=== PATIENT | female | born 2000 | race Caucasian/White ===

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

== ENCOUNTER 2019-03-07 19:18 | Emergency (ER) | payer OTHER ==
[2019-03-07] MEDS ORDERED: MORPHINE SULFATE 2 MG INJ IV ONE (19:37)
[2019-03-07] MEDS ORDERED: Zofran 4 MG/2 ML VIAL IV ONE (19:37)
[2019-03-07] MEDS ORDERED: Sodium Chloride 0.9% 1000 ML 1,000 ML IV STA (19:37)
--- NOTE | 2019-03-07 19:37 | ERPHSYRPT ---
- History of Present Illness Time Seen by Provider: 03/07/19 19:30 Historian: patient, other (friend) Exam Limitations: no limitations Patient Subjective Stated Complaint: Abdominal pain Triage Nursing Assessment: Patient ambulated back to ED and transferred to bed per self. Patient A+O X 3. Patient's skin pink, warm and dry. Patient complains of abdominal pain for one month with N/V. Patient denies diarrhea. Patient's abdomen flat and soft with BS X4. Patient complains of sharp abdominal pain . 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 Physician History: as per patient, patient has diffuse abd pain for a month, got worse for last 3 days along with nausea. Denies any chest pain Timing/Duration: intermittent Activities at Onset: none Quality: cramping Abdominal Pain Onset Location: periumbilical, generalized abdomen Pain Radiation: no radiation Severity of Pain-Max: moderate Severity of Pain-Current: moderate Modifying Factors: Improves With: nothing Associated Symptoms: No chest pain, No diaphoresis, No diarrhea, No headache, No neck pain, No shortness of breath, No syncope, No weakness Previous symptoms: same symptoms as today Allergies/Adverse Reactions: mirtazapine [From Remeron] Allergy (Intermediate, Verified 03/07/19 19:28) Rash Home Medications: Metoprolol Succinate 25 mg Xl* [Toprol-Xl 25MG Tablets] 1 tab PO DAILY [History] Hx Tetanus, Diphtheria Vaccination/Date Given: No Hx Influenza Vaccination/Date Given: No Hx Pneumococcal Vaccination/Date Given: No Immunizations Up to Date: Yes - Review of Systems Constitutional: No Fever, No Chills Eyes: No Symptoms Ears, Nose, & Throat: No Symptoms Respiratory: No Cough, No Dyspnea Cardiac: No Chest Pain, No Edema, No Syncope Abdominal/Gastrointestinal: Abdominal Pain, No Nausea, No Vomiting, No Diarrhea Genitourinary Symptoms: No Dysuria Musculoskeletal: No Back Pain, No Neck Pain Skin: No Rash Neurological: No Dizziness, No Focal Weakness, No Sensory Changes Psychological: No Symptoms Endocrine: No Symptoms All Other Systems: Reviewed and Negative - Past Medical History Pertinent Past Medical History: Yes Neurological History: Other ENT History: No Pertinent History Cardiac History: No Pertinent History Respiratory History: No Pertinent History Endocrine Medical History: No Pertinent History Musculoskeletal History: Fractures GI Medical History: Pancreatitis, Ulcer, Other History: No Pertinent History Psycho-Social History: Anxiety, Depression, Other Female Reproductive Disorders: No Pertinent History Other Medical History: Concussion x3, vertigo, borderline personality, polyps in nasal canal, PTSD, broke growth plate in shoulder - Past Surgical History Past Surgical History: No Neuro Surgical History: No Pertinent History Cardiac: No Pertinent History Respiratory: No Pertinent History Gastrointestinal: No Pertinent History, Other Genitourinary: No Pertinent History Musculoskeletal: No Pertinent History Female Surgical History: No Pertinent History Other Surgical History: no surgeries, egd - Social History Smoking Status: Never smoker Exposure to second hand smoke: Yes Drug Use: none Patient Lives Alone: No - Female History Hx Last Menstrual Period: 2 weeks agp Hx Now: No - Nursing Vital Signs Nursing Vital Signs: Initial Vital Signs Temperature 98.1 F 03/07/19 19:30 Pain Scale Pain Intensity 5 - Physical Exam General Appearance: no apparent distress, alert, other (patient 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 for for 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 and 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 female RN) Eye Exam: PERRL/EOMI, eyes nml inspection Ears, Nose, Throat Exam: normal ENT inspection, pharynx normal, moist mucous membranes Neck Exam: normal inspection, non-tender, supple, full range of motion Respiratory Exam: normal breath sounds, lungs clear, No respiratory distress Cardiovascular Exam: regular rate/rhythm, normal heart sounds Gastrointestinal/Abdomen Exam: soft, normal bowel sounds, tenderness, No mass, No organomegaly, No splenomegaly Pelvic Exam: deferred Back Exam: normal inspection, normal range of motion, No CVA tenderness, No vertebral tenderness Extremity Exam: normal inspection, normal range of motion, pelvis stable Neurologic Exam: alert, 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, cooperative, normal mood/affect, nml cerebellar function, sensation nml, No motor deficits Skin Exam: normal color, warm, dry - CT Exams Abdomen/Pelvis CT Interpretation: Other (Right ovary and cyst and acute enteritis) Ordered Tests: Active Orders 24 hr Category Date Time Status IV Insertion STAT Care 03/07/19 19:37 Active ABDOMEN AND PELVIS W CONTRAST [CT] Stat Exams 03/07/19 19:37 Taken CBC W DIFF Stat Lab 03/07/19 20:00 Completed CMP Stat Lab 03/07/19 20:00 Completed HCG QUALITATIVE,SERUM Stat Lab 03/07/19 20:00 Completed LIPASE Stat Lab 03/07/19 20:00 Completed UA W/RFX UR CULTURE Stat Lab 03/07/19 20:04 Completed Medication Summary Discontinued Medications Generic Name Dose Route Start Last Admin Trade Name Reynaldo PRN Reason Stop Dose Admin Sodium Chloride 1,000 mls @ 999 mls/hr 03/07/19 19:37 03/07/19 20:07 Sodium Chloride 0.9% 1000 Ml IV 03/07/19 20:37 999 mls/hr .Q1H1M STA Administration Sodium Chloride Confirm 03/07/19 20:04 Sodium Chloride 0.9% 1000 Ml Administered 03/07/19 20:05 Dose 1,000 mls @ ud .ROUTE .STK-MED ONE Morphine Sulfate 2 mg 03/07/19 19:37 03/07/19 20:06 Morphine Sulfate 2 Mg Inj IV 03/07/19 19:38 2 mg STAT ONE Administration Morphine Sulfate Confirm 03/07/19 20:04 Morphine Sulfate 2 Mg Inj Administered 03/07/19 20:05 Dose 2 mg .ROUTE .STK-MED ONE Ondansetron HCl 4 mg 03/07/19 19:37 03/07/19 20:05 Zofran 4 Mg/2 Ml Vial IV 03/07/19 19:38 4 mg STAT ONE Administration Ondansetron HCl Confirm 03/07/19 20:04 Zofran 4 Mg/2 Ml Vial Administered 03/07/19 20:05 Dose 4 mg .ROUTE .STK-MED ONE Lab/Rad Data: Laboratory Result Diagrams 03/07/19 20:00 03/07/19 20:00 Laboratory Results 03/07/19 03/07/19 03/07/19 Range/Units 20:04 20:00 20:00 WBC (4.0-10.5) K/mm3 RBC (4.1-5.4) M/mm3 Hgb (12.0-16.0) gm/dl Hct (35-47) % MCV (78-100) fl MCH (26-32) pg MCHC (32-36) g/dl RDW (11.5-14.0) % Plt Count (150-450) K/mm3 MPV (6-9.5) fl Gran % (36.0-66.0) % Eos # (Auto) (0-0.5) Absolute Lymphs (auto) (1.0-4.6) Absolute Monos (auto) (0.0-1.3) Lymphocytes % (24.0-44.0) % Monocytes % (0.0-12.0) % Eosinophils % (0.00-5.0) % Basophils % (0.0-0.4) % Absolute Granulocytes (1.4-6.9) Basophils # (0-0.4) Sodium 142 (137-145) mmol/L Potassium 3.8 (3.5-5.1) mmol/L Chloride 106 (98-107) mmol/L Carbon Dioxide 25 (22-30) mmol/L Anion Gap 15.6 H (5-15) MEQ/L BUN 9 (7-17) mg/dL Creatinine 0.78 (0.52-1.04) mg/dL Estimated GFR > 60.0 ML/MIN Glucose 88 (74-106) mg/dL Calcium 9.5 (8.4-10.2) mg/dL Total Bilirubin 0.70 (0.2-1.3) mg/dL AST 20 (14-36) U/L ALT 15 (0-35) U/L Alkaline Phosphatase 101 (38-126) U/L Serum Total Protein 8.1 (6.3-8.2) g/dL Albumin 4.6 (3.5-5.0) g/dL Lipase 173 (23-300) U/L Serum , Qual NEGATIVE (Negative) Urine Color YELLOW (YELLOW) Urine Appearance SLIGHTLY CLOUDY (CLEAR) Urine pH 5.0 (5-6) Ur Specific [place] 1.018 (1.005-1.025) Urine Protein NEGATIVE (Negative) Urine Ketones NEGATIVE (NEGATIVE) Urine Blood NEGATIVE (0-5) Star/ul Urine Nitrite NEGATIVE (NEGATIVE) Urine Bilirubin NEGATIVE (NEGATIVE) Urine Urobilinogen NEGATIVE (0-1) mg/dL Ur Leukocyte Esterase TRACE (NEGATIVE) Urine WBC (Auto) 0-2 (0-5) /HPF Urine RBC (Auto) NONE (0-2) /HPF U Epithel Cells (Auto) RARE (FEW) /HPF Urine Bacteria (Auto) NONE (NEGATIVE) /HPF Urine Mucus (Auto) SLIGHT (NEGATIVE) /HPF Urine Culture Reflexed NO (NO) Urine Glucose NEGATIVE (NEGATIVE) mg/dL 03/07/19 Range/Units 20:00 WBC 9.1 (4.0-10.5) K/mm3 RBC 4.64 (4.1-5.4) M/mm3 Hgb 13.5 (12.0-16.0) gm/dl Hct 41.2 (35-47) % MCV 88.8 (78-100) fl MCH 29.1 (26-32) pg MCHC 32.8 (32-36) g/dl RDW 12.9 (11.5-14.0) % Plt Count 246 (150-450) K/mm3 MPV 10.9 H (6-9.5) fl Gran % 71.4 H (36.0-66.0) % Eos # (Auto) 0.03 (0-0.5) Absolute Lymphs (auto) 1.91 (1.0-4.6) Absolute Monos (auto) 0.66 (0.0-1.3) Lymphocytes % 20.9 L (24.0-44.0) % Monocytes % 7.2 (0.0-12.0) % Eosinophils % 0.3 (0.00-5.0) % Basophils % 0.2 (0.0-0.4) % Absolute Granulocytes 6.52 (1.4-6.9) Basophils # 0.02 (0-0.4) Sodium (137-145) mmol/L Potassium (3.5-5.1) mmol/L Chloride (98-107) mmol/L Carbon Dioxide (22-30) mmol/L Anion Gap (5-15) MEQ/L BUN (7-17) mg/dL Creatinine (0.52-1.04) mg/dL Estimated GFR ML/MIN Glucose (74-106) mg/dL Calcium (8.4-10.2) mg/dL Total Bilirubin (0.2-1.3) mg/dL AST (14-36) U/L ALT (0-35) U/L Alkaline Phosphatase (38-126) U/L Serum Total Protein (6.3-8.2) g/dL Albumin (3.5-5.0) g/dL Lipase (23-300) U/L Serum , Qual (Negative) Urine Color (YELLOW) Urine Appearance (CLEAR) Urine pH (5-6) Ur Specific [place] (1.005-1.025) Urine Protein (Negative) Urine Ketones (NEGATIVE) Urine Blood (0-5) Star/ul Urine Nitrite (NEGATIVE) Urine Bilirubin (NEGATIVE) Urine Urobilinogen (0-1) mg/dL Ur Leukocyte Esterase (NEGATIVE) Urine WBC (Auto) (0-5) /HPF Urine RBC (Auto) (0-2) /HPF U Epithel Cells (Auto) (FEW) /HPF Urine Bacteria (Auto) (NEGATIVE) /HPF Urine Mucus (Auto) (NEGATIVE) /HPF Urine Culture Reflexed (NO) Urine Glucose (NEGATIVE) mg/dL - Progress Progress: improved Progress Note: 03/07/19 21:[address] report. Arm on a hold with vrad Counseled pt/family regarding: lab results, diagnosis, need for follow-up, rad results - Departure Departure Disposition: Home Clinical Impression: Enteritis, Abdominal pain Ovarian cyst Qualifiers: Laterality: right Qualified Code(s): N83.201 - Unspecified ovarian cyst, right side Condition: Stable Critical Care Time: No Referrals: LYNETTE DOHERTY [Primary Care Provider] - Forms: Work/School Release Form Plan of Treatment: See PCP in 2-3 days. Return to ER for emergency Prescriptions: Metronidazole 500 mg [Flagyl 500 MG] 500 mg PO TID 7 Days #21 tablet
[2019-03-07 20:04] LABS: BASOPHIL % 0.2 % (0.0-0.4); Basophil (Absolute #) 0.02 (0-0.4); Eosinophil % 0.3 % (0.00-5.0); Eosinophil (Absolute #) 0.03 (0-0.5); Granulocyte Absolute (ANC) 6.52 (1.4-6.9); Granulocytes % 71.4 % (36.0-66.0); Hematocrit 41.2 % (35-47); Hemoglobin 13.5 gm/dl (12.0-16.0); Lymphocyte (Absolute #) 1.91 (1.0-4.6); Lymphocytes % 20.9 % (24.0-44.0); Mean Cell Volume 88.8 fl (78-100); Mean Corpuscular Hemoglobin 29.1 pg (26-32); Mean Corpuscular Hgb Concent. 32.8 g/dl (32-36); Mean Platelet Volume 10.9 fl (6-9.5); Monocyte (Absolute #) 0.66 (0.0-1.3); Monocytes % 7.2 % (0.0-12.0); Platelet Count 246 K/mm3 (150-450); Red Blood Count 4.64 M/mm3 (4.1-5.4); Red Cell Distribution Width 12.9 % (11.5-14.0); White Blood Count 9.1 K/mm3 (4.0-10.5)
[2019-03-07] MEDS ORDERED: Sodium Chloride 0.9% 1000 ML 1,000 ML ONE (20:04)
[2019-03-07] MEDS ORDERED: Zofran 4 MG/2 ML VIAL ONE (20:04)
[2019-03-07] MEDS ORDERED: MORPHINE SULFATE 2 MG INJ ONE (20:04)
[2019-03-07 20:14] LABS: ALBUMIN 4.6 g/dL (3.5-5.0); ALKALINE PHOSPHATASE 101 U/L (38-126); ANION GAP 15.6 MEQ/L (5-15); BLOOD UREA NITROGEN 9 mg/dL (7-17); CHLORIDE 106 mmol/L (98-107); Calcium 9.5 mg/dL (8.4-10.2); Carbon Dioxide 25 mmol/L (22-30); Creatinine 1 0.78 mg/dL (0.52-1.04); Glucose 88 mg/dL (74-106); LIPASE 173 U/L (23-300); Potassium 3.8 mmol/L (3.5-5.1); SGOT/AST 20 U/L (14-36); SGPT/ALT 15 U/L (0-35); SODIUM 142 mmol/L (137-145); Total Protein 8.1 g/dL (6.3-8.2)
[2019-03-07 20:23] LABS: Appearance SLIGHTLY CLOUDY (CLEAR); Bilirubin NEGATIVE (NEGATIVE); Blood NEGATIVE Ery/ul (0-5); Epithelial Cells RARE /HPF (FEW); Glucose NEGATIVE (NEGATIVE); Ketones NEGATIVE (NEGATIVE); Leukocyte Esterase TRACE (NEGATIVE); Mucus SLIGHT /HPF (NEGATIVE); Nitrite NEGATIVE (NEGATIVE); Protein,Urine Dip NEGATIVE (Negative); Specific Gravity 1.018 (1.005-1.025); Urobilinogen NEGATIVE mg/dL (0-1); WBC 0-2 /HPF (0-5)
[2019-03-07 21:21] VITALS: O2SAT 99
[2019-03-07 22:48] VITALS: BP 127/80; PULSE 86
--- NOTE | 2019-03-08 08:49 | XRAY ---
Indication: Upper abdomen pain, nausea, and vomiting. History of stomach ulcers and pancreatitis. Multiple contiguous axial images obtained through the abdomen and pelvis using 80 cc Isovue 370 contrast only. Comparison: November 25, 2016. Lung bases remain clear. Heart is not enlarged. Stomach is distended with food/fluid. Noncontrasted stomach and bowel loops appear nonobstructed. Small bowel loops now demonstrates mild fluid distention with wall thickening/enhancement, possible enteritis. Normal appendix. New 4 cm right ovary cyst. Tiny cul-de-sac fluid presumed physiologic from rupture/leaking cyst. No free air. Remaining liver, gallbladder, pancreas, spleen, adrenal glands, kidneys, ureters, bladder, uterus, and aorta appear unremarkable. No pathologic retroperitoneal lymphadenopathy. Osseous structures intact. Impression: 1. New 4 cm right ovary cyst with tiny cul-de-sac fluid. 2. Mild fluid distended small bowel loops with wall thickening/enhancement. Rule out enteritis. 3. Remaining CT abdomen/pelvis with contrast exam is negative. Comment: Preliminary interpretation was made by [facility]. No critical discrepancy. CTDI 10.95
== END 2019-03-07 22:49 | disposition home or self-care (01) ==
LOC: ED 19:18
DX: R10.9 Unspecified abdominal pain (principal); N83.201 Unspecified ovarian cyst, right side
CPT/HCPCS: 36000; 36415; 74177; 80053; 81001; 81025; 83690; 85025; 96360; 96374; 96375; 99284; J2270; J2405

== ENCOUNTER 2019-11-20 18:23 | Emergency (ER) | payer OTHER ==
[2019-11-20] MEDS ORDERED: Zofran 4 MG/2 ML VIAL IV ONE (19:20)
[2019-11-20] MEDS ORDERED: Sodium Chloride 0.9% 1000 ML 1,000 ML IV STA (19:20)
[2019-11-20] MEDS ORDERED: MORPHINE SULFATE 2 MG INJ IV ONE (19:20)
[2019-11-20] MEDS ORDERED: Zofran 4 MG/2 ML VIAL ONE (19:27)
[2019-11-20] MEDS ORDERED: Sodium Chloride 0.9% 1000 ML 1,000 ML ONE (19:27)
[2019-11-20] MEDS ORDERED: MORPHINE SULFATE 2 MG INJ ONE (19:27)
[2019-11-20 19:30] LABS: Absolute Neutrophil Ct (ANC) 4.91 (1.4-6.9); BASOPHIL % 0.3 % (0.0-0.4); Basophil (Absolute #) 0.02 (0-0.4); Eosinophil % 0.9 % (0.00-5.0); Eosinophil (Absolute #) 0.07 (0-0.5); Hematocrit 41.5 % (35-47); Hemoglobin 13.6 gm/dl (12.0-16.0); Lymphocyte (Absolute #) 1.89 (1.0-4.6); Lymphocytes % 24.8 % (24.0-44.0); Mean Cell Volume 88.9 fl (78-100); Mean Corpuscular Hemoglobin 29.1 pg (26-32); Mean Corpuscular Hgb Concent. 32.8 g/dl (32-36); Mean Platelet Volume 11.3 fl (7.5-11.0); Monocyte (Absolute #) 0.73 (0.0-1.3); Monocytes % 9.6 % (0.0-12.0); Neutrophil % 64.4 % (36.0-66.0); Platelet Count 243 K/mm3 (150-450); Red Blood Count 4.67 M/mm3 (4.1-5.4); Red Cell Distribution Width 12.8 % (11.5-14.0); White Blood Count 7.6 K/mm3 (4.0-10.5)
[2019-11-20 19:34] LABS: ALBUMIN 4.4 g/dL (3.5-5.0); ALKALINE PHOSPHATASE 122 U/L (38-126); ANION GAP 12.2 MEQ/L (5-15); BLOOD UREA NITROGEN 9 mg/dL (7-17); CHLORIDE 106 mmol/L (98-107); Calcium 9.2 mg/dL (8.4-10.2); Carbon Dioxide 25 mmol/L (22-30); Creatinine 1 0.79 mg/dL (0.52-1.04); Glucose 88 mg/dL (74-106); LIPASE 75 U/L (23-300); Potassium 3.8 mmol/L (3.5-5.1); SGOT/AST 27 U/L (14-36); SGPT/ALT 27 U/L (0-35); SODIUM 140 mmol/L (137-145); Total Protein 7.8 g/dL (6.3-8.2)
[2019-11-20 20:40] LABS: Appearance SLIGHTLY CLOUDY (CLEAR); Bilirubin NEGATIVE (NEGATIVE); Blood NEGATIVE Ery/ul (0-5); Epithelial Cells RARE /HPF (FEW); Glucose NEGATIVE (NEGATIVE); Ketones NEGATIVE (NEGATIVE); Leukocyte Esterase NEGATIVE (NEGATIVE); Mucus SLIGHT /HPF (NEGATIVE); Nitrite NEGATIVE (NEGATIVE); Protein,Urine Dip NEGATIVE (Negative); Specific Gravity 1.024 (1.005-1.025); Urobilinogen 2 mg/dL (0-1); WBC 0-2 /HPF (0-5)
[2019-11-20 20:41] LABS: Bacteria NONE SEEN /HPF (NEGATIVE)
--- NOTE | 2019-11-20 21:43 | ERPHSYRPT ---
- History of Present Illness Time Seen by Provider: 11/20/19 19:20 Historian: patient Exam Limitations: no limitations Patient Subjective Stated Complaint: Patient has a history of pancreatitis and ovarian cysts. The patient states that she began having pain after she ate breakfast this morning, but has had nausea and vomiting for the past couple weeks. Pain would not subside, so patient called doctor and was told to come to the ER> Triage Nursing Assessment: Patient is ambulatory, alert and oriented, color within normal limits..is having abdoming pain, mostly on left side, bowel sounds are present x4, but hypoactive on left quadrants, patient complains of n/ v for past couple weeks, but not diarrhea. Physician History: Patient is a 19-year-old female presents to our ED with intermittent abdominal pain for 2 weeks. Pain is primarily at her left upper quadrant left flank area. Pain typically occurs after she eats. Patient feels somewhat nauseous. She has vomited several times in the past due to pain. No diarrhea. Patient has infrequent bowel movements. No trauma. No fevers. No pelvic pain. No vaginal discharge. Patient has a history of pancreatitis is concerned that she may have pancreatitis at this time. She also has a history of ovarian cyst. However her pain is not in her pelvis. Symptoms are mild to moderate in intensity. No specific worsening or improving factors. Patient is otherwise healthy. She voices no other complaints at this time. Timing/Duration: week(s) (2 weeks) Activities at Onset: other (Pain typically occurs after she eats.) Quality: cramping, other (Pain described as a cramp-like sensation that is intermittent.) Abdominal Pain Onset Location: [facility] Pain Radiation: no radiation Severity of Pain-Max: moderate Severity of Pain-Current: none Modifying Factors: Improves With: other Associated Symptoms: No back, No chest pain, No diaphoresis, No diarrhea, No fever/chills, No headache, No heartburn, No loss of appetite, No nausea, No neck pain, No shortness of breath, No syncope, No weakness Allergies/Adverse Reactions: mirtazapine [From Remeron] Allergy (Intermediate, Verified 11/20/19 19:29) Tightness of Throat Home Medications: Metoprolol Succinate 25 mg Xl* [Toprol-Xl 25MG Tablets] 2 tab PO BID 09/20/ 19 [History] Albuterol 8 gm Mdi Hfa [Ventolin Hfa MDI] 2 puff NEB QID 11/20/19 [History ] Aripiprazole [Abilify Maintena] 400 mg IM 11/20/19 [History] Hydroxyzine HCl 100 mg PO HS 11/20/19 [History] Hx Tetanus, Diphtheria Vaccination/Date Given: Yes Hx Influenza Vaccination/Date Given: No Hx Pneumococcal Vaccination/Date Given: No Immunizations Up to Date: Yes Travel Risk - International Travel Have you traveled outside of the country in past 3 weeks: No Have you or anyone close to you been diagnosed with or: No Do your reside in a community with a known COVID-19 case?: Yes If Yes where:: [facility] - Coronavirus Screening Has patient experienced Coronavirus symptoms: No - Review of Systems Constitutional: No Symptoms, No Fever, No Chills Eyes: No Symptoms Ears, Nose, & Throat: No Symptoms Respiratory: No Symptoms, No Cough, No Dyspnea Cardiac: No Symptoms, No Chest Pain, No Edema, No Syncope Abdominal/Gastrointestinal: No Symptoms, Abdominal Pain, Nausea, Vomiting, No Diarrhea Genitourinary Symptoms: No Symptoms, No Dysuria Musculoskeletal: No Symptoms, No Back Pain, No Neck Pain Skin: No Symptoms, No Rash Neurological: No Symptoms, No Dizziness, No Focal Weakness, No Sensory Changes Psychological: No Symptoms Endocrine: No Symptoms Hematologic/Lymphatic: No Symptoms Immunological/Allergic: No Symptoms All Other Systems: Reviewed and Negative - Past Medical History Pertinent Past Medical History: Yes Neurological History: No Pertinent History, Migraines, Other ENT History: No Pertinent History Cardiac History: No Pertinent History, Other Respiratory History: Asthma Endocrine Medical History: No Pertinent History Musculoskeletal History: No Pertinent History, Fractures GI Medical History: Pancreatitis, Ulcer, Other History: No Pertinent History Psycho-Social History: Anxiety, Bipolar, Depression, Other Female Reproductive Disorders: No Pertinent History, Other Other Medical History: Murmur and rapid heart rate. R foot fx currently; pt does not recall specific bone. Bone disease, unknown. Vertigo. Ovarian cysts. PTSD, and borderline personality disorder - Past Surgical History Past Surgical History: No Neuro Surgical History: No Pertinent History Cardiac: No Pertinent History Respiratory: No Pertinent History Gastrointestinal: No Pertinent History, Other Genitourinary: No Pertinent History Musculoskeletal: No Pertinent History Female Surgical History: No Pertinent History Other Surgical History: no surgeries, egd and colonoscopy - Social History Smoking Status: Never smoker Exposure to second hand smoke: Yes Drug Use: none Patient Lives Alone: No (with mom) - Female History Hx Last Menstrual Period: 11/03/2019 Hx Now: No - Nursing Vital Signs Nursing Vital Signs: Initial Vital Signs Temperature 98.8 F 11/20/19 19:09 Pulse Rate 100 H 11/20/19 19:09 Blood Pressure 124/75 11/20/19 19:09 O2 Sat by Pulse Oximetry 100 11/20/19 19:09 Pain Scale Pain Intensity 3 - Physical Exam General Appearance: no apparent distress, alert Eye Exam: PERRL/EOMI, eyes nml inspection Ears, Nose, Throat Exam: normal ENT inspection, pharynx normal, moist mucous membranes Neck Exam: normal inspection, non-tender, supple, full range of motion Respiratory Exam: normal breath sounds, lungs clear, No respiratory distress Cardiovascular Exam: regular rate/rhythm, normal heart sounds Gastrointestinal/Abdomen Exam: soft, tenderness, other (Mild tenderness to palpation at left flank left upper quadrant.), No mass, No guarding, No pulsatile mass Pelvic Exam: not done Rectal Exam: deferred Back Exam: normal inspection, normal range of motion, No CVA tenderness, No vertebral tenderness Extremity Exam: normal inspection, normal range of motion, pelvis stable Neurologic Exam: alert, 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, cooperative, normal mood/affect, nml cerebellar function, sensation nml, No motor deficits Skin Exam: normal color, warm, dry Lymphatic Exam: adenopathy SpO2 Interpretation: normal SpO2: 100 O2 Delivery: Room Air - Course Nursing assessment & vital signs reviewed: Yes - CT Exams Abdomen/Pelvis CT Interpretation: Tele-radiologist Report (Appendix. New diffuse fecal stasis. Remaining abdomen pelvis exam is negative.) Ordered Tests: Active Orders 24 hr Category Date Time Status IV Insertion STAT Care 11/20/19 19:20 Active ABDOMEN AND PELVIS W CONTRAST [CT] Stat Exams 11/20/19 19:21 Taken CBC W DIFF Stat Lab 11/20/19 19:20 Completed CMP Stat Lab 11/20/19 19:20 Completed HCG,QUALITATIVE URINE Stat Lab 11/20/19 20:14 Completed LIPASE Stat Lab 11/20/19 19:20 Completed UA W/RFX UR CULTURE Stat Lab 11/20/19 20:14 Completed Medication Summary Discontinued Medications Generic Name Dose Route Start Last Admin Trade Name Reynaldo PRN Reason Stop Dose Admin Sodium Chloride 1,000 mls @ 999 mls/hr 11/20/19 19:20 11/20/19 19:36 Sodium Chloride 0.9% 1000 Ml IV 11/20/19 20:20 999 mls/hr .Q1H1M STA Administration Sodium Chloride Confirm 11/20/19 19:27 Sodium Chloride 0.9% 1000 Ml Administered 11/20/19 19:28 Dose 1,000 mls @ ud .ROUTE .STK-MED ONE Morphine Sulfate 2 mg 11/20/19 19:20 11/20/19 19:36 Morphine Sulfate 2 Mg Inj IV 11/20/19 19:21 2 mg STAT ONE Administration Morphine Sulfate Confirm 11/20/19 19:27 Morphine Sulfate 2 Mg Inj Administered 11/20/19 19:28 Dose 2 mg .ROUTE .STK-MED ONE Ondansetron HCl 4 mg 11/20/19 19:20 11/20/19 19:37 Zofran 4 Mg/2 Ml Vial IV 11/20/19 19:21 4 mg STAT ONE Administration Ondansetron HCl Confirm 11/20/19 19:27 Zofran 4 Mg/2 Ml Vial Administered 11/20/19 19:28 Dose 4 mg .ROUTE .STK-MED ONE Lab/Rad Data: Laboratory Result Diagrams 11/20/19 19:20 11/20/19 19:20 Laboratory Results 11/20/19 11/20/19 11/20/19 Range/Units 20:14 20:14 19:20 WBC (4.0-10.5) K/mm3 RBC (4.1-5.4) M/mm3 Hgb (12.0-16.0) gm/dl Hct (35-47) % MCV (78-100) fl MCH (26-32) pg MCHC (32-36) g/dl RDW (11.5-14.0) % Plt Count (150-450) K/mm3 MPV (7.5-11.0) fl Gran % (36.0-66.0) % Eos # (Auto) (0-0.5) Absolute Lymphs (auto) (1.0-4.6) Absolute Monos (auto) (0.0-1.3) Lymphocytes % (24.0-44.0) % Monocytes % (0.0-12.0) % Eosinophils % (0.00-5.0) % Basophils % (0.0-0.4) % Absolute Granulocytes (1.4-6.9) Basophils # (0-0.4) Sodium 140 (137-145) mmol/L Potassium 3.8 (3.5-5.1) mmol/L Chloride 106 (98-107) mmol/L Carbon Dioxide 25 (22-30) mmol/L Anion Gap 12.2 (5-15) MEQ/L BUN 9 (7-17) mg/dL Creatinine 0.79 (0.52-1.04) mg/dL Estimated GFR > 60.0 ML/MIN Glucose 88 (74-106) mg/dL Calcium 9.2 (8.4-10.2) mg/dL Total Bilirubin 0.40 (0.2-1.3) mg/dL AST 27 (14-36) U/L ALT 27 (0-35) U/L Alkaline Phosphatase 122 (38-126) U/L Serum Total Protein 7.8 (6.3-8.2) g/dL Albumin 4.4 (3.5-5.0) g/dL Lipase 75 (23-300) U/L Urine Color YELLOW (YELLOW) Urine Appearance SLIGHTLY CLOUDY (CLEAR) Urine pH 5.0 (5-6) Ur Specific [place] 1.024 (1.005-1.025) Urine Protein NEGATIVE (Negative) Urine Ketones NEGATIVE (NEGATIVE) Urine Blood NEGATIVE (0-5) Star/ul Urine Nitrite NEGATIVE (NEGATIVE) Urine Bilirubin NEGATIVE (NEGATIVE) Urine Urobilinogen 2 (0-1) mg/dL Ur Leukocyte Esterase NEGATIVE (NEGATIVE) Urine WBC (Auto) 0-2 (0-5) /HPF Urine RBC (Auto) NONE (0-2) /HPF U Epithel Cells (Auto) RARE (FEW) /HPF Urine Bacteria (Auto) NONE SEEN (NEGATIVE) /HPF Urine Mucus (Auto) SLIGHT (NEGATIVE) /HPF Urine Culture Reflexed NO (NO) Urine Glucose NEGATIVE (NEGATIVE) mg/dL Urine HCG, Qual NEGATIVE (Negative) 11/20/19 Range/Units 19:20 WBC 7.6 (4.0-10.5) K/mm3 RBC 4.67 (4.1-5.4) M/mm3 Hgb 13.6 (12.0-16.0) gm/dl Hct 41.5 (35-47) % MCV 88.9 (78-100) fl MCH 29.1 (26-32) pg MCHC 32.8 (32-36) g/dl RDW 12.8 (11.5-14.0) % Plt Count 243 (150-450) K/mm3 MPV 11.3 H (7.5-11.0) fl Gran % 64.4 (36.0-66.0) % Eos # (Auto) 0.07 (0-0.5) Absolute Lymphs (auto) 1.89 (1.0-4.6) Absolute Monos (auto) 0.73 (0.0-1.3) Lymphocytes % 24.8 (24.0-44.0) % Monocytes % 9.6 (0.0-12.0) % Eosinophils % 0.9 (0.00-5.0) % Basophils % 0.3 (0.0-0.4) % Absolute Granulocytes 4.91 (1.4-6.9) Basophils # 0.02 (0-0.4) Sodium (137-145) mmol/L Potassium (3.5-5.1) mmol/L Chloride (98-107) mmol/L Carbon Dioxide (22-30) mmol/L Anion Gap (5-15) MEQ/L BUN (7-17) mg/dL Creatinine (0.52-1.04) mg/dL Estimated GFR ML/MIN Glucose (74-106) mg/dL Calcium (8.4-10.2) mg/dL Total Bilirubin (0.2-1.3) mg/dL AST (14-36) U/L ALT (0-35) U/L Alkaline Phosphatase (38-126) U/L Serum Total Protein (6.3-8.2) g/dL Albumin (3.5-5.0) g/dL Lipase (23-300) U/L Urine Color (YELLOW) Urine Appearance (CLEAR) Urine pH (5-6) Ur Specific [place] (1.005-1.025) Urine Protein (Negative) Urine Ketones (NEGATIVE) Urine Blood (0-5) Star/ul Urine Nitrite (NEGATIVE) Urine Bilirubin (NEGATIVE) Urine Urobilinogen (0-1) mg/dL Ur Leukocyte Esterase (NEGATIVE) Urine WBC (Auto) (0-5) /HPF Urine RBC (Auto) (0-2) /HPF U Epithel Cells (Auto) (FEW) /HPF Urine Bacteria (Auto) (NEGATIVE) /HPF Urine Mucus (Auto) (NEGATIVE) /HPF Urine Culture Reflexed (NO) Urine Glucose (NEGATIVE) mg/dL Urine HCG, Qual (Negative) - Progress Progress: improved Progress Note: 11/20/19 21:56 Patient reassessed. She has no active pain at this time. Work-up essentially negative. Patient advised [id number] laxative. Patient advised high- fiber diet plenty of water. Patient understands and agrees to plan of care. She agrees to follow-up with her primary care doctor within 48 hours for reevaluation. Counseled pt/family regarding: lab results, diagnosis, need for follow-up, rad results - Departure Departure Disposition: Home Clinical Impression: Abdominal pain, Constipation Condition: Stable Critical Care Time: No Referrals: LYNETTE DOHERTY [Primary Care Provider] - Additional Instructions: Discharge/Care Plan FLAVIA OSORIO was seen on 11/20/19 in the Emergency Room. The patient was counseled regarding Diagnosis,Lab results, Imaging studies, need for follow up and when to return to the Emergency Room. Prescriptions given: Discharge Note I have spoken with the patient and/or caregivers. I have explained the patient' s condition, diagnosis and treatment plan based on the information available to me at this time. I have answered the patient's and/or caregiver's questions and addressed any concerns. The patient and/or caregivers have as good understanding of the patient's diagnosis, condition and treatment plan as can be expected at this point. The vital signs have been stable. The patient's condition is stable and appropriate for discharge from the emergency department. The patient will pursue further outpatient evaluation with the primary care physician or other designated or consulting physician as outlined in the discharge instructions. The patient and/or caregivers are agreeable to this plan of care and follow-up instructions have been explained in detail. The patient and/or caregivers have received these instruction. The patient/and or caregivers are aware that any significant change in condition or worsening of symptoms should prompt an immediate return to this or the closest emergency department or call 911.
[2019-11-20 21:49] VITALS: BP 123/92; PULSE 88
[2019-11-20 21:50] VITALS: O2SAT 100
--- NOTE | 2019-11-21 08:39 | XRAY ---
Indication: Left abdominal pain, nausea, and vomiting. History pancreatitis. Multiple contiguous axial images obtained through the abdomen and pelvis using 80 cc Isovue 370 contrast only. Comparison: March 07, 2019. Lung bases remain clear. Heart is not enlarged. Noncontrasted stomach and bowel loops appear nonobstructed. Normal appendix. There is now mild diffuse scattered colonic fecal debris throughout. No free fluid/air. Gallbladder contracted without gallstones. Remaining liver, pancreas, spleen, adrenal glands, kidneys, ureters, bladder, uterus, and aorta appear unremarkable. No pathologic retroperitoneal lymphadenopathy. Osseous structures intact. No ventral or inguinal hernias. Impression: 1. New fecal stasis without obstruction. 2. Remaining CT abdomen/pelvis with contrast exam is negative.
== END 2019-11-20 21:50 | disposition home or self-care (01) ==
LOC: ED 18:23
DX: R10.9 Unspecified abdominal pain (principal); K59.00 Constipation, unspecified
CPT/HCPCS: 36000; 36415; 74177; 80053; 81001; 83690; 84703; 85025; 96360; 96374; 96375; 99284; J2270; J2405

== ENCOUNTER 2020-07-17 07:08 | Observation (INO) | payer OTHER ==
--- NOTE | 2020-07-17 07:15 | ERPHSYRPT ---
- History of Present Illness Time Seen by Provider: 07/17/20 07:14 Historian: patient Exam Limitations: no limitations Physician History: This is a 20-year-old white female has a history of recurrent pancreatitis and ovarian cyst. She has history of borderline personality disorder as well as PTSD, peptic ulcer disease and migraine headaches. Patient underwent an ERCP with what of appears to be by her history, papillotomy or sphincterotomy. This was performed 2 days ago. Patient states that ever since the procedure she has had significant left side abdominal pain which radiates into her back. She has had nausea. She has had no vomiting today but she did have vomiting yesterday. Patient states that she has been taking oxycodone and that medicine is not rel ieving her pain. Her last dose of oxycodone was approximately an hour and a half prior to arrival to this emergency department. 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 Timing/Duration: day(s) (2) Activities at Onset: none Quality: sharpness, stabbing Abdominal Pain Onset Location: [facility] Pain Radiation: back Severity of Pain-Max: moderate Severity of Pain-Current: moderate Modifying Factors: Improves With: analgesics (Oxycodone not helping) Associated Symptoms: nausea, vomiting Previous symptoms: same symptoms as today, recently seen, recently treated Allergies/Adverse Reactions: mirtazapine [From Remeron] Allergy (Intermediate, Verified 07/17/20 07:17) Tightness of Throat Home Medications: Metoprolol Succinate 25 mg Xl* [Toprol-Xl 25MG Tablets] 2 tab PO BID 03/07/19 [History] Albuterol 8 gm Mdi Hfa [Ventolin Hfa MDI] 2 puff NEB QID 11/20/19 [Hist ory] Hx Tetanus, Diphtheria Vaccination/Date Given: Yes Hx Influenza Vaccination/Date Given: No Hx Pneumococcal Vaccination/Date Given: No Travel Risk - International Travel Have you traveled outside of the country in past 3 weeks: No - Coronavirus Screening Are you exhibiting any of the following symptoms?: No Close contact with a COVID-19 positive Pt in past 14-21 Days: No - Review of Systems Constitutional: No Symptoms Eyes: No Symptoms Ears, Nose, & Throat: No Symptoms Respiratory: No Symptoms Cardiac: No Symptoms Abdominal/Gastrointestinal: Abdominal Pain, Nausea, Vomiting Genitourinary Symptoms: No Symptoms Musculoskeletal: No Symptoms Skin: No Symptoms Neurological: No Symptoms Psychological: No Symptoms Endocrine: No Symptoms Hematologic/Lymphatic: No Symptoms Immunological/Allergic: No Symptoms All Other Systems: Reviewed and Negative - Past Medical History Pertinent Past Medical History: Yes Neurological History: No Pertinent History, Migraines, Other ENT History: No Pertinent History Cardiac History: No Pertinent History, Other Respiratory History: Asthma Endocrine Medical History: No Pertinent History Musculoskeletal History: No Pertinent History, Fractures GI Medical History: Pancreatitis, Ulcer, Other History: No Pertinent History Psycho-Social History: Anxiety, Bipolar, Depression, Other Female Reproductive Disorders: No Pertinent History, Other Other Medical History: Murmur and rapid heart rate. R foot fx currently; pt does not recall specific bone. Bone disease, unknown. Vertigo. Ovarian cysts. PTSD, and borderline personality disorder - Past Surgical History Past Surgical History: No Neuro Surgical History: No Pertinent History Cardiac: No Pertinent History Respiratory: No Pertinent History Gastrointestinal: No Pertinent History, Other Genitourinary: No Pertinent History Musculoskeletal: No Pertinent History Female Surgical History: No Pertinent History Other Surgical History: no surgeries, egd and colonoscopy - Social History Smoking Status: Never smoker Exposure to second hand smoke: Yes Drug Use: none Patient Lives Alone: No (with mom) - Nursing Vital Signs Nursing Vital Signs: Initial Vital Signs Temperature 99.2 F 07/17/20 07:19 Pulse Rate 119 H 07/17/20 07:19 Respiratory Rate 18 07/17/20 07:19 Blood Pressure 137/77 07/17/20 07:19 O2 Sat by Pulse Oximetry 98 07/17/20 07:19 Pain Scale Pain Intensity 7 - Physical Exam General Appearance: mild distress, alert, anxiety Eye Exam: PERRL/EOMI, eyes nml inspection, No scleral icterus Ears, Nose, Throat Exam: normal ENT inspection, moist mucous membranes Neck Exam: normal inspection, non-tender, supple, full range of motion Respiratory Exam: normal breath sounds, lungs clear, airway intact, No chest tenderness, No respiratory distress Cardiovascular Exam: tachycardia Gastrointestinal/Abdomen Exam: soft, normal bowel sounds, tenderness, guarding, No rebound Pelvic Exam: not done Rectal Exam: not done Back Exam: normal inspection, normal range of motion, No CVA tenderness, No vertebral tenderness Extremity Exam: normal inspection, normal range of motion, pelvis stable Neurologic Exam: alert, 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, cooperative, customer 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 II-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 nml as tested, normal mood/affect, nml cerebellar function, nml station & gait, sensation nml Skin Exam: normal color, warm, dry Lymphatic Exam: No adenopathy SpO2 Interpretation: normal O2 Delivery: Room Air Ordered Tests: Active Orders 24 hr Category Date Time Status Clean Catch Urine Specimen STAT Care 07/17/20 07:49 Active IV Insertion STAT Care 07/17/20 07:49 Active ABDOMEN AND PELVIS W/0 CONTRAS [CT] Stat Exams 07/17/20 07:50 Taken AMYLASE Stat Lab 07/17/20 07:55 Completed CBC W DIFF Stat Lab 07/17/20 07:55 Completed CMP Stat Lab 07/17/20 07:55 Completed LIPASE Stat Lab 07/17/20 07:55 Completed Lactic Acid Stat Lab 07/17/20 07:49 Completed Urine Triage Profile Stat Lab 07/17/20 07:55 Completed Transfer Order Routine Transfer 07/17/20 Ordered Medication Summary Discontinued Medications Generic Name Dose Route Start Last Admin Trade Name Wilnerq PRN Reason Stop Dose Admin Hydromorphone HCl 1 mg 07/17/20 07:49 07/17/20 07:57 Hydromorphone 1 Mg/Ml Injection IV 07/17/20 07:50 1 mg STAT ONE Administration Hydromorphone HCl Confirm 07/17/20 07:56 Hydromorphone 1 Mg/Ml Injection Administered 07/17/20 07:57 Dose 1 mg .ROUTE .STK-MED ONE Sodium Chloride 1,000 mls @ 999 mls/hr 07/17/20 07:49 07/17/20 09:05 Sodium Chloride 0.9% 1000 Ml IV 07/17/20 08:49 Infused .Q1H1M STA Infusion Sodium Chloride Confirm 07/17/20 07:56 Sodium Chloride 0.9% 1000 Ml Administered 07/17/20 07:57 Dose 1,000 mls @ ud .ROUTE .STK-MED ONE Ondansetron HCl 4 mg 07/17/20 07:49 07/17/20 07:57 Zofran 4 Mg/2 Ml Vial IV 07/17/20 07:50 4 mg STAT ONE Administration Ondansetron HCl Confirm 07/17/20 07:56 Zofran 4 Mg/2 Ml Vial Administered 07/17/20 07:57 Dose 4 mg .ROUTE .STK-MED ONE Lab/Rad Data: Laboratory Result Diagrams 07/17/20 07:55 07/17/20 07:55 Laboratory Results 07/17/20 07/17/20 07/17/20 Range/Units 07:55 07:55 07:55 WBC 19.5 H (4.0-10.5) K/mm3 RBC 4.60 (4.1-5.4) M/mm3 Hgb 11.7 L (12.0-16.0) gm/dl Hct 37.9 (35-47) % MCV 82.4 (78-100) fl MCH 25.4 L (26-32) pg MCHC 30.9 L (32-36) g/dl RDW 17.8 H (11.5-14.0) % Plt Count 275 (150-450) K/mm3 MPV 11.2 H (7.5-11.0) fl Gran % 82.6 H (36.0-66.0) % Eos # (Auto) 0 (0-0.5) Absolute Lymphs (auto) 1.70 (1.0-4.6) Absolute Monos (auto) 1.67 H (0.0-1.3) Lymphocytes % 8.7 L (24.0-44.0) % Monocytes % 8.6 (0.0-12.0) % Eosinophils % 0.0 (0.00-5.0) % Basophils % 0.1 (0.0-0.4) % Absolute Granulocytes 16.09 H (1.4-6.9) Basophils # 0.01 (0-0.4) Sodium 134 L (137-145) mmol/L Potassium 3.8 (3.5-5.1) mmol/L Chloride 103 (98-107) mmol/L Carbon Dioxide 24 (22-30) mmol/L Anion Gap 11.6 (5-15) MEQ/L BUN 7 (7-17) mg/dL Creatinine 0.61 (0.52-1.04) mg/dL Estimated GFR > 60.0 ML/MIN Glucose 116 H (74-106) mg/dL Lactic Acid (0.4-2.0) Calcium 9.1 (8.4-10.2) mg/dL Total Bilirubin 0.30 (0.2-1.3) mg/dL AST 21 (14-36) U/L ALT 29 (0-35) U/L Alkaline Phosphatase 102 (38-126) U/L Serum Total Protein 7.4 (6.3-8.2) g/dL Albumin 4.2 (3.5-5.0) g/dL Amylase 782 H (30-110) U/L Lipase 1215 H (23-300) U/L Urine Opiates Level POSITIVE (NEGATIVE) Ur Methadone NEGATIVE (NEGATIVE) Urine Barbiturates NEGATIVE (NEGATIVE) Ur Phencyclidine (PCP) NEGATIVE (NEGATIVE) Urine Amphetamine NEGATIVE (NEGATIVE) U Benzodiazepine Level NEGATIVE (NEGATIVE) Urine Cocaine NEGATIVE (NEGATIVE) Urine Marijuana (THC) NEGATIVE (NEGATIVE) Slides for Path Review YES 07/17/20 Range/Units 07:49 WBC (4.0-10.5) K/mm3 RBC (4.1-5.4) M/mm3 Hgb (12.0-16.0) gm/dl Hct (35-47) % MCV (78-100) fl MCH (26-32) pg MCHC (32-36) g/dl RDW (11.5-14.0) % Plt Count (150-450) K/mm3 MPV (7.5-11.0) fl Gran % (36.0-66.0) % Eos # (Auto) (0-0.5) Absolute Lymphs (auto) (1.0-4.6) Absolute Monos (auto) (0.0-1.3) Lymphocytes % (24.0-44.0) % Monocytes % (0.0-12.0) % Eosinophils % (0.00-5.0) % Basophils % (0.0-0.4) % Absolute Granulocytes (1.4-6.9) Basophils # (0-0.4) Sodium (137-145) mmol/L Potassium (3.5-5.1) mmol/L Chloride (98-107) mmol/L Carbon Dioxide (22-30) mmol/L Anion Gap (5-15) MEQ/L BUN (7-17) mg/dL Creatinine (0.52-1.04) mg/dL Estimated GFR ML/MIN Glucose (74-106) mg/dL Lactic Acid 1.3 (0.4-2.0) Calcium (8.4-10.2) mg/dL Total Bilirubin (0.2-1.3) mg/dL AST (14-36) U/L ALT (0-35) U/L Alkaline Phosphatase (38-126) U/L Serum Total Protein (6.3-8.2) g/dL Albumin (3.5-5.0) g/dL Amylase (30-110) U/L Lipase (23-300) U/L Urine Opiates Level (NEGATIVE) Ur Methadone (NEGATIVE) Urine Barbiturates (NEGATIVE) Ur Phencyclidine (PCP) (NEGATIVE) Urine Amphetamine (NEGATIVE) U Benzodiazepine Level (NEGATIVE) Urine Cocaine (NEGATIVE) Urine Marijuana (THC) (NEGATIVE) Slides for Path Review - Progress Progress: improved, pain not gone completely, re-examined Progress Note: 07/17/20 09:38 CAT scan of the abdomen pelvis without intravenous or oral contrast shows acute pancreatitis. There is mild peripancreatic fat stranding. It extends into the anterior right perirenal space toward the right pericolic gutter. Medical decision making: This patient will benefit from at least placement in observation. She has post ERCP mild acute pancreatitis. I reviewed the patient history, condition and work-up results with Dr. Cedeno who is covering for Dr. Willett this weekend. He agrees with placement in observation. We will provide the patient bowel rest, intravenous antiemetics, analgesia and intravenous fluids. We will repeat labs in the morning. Discussed with : Ananth Counseled pt/family regarding: lab results, diagnosis, rad results - Departure Departure Disposition: Observation Clinical Impression: Post-ERCP acute pancreatitis Condition: Stable Critical Care Time: No Referrals: LYNETTE WILLETT [Primary Care Provider] -
[2020-07-17] MEDS ORDERED: Hydromorphone 1 mg/ml Injection IV ONE (07:49)
[2020-07-17] MEDS ORDERED: Sodium Chloride 0.9% 1000 ML 1,000 ML IV STA (07:49)
[2020-07-17] MEDS ORDERED: Zofran 4 MG/2 ML VIAL IV ONE (07:49)
[2020-07-17] MEDS ORDERED: Hydromorphone 1 mg/ml Injection ONE (07:56)
[2020-07-17] MEDS ORDERED: Zofran 4 MG/2 ML VIAL ONE (07:56)
[2020-07-17] MEDS ORDERED: Sodium Chloride 0.9% 1000 ML 1,000 ML ONE (07:56)
[2020-07-17 08:21] LABS: ALBUMIN 4.2 g/dL (3.5-5.0); ALKALINE PHOSPHATASE 102 U/L (38-126); AMYLASE 782 U/L (30-110); ANION GAP 11.6 MEQ/L (5-15); Absolute Neutrophil Ct (ANC) 16.09 (1.4-6.9); BASOPHIL % 0.1 % (0.0-0.4); BLOOD UREA NITROGEN 7 mg/dL (7-17); Basophil (Absolute #) 0.01 (0-0.4); CHLORIDE 103 mmol/L (98-107); Calcium 9.1 mg/dL (8.4-10.2); Carbon Dioxide 24 mmol/L (22-30); Creatinine 1 0.61 mg/dL (0.52-1.04); EST GLOMERULAR FILTRATION RATE > 60.0 ML/MIN; Eosinophil (Absolute #) 0 (0-0.5); Glucose 116 mg/dL (74-106); Hematocrit 37.9 % (35-47); Hemoglobin 11.7 gm/dl (12.0-16.0); LIPASE 1215 U/L (23-300); Lymphocytes % 8.7 % (24.0-44.0); Mean Cell Volume 82.4 fl (78-100); Mean Corpuscular Hemoglobin 25.4 pg (26-32); Mean Corpuscular Hgb Concent. 30.9 g/dl (32-36); Mean Platelet Volume 11.2 fl (7.5-11.0); Monocyte (Absolute #) 1.67 (0.0-1.3); Monocytes % 8.6 % (0.0-12.0); Neutrophil % 82.6 % (36.0-66.0); Platelet Count 275 K/mm3 (150-450); Potassium 3.8 mmol/L (3.5-5.1); Red Cell Distribution Width 17.8 % (11.5-14.0); SGOT/AST 21 U/L (14-36); SGPT/ALT 29 U/L (0-35); SODIUM 134 mmol/L (137-145); Total Protein 7.4 g/dL (6.3-8.2); White Blood Count 19.5 K/mm3 (4.0-10.5)
[2020-07-17 08:34] LABS: Amphetamine,Urine NEGATIVE (NEGATIVE); Barbiturate,Urine NEGATIVE (NEGATIVE); Benzodiazepine,Urine NEGATIVE (NEGATIVE); Cocaine,Urine NEGATIVE (NEGATIVE); Methadone,Urine NEGATIVE (NEGATIVE); Opiate,Urine POSITIVE (NEGATIVE); PCP,Urine NEGATIVE (NEGATIVE); THC,Urine NEGATIVE (NEGATIVE)
[2020-07-17 08:49] LABS: Slide Review 1 YES
--- NOTE | 2020-07-17 09:47 | XRAY ---
Indication: Abdomen pain and diarrhea. Status post ERCP 2 days ago. History of pancreatitis. Multiple contiguous axial images obtained through the abdomen and pelvis without contrast as ordered. Comparison: November 20, 2019. Lung bases demonstrates new small bibasilar effusions with dependent atelectasis and tiny pericardial effusion/thickening Noncontrasted stomach and bowel loops appear nonobstructed. Normal appendix. New prominent pancreatic head with minimal peripancreatic stranding favoring acute pancreatitis. There is small free fluid in the pelvis and tiny fluid in the colic gutters. No walled off fluid collection or free air. Remaining liver, gallbladder, spleen, adrenal glands, kidneys, ureters, bladder, uterus, and aorta appear unremarkable for noncontrast exam. Osseous structures intact. Impression: 1. New CT findings favoring acute pancreatitis with free fluid. No walled off fluid collection or free air on this noncontrast exam. 2. New small bibasilar effusions/atelectasis and new tiny pericardial effusion. Comment: Preliminary interpretation was made by [facility]. No critical discrepancy.
[2020-07-17] MEDS: Sodium Chloride 0.9% 1000 ML 1,000 ML IV SCH ×3 (10:27→23:40)
[2020-07-17] MEDS: Pepcid 20 MG VIAL IV SCH (11:10)
[2020-07-17] MEDS: Hydromorphone 1 mg/ml Injection IV PRN ×3 (12:11→23:42)
[2020-07-17] MEDS ORDERED: PROVENTIL 2.5 MG/3 ML NEB IH PRN (14:19)
[2020-07-17] MEDS: PROVENTIL 2.5 MG/3 ML NEB IH SCH ×3 (14:24→19:51)
[2020-07-17] MEDS ORDERED: xanAX 0.25 MG PO PRN (14:39)
[2020-07-17 16:10] LABS: Appearance CLEAR (CLEAR); Bilirubin NEGATIVE (NEGATIVE); Blood SMALL Ery/ul (0-5); Epithelial Cells RARE /HPF (FEW); Glucose NEGATIVE (NEGATIVE); Ketones NEGATIVE (NEGATIVE); Leukocyte Esterase NEGATIVE (NEGATIVE); Mucus SLIGHT /HPF (NEGATIVE); Nitrite NEGATIVE (NEGATIVE); Protein,Urine Dip NEGATIVE (Negative); Specific Gravity 1.009 (1.005-1.025); Urobilinogen NEGATIVE mg/dL (0-1)
--- NOTE | 2020-07-17 16:30 | PCM.HP ---
History of Present Illness - Chief Complaint Chief Complaint: abdominal pain for 2 days History of Present Illness: is a 20 year old white female has a history of recurrent pancreatitis and ovarian cyst. She has history of borderline personality disorder as well as PTSD, peptic ulcer disease and migraine headaches. Patient underwent an ERCP with what of appears to be by her history, papillotomy or sphincterotomy. This was performed 2 days ago. Patient states that ever since the procedure she has had significant left side abdominal pain which radiates into her back. She has had nausea. She has had no vomiting today but she did have vomiting yesterday. Patient states that she has been taking oxycodone and that medicine is not relieving her pain. Her last dose of oxycodone was approximately an hour and a half prior to arrival to this emergency department. 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 - Review of Systems Constitutional: No Fever, No Chills Eyes: No Symptoms Ears, Nose, & Throat: No Symptoms Respiratory: No Cough, No Short Of Breath Cardiac: No Chest Pain, No Edema, No Syncope Abdominal/Gastrointestinal: Abdominal Pain, Nausea, Vomiting, No Diarrhea Genitourinary Symptoms: No Dysuria Musculoskeletal: No Back Pain, No Neck Pain Skin: No Rash Neurological: No Dizziness, No Focal Weakness, No Sensory Changes Psychological: No Symptoms Endocrine: No Symptoms Hematologic/Lymphatic: No Symptoms Immunological/Allergic: No Symptoms Medications & Allergies Home Medications: Home Medication List Metoprolol Succinate 25 mg Xl* [Toprol-Xl 25MG Tablets] 2 tab PO BID 03/07/19 [History Confirmed 07/17/20] Albuterol 8 gm Mdi Hfa [Ventolin Hfa MDI] 2 puff NEB QID 11/20/19 [History Confirmed 07/17/20] Alprazolam [Xanax] 0.25 mg PO DAILY PRN PRN 07/17/20 [History Confirmed 07/17/20] Amox Tr/Potass Clav. 500 mg [Augmentin 500-125 Tablet] 1 each PO BID 07/17/20 [History Confirmed 07/17/20] Budesonide/Formoterol Fumarate [Budesonide-Formoterol 80-4.5] 2 puffs IH BID 07/17/20 [History Confirmed 07/17/20] Doxepin HCl 10 mg PO DAILY 07/17/20 [History Confirmed 07/17/20] Loratadine 10 mg [Claritin 10 mg] 10 mg PO DAILY 07/17/20 [History Confirmed 07/17/20] Meloxicam [Mobic] 15 mg PO DAILY 07/17/20 [History Confirmed 07/17/20] Montelukast Sodium 10 mg [Singulair 10 MG] 10 mg PO DAILY 07/17/20 [History Confirmed 07/17/20] Norethindrone 0.35 mg PO DAILY 07/17/20 [History Confirmed 07/17/20] Oxycodone HCl/Acetaminophen [Percocet 5-325 mg Tablet] 1 each PO Q8HPRN PRN 07/17/20 [History Confirmed 07/17/20] PARoxetine HCl [Paxil] 10 mg PO QHS 07/17/20 [History Confirmed 07/17/20] Ropinirole HCl [Requip] 1 mg PO QHS 07/17/20 [History Confirmed 07/17/20] dilTIAZem HCL [Diltiazem HCl] 15 mg PO BID 07/17/20 [History Confirmed 07/17/20] Allergies/Adverse Reactions: Allergies Allergy/AdvReac Type Severity Reaction Status Date / Time mirtazapine [From Remeron] Allergy Intermediate Tightness Verified 07/17/20 07:17 of Throat - Past Medical History Past Medical History: Yes Neurological History: Migraines, Other ENT History: No Pertinent History Cardiac History: No Pertinent History, Other Respiratory History: Asthma Endocrine Medical History: No Pertinent History Musculoskelatal History: No Pertinent History, Fractures GI Medical History: Pancreatitis, Ulcer, Other History: No Pertinent History Pyscho-Social History: Anxiety, Bipolar, Depression, Other Reproductive Disorders: No Pertinent History, Other Comment: Murmur and rapid heart rate. R foot fx currently; pt does not recall specific bone. Bone disease, unknown. Vertigo. Ovarian cysts. PTSD, and borderline personality disorder - Female History Hx Last Menstrual Period: July 04, 2020 Are you now?: No - Past Surgical History Past Surgical History: Yes Neuro Surgical History: No Pertinent History Cardiac History: No Pertinent History Respiratory Surgery: No Pertinent History GI Surgical History: Other Genitourinary Surgical Hx: No Pertinent History Musculskeletal Surgical Hx: Orthopedic Surgery Female Surgical History: No Pertinent History Other Surgical History: egd and colonoscopy - Social History Smoking Status: Never smoker Exposure to second hand smoke: Yes Alcohol: None Drug Use: none - Physical Exam Vital Signs: Vital Signs - 24 hr Temp Pulse Resp BP Pulse Ox 07/17/20 14:44 103 H 16 95 07/17/20 12:00 96.2 F 104 H 18 135/73 98 07/17/20 10:35 96.2 F 104 H 18 135/73 98 07/17/20 09:07 98.4 F 101 H 20 119/80 97 07/17/20 07:19 99.2 F 119 H 18 137/77 98 General Appearance: no apparent distress, alert Neurologic Exam: alert, 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, cooperative, normal mood/affect, nml cerebellar function, nml station & gait, sensation nml, No motor deficits Eye Exam: PERRL/EOMI, eyes nml inspection Ears, Nose, Throat Exam: normal ENT inspection, TMs normal, pharynx normal, moist mucous membranes Neck Exam: normal inspection, non-tender, supple, full range of motion Respiratory Exam: normal breath sounds, lungs clear, No respiratory distress Cardiovascular Exam: regular rate/rhythm, normal heart sounds, normal peripheral pulses Gastrointestinal/Abdomen Exam: soft, normal bowel sounds, tenderness, No mass Back Exam: normal inspection, normal range of motion, No CVA tenderness, No vertebral tenderness Extremity Exam: normal inspection, normal range of motion, pelvis stable Skin Exam: normal color, warm, dry, No rash Lymphatic Exam: No adenopathy Results - Labs Lab/Micro Results: Lab Results-Last 24 Hours 07/17/20 07/17/20 07/17/20 Range/Units 07:49 07:55 07:55 WBC 19.5 H (4.0-10.5) K/mm3 RBC 4.60 (4.1-5.4) M/mm3 Hgb 11.7 L (12.0-16.0) gm/dl Hct 37.9 (35-47) % MCV 82.4 (78-100) fl MCH 25.4 L (26-32) pg MCHC 30.9 L (32-36) g/dl RDW 17.8 H (11.5-14.0) % Plt Count 275 (150-450) K/mm3 MPV 11.2 H (7.5-11.0) fl Gran % 82.6 H (36.0-66.0) % Eos # (Auto) 0 (0-0.5) Absolute Lymphs (auto) 1.70 (1.0-4.6) Absolute Monos (auto) 1.67 H (0.0-1.3) Lymphocytes % 8.7 L (24.0-44.0) % Monocytes % 8.6 (0.0-12.0) % Eosinophils % 0.0 (0.00-5.0) % Basophils % 0.1 (0.0-0.4) % Absolute Granulocytes 16.09 H (1.4-6.9) Basophils # 0.01 (0-0.4) Sodium (137-145) mmol/L Potassium (3.5-5.1) mmol/L Chloride (98-107) mmol/L Carbon Dioxide (22-30) mmol/L Anion Gap (5-15) MEQ/L BUN (7-17) mg/dL Creatinine (0.52-1.04) mg/dL Estimated GFR ML/MIN Glucose (74-106) mg/dL Lactic Acid 1.3 (0.4-2.0) Calcium (8.4-10.2) mg/dL Total Bilirubin (0.2-1.3) mg/dL AST (14-36) U/L ALT (0-35) U/L Alkaline Phosphatase (38-126) U/L Serum Total Protein (6.3-8.2) g/dL Albumin (3.5-5.0) g/dL Amylase (30-110) U/L Lipase (23-300) U/L Urine Color (YELLOW) Urine Appearance (CLEAR) Urine pH (5-6) Ur Specific [place] (1.005-1.025) Urine Protein (Negative) Urine Ketones (NEGATIVE) Urine Blood (0-5) Star/ul Urine Nitrite (NEGATIVE) Urine Bilirubin (NEGATIVE) Urine Urobilinogen (0-1) mg/dL Ur Leukocyte Esterase (NEGATIVE) Urine WBC (Auto) (0-5) /HPF Urine RBC (Auto) (0-2) /HPF U Epithel Cells (Auto) (FEW) /HPF Urine Bacteria (Auto) (NEGATIVE) /HPF Urine Mucus (Auto) (NEGATIVE) /HPF Urine Culture Reflexed (NO) Urine Glucose (NEGATIVE) mg/dL Urine Opiates Level POSITIVE (NEGATIVE) Ur Methadone NEGATIVE (NEGATIVE) Urine Barbiturates NEGATIVE (NEGATIVE) Ur Phencyclidine (PCP) NEGATIVE (NEGATIVE) Urine Amphetamine NEGATIVE (NEGATIVE) U Benzodiazepine Level NEGATIVE (NEGATIVE) Urine Cocaine NEGATIVE (NEGATIVE) Urine Marijuana (THC) NEGATIVE (NEGATIVE) Slides for Path Review YES 07/17/20 07/17/20 Range/Units 07:55 15:56 WBC (4.0-10.5) K/mm3 RBC (4.1-5.4) M/mm3 Hgb (12.0-16.0) gm/dl Hct (35-47) % MCV (78-100) fl MCH (26-32) pg MCHC (32-36) g/dl RDW (11.5-14.0) % Plt Count (150-450) K/mm3 MPV (7.5-11.0) fl Gran % (36.0-66.0) % Eos # (Auto) (0-0.5) Absolute Lymphs (auto) (1.0-4.6) Absolute Monos (auto) (0.0-1.3) Lymphocytes % (24.0-44.0) % Monocytes % (0.0-12.0) % Eosinophils % (0.00-5.0) % Basophils % (0.0-0.4) % Absolute Granulocytes (1.4-6.9) Basophils # (0-0.4) Sodium 134 L (137-145) mmol/L Potassium 3.8 (3.5-5.1) mmol/L Chloride 103 (98-107) mmol/L Carbon Dioxide 24 (22-30) mmol/L Anion Gap 11.6 (5-15) MEQ/L BUN 7 (7-17) mg/dL Creatinine 0.61 (0.52-1.04) mg/dL Estimated GFR > 60.0 ML/MIN Glucose 116 H (74-106) mg/dL Lactic Acid (0.4-2.0) Calcium 9.1 (8.4-10.2) mg/dL Total Bilirubin 0.30 (0.2-1.3) mg/dL AST 21 (14-36) U/L ALT 29 (0-35) U/L Alkaline Phosphatase 102 (38-126) U/L Serum Total Protein 7.4 (6.3-8.2) g/dL Albumin 4.2 (3.5-5.0) g/dL Amylase 782 H (30-110) U/L Lipase 1215 H (23-300) U/L Urine Color STRAW (YELLOW) Urine Appearance CLEAR (CLEAR) Urine pH 7.0 (5-6) Ur Specific [place] 1.009 (1.005-1.025) Urine Protein NEGATIVE (Negative) Urine Ketones NEGATIVE (NEGATIVE) Urine Blood SMALL (0-5) Star/ul Urine Nitrite NEGATIVE (NEGATIVE) Urine Bilirubin NEGATIVE (NEGATIVE) Urine Urobilinogen NEGATIVE (0-1) mg/dL Ur Leukocyte Esterase NEGATIVE (NEGATIVE) Urine WBC (Auto) NONE (0-5) /HPF Urine RBC (Auto) NONE (0-2) /HPF U Epithel Cells (Auto) RARE (FEW) /HPF Urine Bacteria (Auto) NONE (NEGATIVE) /HPF Urine Mucus (Auto) SLIGHT (NEGATIVE) /HPF Urine Culture Reflexed NO (NO) Urine Glucose NEGATIVE (NEGATIVE) mg/dL Urine Opiates Level (NEGATIVE) Ur Methadone (NEGATIVE) Urine Barbiturates (NEGATIVE) Ur Phencyclidine (PCP) (NEGATIVE) Urine Amphetamine (NEGATIVE) U Benzodiazepine Level (NEGATIVE) Urine Cocaine (NEGATIVE) Urine Marijuana (THC) (NEGATIVE) Slides for Path Review - Radiology Impressions Radiology Exams & Impressions: Radiology Procedures Category Date Time Status ABDOMEN AND PELVIS W/0 CONTRAS [CT] Stat Exams 07/17/20 07:50 Completed - Other Procedures and Tests Respiratory Therapy 07/17/20 13:25 Respiratory Therapy Assessment DAILY Assessment/Plan (1) Post-ERCP acute pancreatitis Current Visit: Yes Status: Acute Assessment & Plan: Chief Complaint Diagnosis Post ERCP acute pancreatitis Allergies Allergy/AdvReac Type Severity Reaction Status Date / Time mirtazapine [From Remeron] Allergy Intermediate Tightness Verified 07/17/20 07:17 of Throat Vital Signs (Last 24 hours) Temp Pulse Resp BP Pulse Ox 07/17/20 14:44 103 H 16 95 07/17/20 12:00 96.2 F 104 H 18 135/73 98 07/17/20 10:35 96.2 F 104 H 18 135/73 98 07/17/20 09:07 98.4 F 101 H 20 119/80 97 07/17/20 07:19 99.2 F 119 H 18 137/77 98 Home Medications Medication Instructions Recorded Confirmed Last Taken Type Alprazolam [Xanax] 0.25 mg PO DAILY PRN PRN 07/17/20 07/17/20 Unknown History Amox Tr/Potass Clav. 500 mg 1 each PO BID 07/17/20 07/17/20 Unknown History [Augmentin 500-125 Tablet] Budesonide/Formoterol Fumarate 2 puffs IH BID 07/17/20 07/17/20 Unknown History [Budesonide-Formoterol 80-4.5] Doxepin HCl 10 mg PO DAILY 07/17/20 07/17/20 Unknown History Loratadine 10 mg [Claritin 10 10 mg PO DAILY 07/17/20 07/17/20 Unknown History mg] Meloxicam [Mobic] 15 mg PO DAILY 07/17/20 07/17/20 Unknown History Montelukast Sodium 10 mg 10 mg PO DAILY 07/17/20 07/17/20 Unknown History [Singulair 10 MG] Norethindrone 0.35 mg PO DAILY 07/17/20 07/17/20 Unknown History Oxycodone HCl/Acetaminophen 1 each PO Q8HPRN PRN 07/17/20 07/17/20 Unknown History [Percocet 5-325 mg Tablet] PARoxetine HCl [Paxil] 10 mg PO QHS 07/17/20 07/17/20 Unknown History Ropinirole HCl [Requip] 1 mg PO QHS 07/17/20 07/17/20 Unknown History dilTIAZem HCL [Diltiazem HCl] 15 mg PO BID 07/17/20 07/17/20 Unknown History Current Medications Generic Name Dose Route Start Last Admin Trade Name Freq PRN Reason Stop Dose Admin Albuterol Sulfate 2.5 mg 07/17/20 19:00 07/17/20 14:24 Proventil 2.5 Mg/3 Ml Neb IH 08/16/20 18:59 2.5 mg BIDRT SUSY Administration Albuterol Sulfate 2.5 mg 07/17/20 14:19 Proventil 2.5 Mg/3 Ml Neb IH 08/16/20 14:18 Q4H PRN PRN SHORTNESS OF BREATH/WHEEZING Alprazolam 0.25 mg 07/17/20 14:39 Xanax 0.25 Mg PO 08/16/20 14:38 DAILY PRN PRN ANXIETY Amoxicillin/Clavulanate Potassium 500 mg 07/17/20 22:00 Augmentin 500-125 Tablet PO 08/16/20 21:59 BID SUSY Diltiazem HCl 15 mg 07/17/20 15:00 Cardizem 30 Mg PO 08/16/20 14:59 BID SUSY Famotidine 40 mg 07/17/20 10:00 07/17/20 11:10 Pepcid 20 Mg Vial IV 08/16/20 09:59 40 mg DAILY SUSY Administration Hydromorphone HCl 1 mg 07/17/20 10:11 07/17/20 12:11 Hydromorphone 1 Mg/Ml Injection IV 07/22/20 10:10 1 mg Q4H PRN PRN Administration PAIN Sodium Chloride 1,000 mls @ 150 mls/hr 07/17/20 10:11 07/17/20 10:27 Sodium Chloride 0.9% 1000 Ml IV 08/16/20 10:10 150 mls/hr .Q6H40M SUSY Administration Loratadine 10 mg 07/17/20 15:00 Claritin 10 Mg PO 08/16/20 14:59 DAILY SUSY Meloxicam 15 mg 07/17/20 15:00 Meloxicam PO 08/16/20 14:59 DAILY SUSY Metoprolol Succinate 25 mg 07/17/20 15:00 Toprol-Xl 25mg Tablets PO 08/16/20 14:59 BID [facility] Miscellaneous Information 1 each 07/18/20 10:00 Medication Intervention PO 08/17/20 09:59 DAILY SUSY Montelukast Sodium 10 mg 07/17/20 15:00 Singulair 10 Mg PO 08/16/20 14:59 DAILY [facility] Ondansetron HCl 4 mg 07/17/20 10:11 Zofran 4 Mg/2 Ml Vial IV 08/16/20 10:10 Q6H PRN PRN NAUSEA/VOMITING Oxycodone/Acetaminophen 1 tab 07/17/20 14:39 Percocet Tablet 5/325mg PO 07/22/20 14:38 Q8HPRN PRN PAIN Paroxetine HCl 10 mg 07/17/20 22:00 Paxil 20 Mg PO 08/16/20 21:59 QHS [facility] Patient Own Med: 1 each 07/18/20 10:00 Norethindrone 0.35 BC 08/17/20 09:59 Mg Tablet DAILY SUSY Ropinirole HCl 1 mg 07/17/20 22:00 Requip 0.5 Mg PO 08/16/20 21:59 QHS [facility] Fluticasone/Salmeterol 2 puff 07/17/20 19:00 Advair Hfa 115 Common Canister* IH 08/16/20 18:59 BIDRT SUSY Discontinued Medications Generic Name Dose Route Start Last Admin Trade Name Freq PRN Reason Stop Dose Admin Hydromorphone HCl 1 mg 07/17/20 07:49 07/17/20 07:57 Hydromorphone 1 Mg/Ml Injection IV 07/17/20 07:50 1 mg STAT ONE Administration Hydromorphone HCl Confirm 07/17/20 07:56 Hydromorphone 1 Mg/Ml Injection Administered 07/17/20 07:57 Dose 1 mg .ROUTE .STK-MED ONE Sodium Chloride 1,000 mls @ 999 mls/hr 07/17/20 07:49 07/17/20 09:05 Sodium Chloride 0.9% 1000 Ml IV 07/17/20 08:49 Infused .Q1H1M STA Infusion Sodium Chloride Confirm 07/17/20 07:56 Sodium Chloride 0.9% 1000 Ml Administered 07/17/20 07:57 Dose 1,000 mls @ ud .ROUTE .STK-MED ONE Ondansetron HCl 4 mg 07/17/20 07:49 07/17/20 07:57 Zofran 4 Mg/2 Ml Vial IV 07/17/20 07:50 4 mg STAT ONE Administration Ondansetron HCl Confirm 07/17/20 07:56 Zofran 4 Mg/2 Ml Vial Administered 07/17/20 07:57 Dose 4 mg .ROUTE .STK-MED ONE Intake & Output (Last 24 hours) 07/15/20 07/16/20 07/17/20 07/18/20 11:59 11:59 11:59 11:59 Intake Total 0 Balance 0 Weight 72 kg Laboratory Results (Last 24 hours) 07/17/20 07/17/20 07/17/20 15:56 07:55 07:55 WBC 19.5 H RBC 4.60 Hgb 11.7 L Hct 37.9 MCV 82.4 MCH 25.4 L MCHC 30.9 L RDW 17.8 H Plt Count 275 MPV 11.2 H Gran % 82.6 H Eos # (Auto) 0 Absolute Lymphs (auto) 1.70 Absolute Monos (auto) 1.67 H Lymphocytes % 8.7 L Monocytes % 8.6 Eosinophils % 0.0 Basophils % 0.1 Absolute Granulocytes 16.09 H Basophils # 0.01 Sodium 134 L Potassium 3.8 Chloride 103 Carbon Dioxide 24 Anion Gap 11.6 BUN 7 Creatinine 0.61 Estimated GFR > 60.0 Glucose 116 H Lactic Acid Calcium 9.1 Total Bilirubin 0.30 AST 21 ALT 29 Alkaline Phosphatase 102 Serum Total Protein 7.4 Albumin 4.2 Amylase 782 H Lipase 1215 H Urine Color STRAW Urine Appearance CLEAR Urine pH 7.0 Ur Specific [place] 1.009 Urine Protein NEGATIVE Urine Ketones NEGATIVE Urine Blood SMALL Urine Nitrite NEGATIVE Urine Bilirubin NEGATIVE Urine Urobilinogen NEGATIVE Ur Leukocyte Esterase NEGATIVE Urine WBC (Auto) NONE Urine RBC (Auto) NONE U Epithel Cells (Auto) RARE Urine Bacteria (Auto) NONE Urine Mucus (Auto) SLIGHT Urine Culture Reflexed NO Urine Glucose NEGATIVE Urine Opiates Level Ur Methadone Urine Barbiturates Ur Phencyclidine (PCP) Urine Amphetamine U Benzodiazepine Level Urine Cocaine Urine Marijuana (THC) Slides for Path Review YES 07/17/20 07/17/20 07:55 07:49 WBC RBC Hgb Hct MCV MCH MCHC RDW Plt Count MPV Gran % Eos # (Auto) Absolute Lymphs (auto) Absolute Monos (auto) Lymphocytes % Monocytes % Eosinophils % Basophils % Absolute Granulocytes Basophils # Sodium Potassium Chloride Carbon Dioxide Anion Gap BUN Creatinine Estimated GFR Glucose Lactic Acid 1.3 Calcium Total Bilirubin AST ALT Alkaline Phosphatase Serum Total Protein Albumin Amylase Lipase Urine Color Urine Appearance Urine pH Ur Specific [place] Urine Protein Urine Ketones Urine Blood Urine Nitrite Urine Bilirubin Urine Urobilinogen Ur Leukocyte Esterase Urine WBC (Auto) Urine RBC (Auto) U Epithel Cells (Auto) Urine Bacteria (Auto) Urine Mucus (Auto) Urine Culture Reflexed Urine Glucose Urine Opiates Level POSITIVE Ur Methadone NEGATIVE Urine Barbiturates NEGATIVE Ur Phencyclidine (PCP) NEGATIVE Urine Amphetamine NEGATIVE U Benzodiazepine Level NEGATIVE Urine Cocaine NEGATIVE Urine Marijuana (THC) NEGATIVE Slides for Path Review Orders (Last 24 hours) Category Date Time Status Up With Assistance TID Activity 07/17/20 10:11 Active Clean Catch Urine Specimen STAT Care 07/17/20 07:49 Completed Code Status Order ROUTINE Care 07/17/20 10:11 Active IV Insertion STAT Care 07/17/20 07:[address] in Observation ROUTINE Care 07/17/20 10:11 Active Weight,Daily 0600 Care 07/17/20 10:11 Active Temperature Control Inspector/Discharge Plan ROUTINE Cons 07/17/20 11:04 Active Clear Liquid Diet 07/17/20 Dinner Active NPO except Meds Diet 07/17/20 10:12 Completed ABDOMEN AND PELVIS W/0 CONTRAS [CT] Stat Exams 07/17/20 07:50 Completed AMYLASE Stat Lab 07/17/20 07:55 Completed AMYLASE Stat Lab 07/18/20 05:00 Ordered CBC W DIFF AM.LAB Lab 07/18/20 04:00 Ordered CBC W DIFF Stat Lab 07/17/20 07:55 Completed CMP AM.LAB Lab 07/18/20 04:00 Ordered CMP Stat Lab 07/17/20 07:55 Completed LIPASE Stat Lab 07/17/20 07:55 Completed LIPASE Stat Lab 07/18/20 05:00 Ordered Lactic Acid Stat Lab 07/17/20 07:49 Completed UA W/RFX UR CULTURE Routine Lab 07/17/20 15:56 Completed Urine Triage Profile Stat Lab 07/17/20 07:55 Completed Albuterol 2.5 mg/3 ml Neb [Proventil 2.5 mg/3 ml Neb Med 07/17/20 19:00 Active ] 2.5 mg IH BIDRT Albuterol 2.5 mg/3 ml Neb [Proventil 2.5 mg/3 ml Neb Med 07/17/20 14:19 Active ] 2.5 mg IH Q4H PRN PRN Alprazolam 0.25 mg [xanAX 0.25 MG] Med 07/17/20 14:39 Active 0.25 mg PO DAILY PRN PRN Amox Tr/Potass Clav. 500 mg [Augmentin 500-125 Med 07/17/20 22:00 Active Tablet] 500 mg PO BID Diltiazem HCl 30 mg [Cardizem 30 MG] Med 07/17/20 15:00 Active 15 mg PO BID Famotidine 20 mg Vial [Pepcid 20 MG VIAL] Med 07/17/20 10:00 Active 40 mg IV DAILY Fluticasone/Salmeterol [Advair Hfa Common Med 07/17/20 19:00 Active canister*] 2 puff IH BIDRT Hydromorphone 1 mg/1Ml Inj [Hydromorphone 1 mg/ml Med 07/17/20 07:56 Discontinued Injection] 1 mg .ROUTE .STK-MED ONE Hydromorphone 1 mg/1Ml Inj [Hydromorphone 1 mg/ml Med 07/17/20 10:11 Active Injection] 1 mg IV Q4H PRN PRN Hydromorphone 1 mg/1Ml Inj [Hydromorphone 1 mg/ml Med 07/17/20 07:49 Discontinued Injection] 1 mg IV STAT ONE Loratadine 10 mg [Claritin 10 mg] Med 07/17/20 15:00 Active 10 mg PO DAILY Medication Intervention Med 07/18/20 10:00 Active 1 each PO DAILY Meloxicam Med 07/17/20 15:00 Active 15 mg PO DAILY Metoprolol Succinate 25 mg Xl* [Toprol-Xl 25MG Tablets* Med 07/17/20 15:00 Active ] 25 mg PO BID Montelukast Sodium 10 mg [Singulair 10 MG] Med 07/17/20 15:00 Active 10 mg PO DAILY NaCl 0.9% 1000 ml [Sodium Chloride 0.9% 1000 ML] 1,000 Med 07/17/20 07:56 Discontinued ml .ROUTE UD NaCl 0.9% 1000 ml [Sodium Chloride 0.9% 1000 ML] 1,000 Med 07/17/20 10:11 Active ml IV 150 mls/hr NaCl 0.9% 1000 ml [Sodium Chloride 0.9% 1000 ML] 1,000 Med 07/17/20 07:49 Discontinued ml IV 999 mls/hr Ondansetron HCl 4 mg/2 ml [Zofran 4 MG/2 ML VIAL] Med 07/17/20 07:56 Discontinued 4 mg .ROUTE .STK-MED ONE Ondansetron HCl 4 mg/2 ml [Zofran 4 MG/2 ML VIAL] Med 07/17/20 10:11 Active 4 mg IV Q6H PRN PRN Ondansetron HCl 4 mg/2 ml [Zofran 4 MG/2 ML VIAL] Med 07/17/20 07:49 Discontinued 4 mg IV STAT ONE Oxycodone/APAP 5 mg/325 mg [Percocet Tablet 5/325Mg Med 07/17/20 14:39 Active *] 1 tab PO Q8HPRN PRN Paroxetine HCl 20 mg [Paxil 20 MG] Med 07/17/20 22:00 Active 10 mg PO QHS Patient Own Med [Patient Own Medication] Med 07/18/20 10:00 Active 1 each BC DAILY Ropinirole HCl 0.5 mg [Requip 0.5 MG] Med 07/17/20 22:00 Active 1 mg PO QHS OT Screen per Nursing Assess ONCE OT 07/17/20 11:04 Active PT Screen per Nursing Assess ONCE PT 07/17/20 11:04 Active Pulse Oximetry .spot check RT 07/17/20 13:26 Active RT Screen per Nursing Assess ONCE RT 07/17/20 11:04 Completed Respiratory Therapy Assessment DAILY RT 07/17/20 13:25 Active Transfer Order Routine Transfer 07/17/20 Completed Patient Care Notes (Last 24 hours) 07/17/20 14:57 Nursing Note by Mikey Edgar ROUNDED WITH DR LOPEZ, NEW ORDER FOR CL DIET, AND UA Initialized on 07/17/20 14:57 - END OF NOTE Code(s): K91.89 - OTH POSTPROCEDURAL COMPLICATIONS AND DISORDERS OF DGSTV SYS; K85.90 - ACUTE PANCREATITIS WITHOUT NECROSIS OR INFECTION, UNSP (2) Abdominal pain Current Visit: No Status: Acute Onset Date: ~04/07/18 Code(s): R10.9 - UNSPECIFIED ABDOMINAL PAIN
[2020-07-17] MEDS: Zofran 4 MG/2 ML VIAL IV PRN ×2 (16:36→23:42)
[2020-07-17] MEDS: MELOXICAM PO SCH (16:43)
[2020-07-17] MEDS: CLARITIN 10 MG PO SCH (16:45)
[2020-07-17] MEDS: Singulair 10 MG PO SCH (16:45)
[2020-07-17] MEDS: Toprol-Xl 25MG Tablets PO SCH ×2 (16:45→20:34)
[2020-07-17] MEDS: Cardizem 30 MG PO SCH ×2 (16:45→20:32)
[2020-07-17] MEDS: Advair Hfa 115/21 Common canister IH SCH (19:50)
[2020-07-17] MEDS: Paxil 20 MG PO SCH (20:33)
[2020-07-17] MEDS: Requip 0.5 MG PO SCH (20:34)
[2020-07-17] MEDS: PERCOCET TABLET 5/325MG PO PRN (20:34)
[2020-07-17] MEDS ORDERED: FORMOTEROL FUMARATE IH SCH (22:00)
[2020-07-17] MEDS ORDERED: Augmentin 500-125 Tablet PO SCH ×2 (22:00)
[2020-07-17] MEDS ORDERED: NON-FORMULARY ITEM (Ropinirole Hcl [Requip] 1 MG) PO SCH (22:00)
[2020-07-17] MEDS ORDERED: [UNRECOGNIZED DRUG - OTHER] IH SCH (22:00)
[2020-07-17] MEDS ORDERED: BUDESONIDE IH SCH (22:00)
[2020-07-18] MEDS: Sodium Chloride 0.9% 1000 ML 1,000 ML IV SCH ×3 (05:37→19:26)
[2020-07-18] MEDS: PERCOCET TABLET 5/325MG PO PRN (05:49)
[2020-07-18 07:21] LABS: Absolute Neutrophil Ct (ANC) 17.86 (1.4-6.9); Basophil (Absolute #) 0 (0-0.4); Eosinophil (Absolute #) 0 (0-0.5); Hemoglobin 10.4 gm/dl (12.0-16.0); Lymphocyte (Absolute #) 1.12 (1.0-4.6); Lymphocytes % 5.4 % (24.0-44.0); Mean Cell Volume 83.5 fl (78-100); Mean Corpuscular Hemoglobin 25.6 pg (26-32); Mean Corpuscular Hgb Concent. 30.6 g/dl (32-36); Mean Platelet Volume 10.8 fl (7.5-11.0); Monocyte (Absolute #) 1.87 (0.0-1.3); Neutrophil % 85.6 % (36.0-66.0); Platelet Count 258 K/mm3 (150-450); Red Blood Count 4.07 M/mm3 (4.1-5.4); Red Cell Distribution Width 18.2 % (11.5-14.0); White Blood Count 20.9 K/mm3 (4.0-10.5)
[2020-07-18 07:26] LABS: AMYLASE 145 U/L (30-110); LIPASE 72 U/L (23-300)
[2020-07-18 07:31] LABS: ALKALINE PHOSPHATASE 76 U/L (38-126); ANION GAP 12.5 MEQ/L (5-15); BLOOD UREA NITROGEN 5 mg/dL (7-17); CHLORIDE 104 mmol/L (98-107); Calcium 8.2 mg/dL (8.4-10.2); Carbon Dioxide 22 mmol/L (22-30); Creatinine 1 0.52 mg/dL (0.52-1.04); EST GLOMERULAR FILTRATION RATE > 60.0 ML/MIN; Glucose 112 mg/dL (74-106); SGOT/AST 14 U/L (14-36); SGPT/ALT 19 U/L (0-35); SODIUM 135 mmol/L (137-145); Total Protein 5.9 g/dL (6.3-8.2)
[2020-07-18] MEDS: Advair Hfa 115/21 Common canister IH SCH ×2 (07:43→19:54)
[2020-07-18] MEDS: PROVENTIL 2.5 MG/3 ML NEB IH SCH ×2 (07:43→19:51)
--- NOTE | 2020-07-18 08:05 | PCM.NOTE ---
Date and Time: 07/18/20 08 Subjective Assessment: Still complaining of abdominal pain nausea and loss of appetite. Was able to tolerate clear liquid yesterday. - Review of Systems Constitutional: No Fever, No Chills Eyes: No Symptoms Ears, Nose, & Throat: No Symptoms Respiratory: No Cough, No Short Of Breath Cardiac: No Chest Pain, No Edema, No Syncope Abdominal/Gastrointestinal: Abdominal Pain, Nausea, No Vomiting, No Diarrhea Genitourinary Symptoms: No Dysuria Musculoskeletal: No Back Pain, No Neck Pain Skin: No Rash Neurological: No Dizziness, No Focal Weakness, No Sensory Changes Psychological: No Symptoms Endocrine: No Symptoms Hematologic/Lymphatic: No Symptoms Immunological/Allergic: No Symptoms Objective Exam General Appearance: no apparent distress, alert Neurologic Exam: alert, 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, cooperative, normal mood/affect, nml cerebellar function, sensation nml, No motor deficits Skin Exam: normal color, warm, dry Eye Exam: PERRL, EOMI, eyes nml inspection Ears, Nose, Throat Exam: normal ENT inspection, pharynx normal, moist mucous membranes Neck Exam: normal inspection, non-tender, supple, full range of motion Respiratory Exam: normal breath sounds, lungs clear, No respiratory distress Cardiovascular Exam: regular rate/rhythm, normal heart sounds Gastrointestinal/Abdomen Exam: soft, No tenderness, No mass Extremity Exam: normal inspection, normal range of motion Back Exam: normal inspection, normal range of motion, No CVA tenderness, No vertebral tenderness Pelvic Exam: deferred Rectal Exam: deferred OBJECTIVE DATA Vital Signs: Vital Signs - 24 hr Temp Pulse Resp BP Pulse Ox 07/18/20 07:44 96 H 16 93 L 07/18/20 07:18 98.4 F 90 14 106/57 93 L 07/18/20 04:00 98.6 F 94 H 18 116/59 93 L 07/18/20 00:00 97.8 F 106 H 14 106/53 95 07/17/20 20:00 99.8 F 128 H 16 127/72 95 07/17/20 19:51 112 H 20 95 07/17/20 16:00 99.6 F 121 H 16 132/74 97 07/17/20 14:44 103 H 16 95 07/17/20 12:00 96.2 F 104 H 18 135/73 98 07/17/20 10:35 96.2 F 104 H 18 135/73 98 07/17/20 09:07 98.4 F 101 H 20 119/80 97 Pain Assessment - Last Documented Pain Intensity 5 Pain Scale Used [facility] Intake and Output: Intake & Output 07/15/20 07/16/20 07/17/20 07/18/20 11:59 11:59 11:59 11:59 Intake Total 2821 Output Total 400 Balance 2421 Weight 72 kg 72.5 kg Lab Results: Lab Results-Last 24 Hours 07/17/20 07/17/20 07/17/20 Range/Units 07:49 07:55 07:55 WBC 19.5 H (4.0-10.5) K/mm3 RBC 4.60 (4.1-5.4) M/mm3 Hgb 11.7 L (12.0-16.0) gm/dl Hct 37.9 (35-47) % MCV 82.4 (78-100) fl MCH 25.4 L (26-32) pg MCHC 30.9 L (32-36) g/dl RDW 17.8 H (11.5-14.0) % Plt Count 275 (150-450) K/mm3 MPV 11.2 H (7.5-11.0) fl Gran % 82.6 H (36.0-66.0) % Eos # (Auto) 0 (0-0.5) Absolute Lymphs (auto) 1.70 (1.0-4.6) Absolute Monos (auto) 1.67 H (0.0-1.3) Lymphocytes % 8.7 L (24.0-44.0) % Monocytes % 8.6 (0.0-12.0) % Eosinophils % 0.0 (0.00-5.0) % Basophils % 0.1 (0.0-0.4) % Absolute Granulocytes 16.09 H (1.4-6.9) Basophils # 0.01 (0-0.4) Sodium (137-145) mmol/L Potassium (3.5-5.1) mmol/L Chloride (98-107) mmol/L Carbon Dioxide (22-30) mmol/L Anion Gap (5-15) MEQ/L BUN (7-17) mg/dL Creatinine (0.52-1.04) mg/dL Estimated GFR ML/MIN Glucose (74-106) mg/dL Lactic Acid 1.3 (0.4-2.0) Calcium (8.4-10.2) mg/dL Total Bilirubin (0.2-1.3) mg/dL AST (14-36) U/L ALT (0-35) U/L Alkaline Phosphatase (38-126) U/L Serum Total Protein (6.3-8.2) g/dL Albumin (3.5-5.0) g/dL Amylase (30-110) U/L Lipase (23-300) U/L Urine Color (YELLOW) Urine Appearance (CLEAR) Urine pH (5-6) Ur Specific [place] (1.005-1.025) Urine Protein (Negative) Urine Ketones (NEGATIVE) Urine Blood (0-5) Star/ul Urine Nitrite (NEGATIVE) Urine Bilirubin (NEGATIVE) Urine Urobilinogen (0-1) mg/dL Ur Leukocyte Esterase (NEGATIVE) Urine WBC (Auto) (0-5) /HPF Urine RBC (Auto) (0-2) /HPF U Epithel Cells (Auto) (FEW) /HPF Urine Bacteria (Auto) (NEGATIVE) /HPF Urine Mucus (Auto) (NEGATIVE) /HPF Urine Culture Reflexed (NO) Urine Glucose (NEGATIVE) mg/dL Urine Opiates Level POSITIVE (NEGATIVE) Ur Methadone NEGATIVE (NEGATIVE) Urine Barbiturates NEGATIVE (NEGATIVE) Ur Phencyclidine (PCP) NEGATIVE (NEGATIVE) Urine Amphetamine NEGATIVE (NEGATIVE) U Benzodiazepine Level NEGATIVE (NEGATIVE) Urine Cocaine NEGATIVE (NEGATIVE) Urine Marijuana (THC) NEGATIVE (NEGATIVE) Slides for Path Review YES 07/17/20 07/17/20 07/18/20 Range/Units 07:55 15:56 06:00 WBC 20.9 H (4.0-10.5) K/mm3 RBC 4.07 L (4.1-5.4) M/mm3 Hgb 10.4 L (12.0-16.0) gm/dl Hct 34.0 L (35-47) % MCV 83.5 (78-100) fl MCH 25.6 L (26-32) pg MCHC 30.6 L (32-36) g/dl RDW 18.2 H (11.5-14.0) % Plt Count 258 (150-450) K/mm3 MPV 10.8 (7.5-11.0) fl Gran % 85.6 H (36.0-66.0) % Eos # (Auto) 0 (0-0.5) Absolute Lymphs (auto) 1.12 (1.0-4.6) Absolute Monos (auto) 1.87 H (0.0-1.3) Lymphocytes % 5.4 L (24.0-44.0) % Monocytes % 9.0 (0.0-12.0) % Eosinophils % 0.0 (0.00-5.0) % Basophils % 0.0 (0.0-0.4) % Absolute Granulocytes 17.86 H (1.4-6.9) Basophils # 0 (0-0.4) Sodium 134 L (137-145) mmol/L Potassium 3.8 (3.5-5.1) mmol/L Chloride 103 (98-107) mmol/L Carbon Dioxide 24 (22-30) mmol/L Anion Gap 11.6 (5-15) MEQ/L BUN 7 (7-17) mg/dL Creatinine 0.61 (0.52-1.04) mg/dL Estimated GFR > 60.0 ML/MIN Glucose 116 H (74-106) mg/dL Lactic Acid (0.4-2.0) Calcium 9.1 (8.4-10.2) mg/dL Total Bilirubin 0.30 (0.2-1.3) mg/dL AST 21 (14-36) U/L ALT 29 (0-35) U/L Alkaline Phosphatase 102 (38-126) U/L Serum Total Protein 7.4 (6.3-8.2) g/dL Albumin 4.2 (3.5-5.0) g/dL Amylase 782 H (30-110) U/L Lipase 1215 H (23-300) U/L Urine Color STRAW (YELLOW) Urine Appearance CLEAR (CLEAR) Urine pH 7.0 (5-6) Ur Specific [place] 1.009 (1.005-1.025) Urine Protein NEGATIVE (Negative) Urine Ketones NEGATIVE (NEGATIVE) Urine Blood SMALL (0-5) Star/ul Urine Nitrite NEGATIVE (NEGATIVE) Urine Bilirubin NEGATIVE (NEGATIVE) Urine Urobilinogen NEGATIVE (0-1) mg/dL Ur Leukocyte Esterase NEGATIVE (NEGATIVE) Urine WBC (Auto) NONE (0-5) /HPF Urine RBC (Auto) NONE (0-2) /HPF U Epithel Cells (Auto) RARE (FEW) /HPF Urine Bacteria (Auto) NONE (NEGATIVE) /HPF Urine Mucus (Auto) SLIGHT (NEGATIVE) /HPF Urine Culture Reflexed NO (NO) Urine Glucose NEGATIVE (NEGATIVE) mg/dL Urine Opiates Level (NEGATIVE) Ur Methadone (NEGATIVE) Urine Barbiturates (NEGATIVE) Ur Phencyclidine (PCP) (NEGATIVE) Urine Amphetamine (NEGATIVE) U Benzodiazepine Level (NEGATIVE) Urine Cocaine (NEGATIVE) Urine Marijuana (THC) (NEGATIVE) Slides for Path Review 07/18/20 07/18/20 Range/Units 06:00 06:00 WBC (4.0-10.5) K/mm3 RBC (4.1-5.4) M/mm3 Hgb (12.0-16.0) gm/dl Hct (35-47) % MCV (78-100) fl MCH (26-32) pg MCHC (32-36) g/dl RDW (11.5-14.0) % Plt Count (150-450) K/mm3 MPV (7.5-11.0) fl Gran % (36.0-66.0) % Eos # (Auto) (0-0.5) Absolute Lymphs (auto) (1.0-4.6) Absolute Monos (auto) (0.0-1.3) Lymphocytes % (24.0-44.0) % Monocytes % (0.0-12.0) % Eosinophils % (0.00-5.0) % Basophils % (0.0-0.4) % Absolute Granulocytes (1.4-6.9) Basophils # (0-0.4) Sodium 135 L (137-145) mmol/L Potassium 4.0 (3.5-5.1) mmol/L Chloride 104 (98-107) mmol/L Carbon Dioxide 22 (22-30) mmol/L Anion Gap 12.5 (5-15) MEQ/L BUN 5 L (7-17) mg/dL Creatinine 0.52 (0.52-1.04) mg/dL Estimated GFR > 60.0 ML/MIN Glucose 112 H (74-106) mg/dL Lactic Acid (0.4-2.0) Calcium 8.2 L (8.4-10.2) mg/dL Total Bilirubin 0.60 (0.2-1.3) mg/dL AST 14 (14-36) U/L ALT 19 (0-35) U/L Alkaline Phosphatase 76 (38-126) U/L Serum Total Protein 5.9 L (6.3-8.2) g/dL Albumin 3.0 L (3.5-5.0) g/dL Amylase 145 H (30-110) U/L Lipase 72 (23-300) U/L Urine Color (YELLOW) Urine Appearance (CLEAR) Urine pH (5-6) Ur Specific [place] (1.005-1.025) Urine Protein (Negative) Urine Ketones (NEGATIVE) Urine Blood (0-5) Star/ul Urine Nitrite (NEGATIVE) Urine Bilirubin (NEGATIVE) Urine Urobilinogen (0-1) mg/dL Ur Leukocyte Esterase (NEGATIVE) Urine WBC (Auto) (0-5) /HPF Urine RBC (Auto) (0-2) /HPF U Epithel Cells (Auto) (FEW) /HPF Urine Bacteria (Auto) (NEGATIVE) /HPF Urine Mucus (Auto) (NEGATIVE) /HPF Urine Culture Reflexed (NO) Urine Glucose (NEGATIVE) mg/dL Urine Opiates Level (NEGATIVE) Ur Methadone (NEGATIVE) Urine Barbiturates (NEGATIVE) Ur Phencyclidine (PCP) (NEGATIVE) Urine Amphetamine (NEGATIVE) U Benzodiazepine Level (NEGATIVE) Urine Cocaine (NEGATIVE) Urine Marijuana (THC) (NEGATIVE) Slides for Path Review Radiology Exams: Radiology Procedures Category Date Time Status ABDOMEN AND PELVIS W/0 CONTRAS [CT] Stat Exams 07/17/20 07:50 Completed Assessment/Plan (1) Post-ERCP acute pancreatitis Current Visit: Yes Status: Acute Assessment & Plan: Chief Complaint Diagnosis abdominal pain for 2 days Allergies Allergy/AdvReac Type Severity Reaction Status Date / Time mirtazapine [From Remeron] Allergy Intermediate Tightness Verified 07/17/20 07:17 of Throat Vital Signs (Last 24 hours) Temp Pulse Resp BP Pulse Ox 07/18/20 07:44 96 H 16 93 L 07/18/20 07:18 98.4 F 90 14 106/57 93 L 07/18/20 04:00 98.6 F 94 H 18 116/59 93 L 07/18/20 00:00 97.8 F 106 H 14 106/53 95 07/17/20 20:00 99.8 F 128 H 16 127/72 95 07/17/20 19:51 112 H 20 95 07/17/20 16:00 99.6 F 121 H 16 132/74 97 07/17/20 14:44 103 H 16 95 07/17/20 12:00 96.2 F 104 H 18 135/73 98 07/17/20 10:35 96.2 F 104 H 18 135/73 98 07/17/20 09:07 98.4 F 101 H 20 119/80 97 Home Medications Medication Instructions Recorded Confirmed Last Taken Type Alprazolam [Xanax] 0.25 mg PO DAILY PRN PRN 07/17/20 07/17/20 Unknown History Amox Tr/Potass Clav. 500 mg 1 each PO BID 07/17/20 07/17/20 Unknown History [Augmentin 500-125 Tablet] Budesonide/Formoterol Fumarate 2 puffs IH BID 07/17/20 07/17/20 Unknown History [Budesonide-Formoterol 80-4.5] Doxepin HCl 10 mg PO DAILY 07/17/20 07/17/20 Unknown History Loratadine 10 mg [Claritin 10 10 mg PO DAILY 07/17/20 07/17/20 Unknown History mg] Meloxicam [Mobic] 15 mg PO DAILY 07/17/20 07/17/20 Unknown History Montelukast Sodium 10 mg 10 mg PO DAILY 07/17/20 07/17/20 Unknown History [Singulair 10 MG] Norethindrone 0.35 mg PO DAILY 07/17/20 07/17/20 Unknown History Oxycodone HCl/Acetaminophen 1 each PO Q8HPRN PRN 07/17/20 07/17/20 Unknown History [Percocet 5-325 mg Tablet] PARoxetine HCl [Paxil] 10 mg PO QHS 07/17/20 07/17/20 Unknown History Ropinirole HCl [Requip] 1 mg PO QHS 07/17/20 07/17/20 Unknown History dilTIAZem HCL [Diltiazem HCl] 15 mg PO BID 07/17/20 07/17/20 Unknown History Current Medications Generic Name Dose Route Start Last Admin Trade Name Freq PRN Reason Stop Dose Admin Albuterol Sulfate 2.5 mg 07/17/20 19:00 07/18/20 07:43 Proventil 2.5 Mg/3 Ml Neb IH 08/16/20 18:59 2.5 mg BIDRT SUSY Administration Albuterol Sulfate 2.5 mg 07/17/20 14:19 Proventil 2.5 Mg/3 Ml Neb IH 08/16/20 14:18 Q4H PRN PRN SHORTNESS OF BREATH/WHEEZING Alprazolam 0.25 mg 07/17/20 14:39 Xanax 0.25 Mg PO 08/16/20 14:38 DAILY PRN PRN ANXIETY Diltiazem HCl 15 mg 07/17/20 15:00 07/17/20 20:32 Cardizem 30 Mg PO 08/16/20 14:59 15 mg BID SUSY Administration Famotidine 40 mg 07/17/20 10:00 07/17/20 11:10 Pepcid 20 Mg Vial IV 08/16/20 09:59 40 mg DAILY SUSY Administration Hydromorphone HCl 1 mg 07/17/20 10:11 07/17/20 23:42 Hydromorphone 1 Mg/Ml Injection IV 07/22/20 10:10 1 mg Q4H PRN PRN Administration PAIN Sodium Chloride 1,000 mls @ 150 mls/hr 07/17/20 10:11 07/18/20 05:37 Sodium Chloride 0.9% 1000 Ml IV 08/16/20 10:10 150 mls/hr .Q6H40M SUSY Administration Ceftriaxone Sodium/Dextrose 1 g in 50 mls @ 100 mls/hr 07/18/20 10:00 Rocephin 1 Gm-D5w 50 Ml Bag IV 08/17/20 09:59 Q24H10 SUSY Loratadine 10 mg 07/17/20 15:00 07/17/20 16:45 Claritin 10 Mg PO 08/16/20 14:59 10 mg DAILY SUSY Administration Meloxicam 15 mg 07/17/20 15:00 07/17/20 16:43 Meloxicam PO 08/16/20 14:59 15 mg DAILY SUSY Administration Metoprolol Succinate 25 mg 07/17/20 15:00 07/17/20 20:34 Toprol-Xl 25mg Tablets PO 08/16/20 14:59 25 mg BID SUSY Administration Miscellaneous Information 1 each 07/18/20 10:00 Medication Intervention PO 08/17/20 09:59 DAILY SUSY Montelukast Sodium 10 mg 07/17/20 15:00 07/17/20 16:45 Singulair 10 Mg PO 08/16/20 14:59 10 mg DAILY SUSY Administration Ondansetron HCl 4 mg 07/17/20 10:11 07/17/20 23:42 Zofran 4 Mg/2 Ml Vial IV 08/16/20 10:10 4 mg Q6H PRN PRN Administration NAUSEA/VOMITING Oxycodone/Acetaminophen 1 tab 07/17/20 14:39 07/18/20 05:49 Percocet Tablet 5/325mg PO 07/22/20 14:38 1 tab Q8HPRN PRN Administration PAIN Paroxetine HCl 10 mg 07/17/20 22:00 07/17/20 20:33 Paxil 20 Mg PO 08/16/20 21:59 10 mg QHS SUSY Administration Patient Own Med: 1 each 07/18/20 10:00 Norethindrone 0.35 BC 08/17/20 09:59 Mg Tablet DAILY SUSY Ropinirole HCl 1 mg 07/17/20 22:00 07/17/20 20:34 Requip 0.5 Mg PO 08/16/20 21:59 1 mg QHS SUSY Administration Fluticasone/Salmeterol 2 puff 07/17/20 19:00 07/18/20 07:43 Advair Hfa 115/21 Common Canister* IH 08/16/20 18:59 2 puff BIDRT SUSY Administration Discontinued Medications Generic Name Dose Route Start Last Admin Trade Name Freq PRN Reason Stop Dose Admin Amoxicillin/Clavulanate Potassium 500 mg 07/17/20 22:00 07/17/20 20:32 Augmentin 500-125 Tablet PO 08/16/20 21:59 500 mg BID SUSY Administration Hydromorphone HCl 1 mg 07/17/20 07:49 07/17/20 07:57 Hydromorphone 1 Mg/Ml Injection IV 07/17/20 07:50 1 mg STAT ONE Administration Hydromorphone HCl Confirm 07/17/20 07:56 Hydromorphone 1 Mg/Ml Injection Administered 07/17/20 07:57 Dose 1 mg .ROUTE .STK-MED ONE Sodium Chloride 1,000 mls @ 999 mls/hr 07/17/20 07:49 07/17/20 09:05 Sodium Chloride 0.9% 1000 Ml IV 07/17/20 08:49 Infused .Q1H1M STA Infusion Sodium Chloride Confirm 07/17/20 07:56 Sodium Chloride 0.9% 1000 Ml Administered 07/17/20 07:57 Dose 1,000 mls @ ud .ROUTE .STK-MED ONE Ondansetron HCl 4 mg 07/17/20 07:49 07/17/20 07:57 Zofran 4 Mg/2 Ml Vial IV 07/17/20 07:50 4 mg STAT ONE Administration Ondansetron HCl Confirm 07/17/20 07:56 Zofran 4 Mg/2 Ml Vial Administered 07/17/20 07:57 Dose 4 mg .ROUTE .STK-MED ONE Intake & Output (Last 24 hours) 07/15/20 07/16/20 07/17/20 07/18/20 11:59 11:59 11:59 11:59 Intake Total 2821 Output Total 400 Balance 2421 Weight 72 kg 72.5 kg Laboratory Results (Last 24 hours) 07/18/20 07/18/20 07/18/20 06:00 06:00 06:00 WBC 20.9 H RBC 4.07 L Hgb 10.4 L Hct 34.0 L MCV 83.5 MCH 25.6 L MCHC 30.6 L RDW 18.2 H Plt Count 258 MPV 10.8 Gran % 85.6 H Eos # (Auto) 0 Absolute Lymphs (auto) 1.12 Absolute Monos (auto) 1.87 H Lymphocytes % 5.4 L Monocytes % 9.0 Eosinophils % 0.0 Basophils % 0.0 Absolute Granulocytes 17.86 H Basophils # 0 Sodium 135 L Potassium 4.0 Chloride 104 Carbon Dioxide 22 Anion Gap 12.5 BUN 5 L Creatinine 0.52 Estimated GFR > 60.0 Glucose 112 H Lactic Acid Calcium 8.2 L Total Bilirubin 0.60 AST 14 ALT 19 Alkaline Phosphatase 76 Serum Total Protein 5.9 L Albumin 3.0 L Amylase 145 H Lipase 72 Urine Color Urine Appearance Urine pH Ur Specific [place] Urine Protein Urine Ketones Urine Blood Urine Nitrite Urine Bilirubin Urine Urobilinogen Ur Leukocyte Esterase Urine WBC (Auto) Urine RBC (Auto) U Epithel Cells (Auto) Urine Bacteria (Auto) Urine Mucus (Auto) Urine Culture Reflexed Urine Glucose Urine Opiates Level Ur Methadone Urine Barbiturates Ur Phencyclidine (PCP) Urine Amphetamine U Benzodiazepine Level Urine Cocaine Urine Marijuana (THC) Slides for Path Review 07/17/20 07/17/20 07/17/20 15:56 07:55 07:55 WBC 19.5 H RBC 4.60 Hgb 11.7 L Hct 37.9 MCV 82.4 MCH 25.4 L MCHC 30.9 L RDW 17.8 H Plt Count 275 MPV 11.2 H Gran % 82.6 H Eos # (Auto) 0 Absolute Lymphs (auto) 1.70 Absolute Monos (auto) 1.67 H Lymphocytes % 8.7 L Monocytes % 8.6 Eosinophils % 0.0 Basophils % 0.1 Absolute Granulocytes 16.09 H Basophils # 0.01 Sodium 134 L Potassium 3.8 Chloride 103 Carbon Dioxide 24 Anion Gap 11.6 BUN 7 Creatinine 0.61 Estimated GFR > 60.0 Glucose 116 H Lactic Acid Calcium 9.1 Total Bilirubin 0.30 AST 21 ALT 29 Alkaline Phosphatase 102 Serum Total Protein 7.4 Albumin 4.2 Amylase 782 H Lipase 1215 H Urine Color STRAW Urine Appearance CLEAR Urine pH 7.0 Ur Specific [place] 1.009 Urine Protein NEGATIVE Urine Ketones NEGATIVE Urine Blood SMALL Urine Nitrite NEGATIVE Urine Bilirubin NEGATIVE Urine Urobilinogen NEGATIVE Ur Leukocyte Esterase NEGATIVE Urine WBC (Auto) NONE Urine RBC (Auto) NONE U Epithel Cells (Auto) RARE Urine Bacteria (Auto) NONE Urine Mucus (Auto) SLIGHT Urine Culture Reflexed NO Urine Glucose NEGATIVE Urine Opiates Level Ur Methadone Urine Barbiturates Ur Phencyclidine (PCP) Urine Amphetamine U Benzodiazepine Level Urine Cocaine Urine Marijuana (THC) Slides for Path Review YES 07/17/20 07/17/20 07:55 07:49 WBC RBC Hgb Hct MCV MCH MCHC RDW Plt Count MPV Gran % Eos # (Auto) Absolute Lymphs (auto) Absolute Monos (auto) Lymphocytes % Monocytes % Eosinophils % Basophils % Absolute Granulocytes Basophils # Sodium Potassium Chloride Carbon Dioxide Anion Gap BUN Creatinine Estimated GFR Glucose Lactic Acid 1.3 Calcium Total Bilirubin AST ALT Alkaline Phosphatase Serum Total Protein Albumin Amylase Lipase Urine Color Urine Appearance Urine pH Ur Specific [place] Urine Protein Urine Ketones Urine Blood Urine Nitrite Urine Bilirubin Urine Urobilinogen Ur Leukocyte Esterase Urine WBC (Auto) Urine RBC (Auto) U Epithel Cells (Auto) Urine Bacteria (Auto) Urine Mucus (Auto) Urine Culture Reflexed Urine Glucose Urine Opiates Level POSITIVE Ur Methadone NEGATIVE Urine Barbiturates NEGATIVE Ur Phencyclidine (PCP) NEGATIVE Urine Amphetamine NEGATIVE U Benzodiazepine Level NEGATIVE Urine Cocaine NEGATIVE Urine Marijuana (THC) NEGATIVE Slides for Path Review Orders (Last 24 hours) Category Date Time Status Up With Assistance TID Activity 07/17/20 10:11 Active Clean Catch Urine Specimen STAT Care 07/17/20 07:49 Completed Code Status Order ROUTINE Care 07/17/20 10:11 Active IV Insertion STAT Care 07/17/20 07:[address] in Observation ROUTINE Care 07/17/20 10:11 Active Weight,Daily 0600 Care 07/17/20 10:11 Active 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 Cons 07/17/20 11:04 Active Clear Liquid Diet 07/17/20 Dinner Completed Full Liquid Diet Diet 07/18/20 Breakfast Active NPO except Meds Diet 07/17/20 10:12 Completed ABDOMEN AND PELVIS W/0 CONTRAS [CT] Stat Exams 07/17/20 07:50 Completed AMYLASE Stat Lab 07/17/20 07:55 Completed AMYLASE Stat Lab 07/18/20 06:00 Completed CBC W DIFF AM.LAB Lab 07/18/20 06:00 Completed CBC W DIFF Stat Lab 07/17/20 07:55 Completed CMP AM.LAB Lab 07/18/20 06:00 Completed CMP Stat Lab 07/17/20 07:55 Completed LIPASE Stat Lab 07/17/20 07:55 Completed LIPASE Stat Lab 07/18/20 06:00 Completed Lactic Acid Stat Lab 07/17/20 07:49 Completed UA W/RFX UR CULTURE Routine Lab 07/17/20 15:56 Completed Urine Triage Profile Stat Lab 07/17/20 07:55 Completed Albuterol 2.5 mg/3 ml Neb [Proventil 2.5 mg/3 ml Neb Med 07/17/20 19:00 Active ] 2.5 mg IH BIDRT Albuterol 2.5 mg/3 ml Neb [Proventil 2.5 mg/3 ml Neb Med 07/17/20 14:19 Active ] 2.5 mg IH Q4H PRN PRN Alprazolam 0.25 mg [xanAX 0.25 MG] Med 07/17/20 14:39 Active 0.25 mg PO DAILY PRN PRN Amox Tr/Potass Clav. 500 mg [Augmentin 500-125 Med 07/17/20 22:00 Discontinued Tablet] 500 mg PO BID Ceftriaxone 1 GM/50 ML PREMIX* [ROCEPHIN 1 Gm-D5w 50 ml Med 07/18/20 10:00 Ordered Bag] 1 g in 50 ml IV Q24H10 Diltiazem HCl 30 mg [Cardizem 30 MG] Med 07/17/20 15:00 Active 15 mg PO BID Famotidine 20 mg Vial [Pepcid 20 MG VIAL] Med 07/17/20 10:00 Active 40 mg IV DAILY Fluticasone/Salmeterol 115/ [Advair Hfa 115/21 Common Med 07/17/20 19:00 Active canister*] 2 puff IH BIDRT Hydromorphone 1 mg/1Ml Inj [Hydromorphone 1 mg/ml Med 07/17/20 07:56 Discontinued Injection] 1 mg .ROUTE .STK-MED ONE Hydromorphone 1 mg/1Ml Inj [Hydromorphone 1 mg/ml Med 07/17/20 10:11 Active Injection] 1 mg IV Q4H PRN PRN Hydromorphone 1 mg/1Ml Inj [Hydromorphone 1 mg/ml Med 07/17/20 07:49 Discontinued Injection] 1 mg IV STAT ONE Loratadine 10 mg [Claritin 10 mg] Med 07/17/20 15:00 Active 10 mg PO DAILY Medication Intervention Med 07/18/20 10:00 Active 1 each PO DAILY Meloxicam Med 07/17/20 15:00 Active 15 mg PO DAILY Metoprolol Succinate 25 mg Xl* [Toprol-Xl 25MG Tablets* Med 07/17/20 15:00 Active ] 25 mg PO BID Montelukast Sodium 10 mg [Singulair 10 MG] Med 07/17/20 15:00 Active 10 mg PO DAILY NaCl 0.9% 1000 ml [Sodium Chloride 0.9% 1000 ML] 1,000 Med 07/17/20 07:56 Discontinued ml .ROUTE UD NaCl 0.9% 1000 ml [Sodium Chloride 0.9% 1000 ML] 1,000 Med 07/17/20 10:11 Active ml IV 150 mls/hr NaCl 0.9% 1000 ml [Sodium Chloride 0.9% 1000 ML] 1,000 Med 07/17/20 07:49 Discontinued ml IV 999 mls/hr Ondansetron HCl 4 mg/2 ml [Zofran 4 MG/2 ML VIAL] Med 07/17/20 07:56 Discontinued 4 mg .ROUTE .STK-MED ONE Ondansetron HCl 4 mg/2 ml [Zofran 4 MG/2 ML VIAL] Med 07/17/20 10:11 Active 4 mg IV Q6H PRN PRN Ondansetron HCl 4 mg/2 ml [Zofran 4 MG/2 ML VIAL] Med 07/17/20 07:49 Discontinued 4 mg IV STAT ONE Oxycodone/APAP 5 mg/325 mg [Percocet Tablet 5/325Mg Med 07/17/20 14:39 Active *] 1 tab PO Q8HPRN PRN Paroxetine HCl 20 mg [Paxil 20 MG] Med 07/17/20 22:00 Active 10 mg PO QHS Patient Own Med [Patient Own Medication] Med 07/18/20 10:00 Active 1 each BC DAILY Ropinirole HCl 0.5 mg [Requip 0.5 MG] Med 07/17/20 22:00 Active 1 mg PO QHS OT Screen per Nursing Assess ONCE OT 07/17/20 11:04 Active PT Screen per Nursing Assess ONCE PT 07/17/20 11:04 Active Pulse Oximetry .spot check RT 07/17/20 13:26 Active RT Screen per Nursing Assess ONCE RT 07/17/20 11:04 Completed Respiratory Therapy Assessment DAILY RT 07/17/20 13:25 Active Patient Care Notes (Last 24 hours) 07/17/20 14:57 Nursing Note by Mikey Edgar ROUNDED WITH DR LOPEZ, NEW ORDER FOR CL DIET, AND UA Initialized on 07/17/20 14:57 - END OF NOTE Code(s): K91.89 - OTH POSTPROCEDURAL COMPLICATIONS AND DISORDERS OF DGSTV SYS; K85.90 - ACUTE PANCREATITIS WITHOUT NECROSIS OR INFECTION, UNSP (2) Abdominal pain Current Visit: Yes Status: Acute Onset Date: ~04/07/18 Qualifiers: Abdominal location: epigastric Qualified Code(s): R10.13 - Epigastric pain Code(s): R10.9 - UNSPECIFIED ABDOMINAL PAIN
[2020-07-18 08:18] LABS: Slide Review 1 YES
[2020-07-18] MEDS: Pepcid 20 MG VIAL IV SCH (09:00)
[2020-07-18] MEDS: Singulair 10 MG PO SCH (09:00)
[2020-07-18] MEDS: MELOXICAM PO SCH (09:00)
[2020-07-18] MEDS: CLARITIN 10 MG PO SCH (09:01)
[2020-07-18] MEDS: Toprol-Xl 25MG Tablets PO SCH ×2 (09:01→21:31)
[2020-07-18] MEDS: Cardizem 30 MG PO SCH ×2 (09:01→21:31)
[2020-07-18] MEDS: ROCEPHIN 1 Gm-D5w 50 ml Bag** 1 G/50 ML IVPB IV SCH (09:02)
[2020-07-18] MEDS: Hydromorphone 1 mg/ml Injection IV PRN ×4 (09:09→21:30)
[2020-07-18] MEDS: MEDICATION INTERVENTION PO SCH (09:21)
[2020-07-18] MEDS: PATIENT OWN MEDICATION BC SCH (09:22)
[2020-07-18] MEDS ORDERED: NON-FORMULARY ITEM (Meloxicam [Mobic] 15 MG) PO SCH (10:00)
[2020-07-18] MEDS ORDERED: DOXEPIN HCL 10 MG PO SCH (10:00)
[2020-07-18] MEDS ORDERED: NORETHINDRONE 0.35 MG PO SCH (10:00)
[2020-07-18] MEDS: Zofran 4 MG/2 ML VIAL IV PRN (15:03)
[2020-07-18] MEDS: Requip 0.5 MG PO SCH (21:31)
[2020-07-18] MEDS: Paxil 20 MG PO SCH (21:31)
[2020-07-19] MEDS: Sodium Chloride 0.9% 1000 ML 1,000 ML IV SCH ×2 (02:09→09:30)
[2020-07-19] MEDS: Advair Hfa 115/21 Common canister IH SCH ×2 (07:09→20:25)
[2020-07-19] MEDS: PROVENTIL 2.5 MG/3 ML NEB IH SCH ×2 (07:09→20:23)
[2020-07-19 08:12] LABS: Absolute Neutrophil Ct (ANC) 13.71 (1.4-6.9); BASOPHIL % 0.1 % (0.0-0.4); Basophil (Absolute #) 0.01 (0-0.4); Eosinophil (Absolute #) 0 (0-0.5); Hematocrit 33.4 % (35-47); Hemoglobin 10.4 gm/dl (12.0-16.0); Lymphocyte (Absolute #) 1.44 (1.0-4.6); Mean Cell Volume 82.5 fl (78-100); Mean Corpuscular Hemoglobin 25.7 pg (26-32); Mean Corpuscular Hgb Concent. 31.1 g/dl (32-36); Mean Platelet Volume 10.1 fl (7.5-11.0); Monocyte (Absolute #) 0.78 (0.0-1.3); Monocytes % 4.9 % (0.0-12.0); Platelet Count 266 K/mm3 (150-450); Red Blood Count 4.05 M/mm3 (4.1-5.4); White Blood Count 15.9 K/mm3 (4.0-10.5)
[2020-07-19 08:36] LABS: ALBUMIN 3.4 g/dL (3.5-5.0); ALKALINE PHOSPHATASE 82 U/L (38-126); AMYLASE 78 U/L (30-110); ANION GAP 12.2 MEQ/L (5-15); BLOOD UREA NITROGEN 7 mg/dL (7-17); CHLORIDE 108 mmol/L (98-107); Calcium 8.7 mg/dL (8.4-10.2); Carbon Dioxide 21 mmol/L (22-30); EST GLOMERULAR FILTRATION RATE > 60.0 ML/MIN; Glucose 113 mg/dL (74-106); LIPASE 55 U/L (23-300); Potassium 3.9 mmol/L (3.5-5.1); SGOT/AST 15 U/L (14-36); SGPT/ALT 18 U/L (0-35); SODIUM 137 mmol/L (137-145); Total Protein 6.8 g/dL (6.3-8.2)
[2020-07-19] MEDS ORDERED: Dilaudid 4 MG Tab PO PRN (08:47)
[2020-07-19] MEDS: ROCEPHIN 1 Gm-D5w 50 ml Bag** 1 G/50 ML IVPB IV SCH (09:30)
[2020-07-19] MEDS: Pepcid 20 MG VIAL IV SCH (09:31)
[2020-07-19] MEDS: Cardizem 30 MG PO SCH ×2 (09:32→21:30)
[2020-07-19] MEDS: Toprol-Xl 25MG Tablets PO SCH ×2 (09:32→21:31)
[2020-07-19] MEDS: Singulair 10 MG PO SCH (09:32)
[2020-07-19] MEDS: CLARITIN 10 MG PO SCH (09:32)
[2020-07-19] MEDS: MELOXICAM PO SCH (09:32)
[2020-07-19] MEDS: PATIENT OWN MEDICATION BC SCH (09:33)
[2020-07-19] MEDS: MEDICATION INTERVENTION PO SCH (09:33)
[2020-07-19] MEDS: Zofran 4 MG/2 ML VIAL IV PRN ×2 (12:08→18:29)
[2020-07-19] MEDS: Requip 0.5 MG PO SCH (21:29)
[2020-07-19] MEDS: Paxil 20 MG PO SCH (21:29)
[2020-07-20] MEDS: Sodium Chloride 0.9% 1000 ML 1,000 ML IV SCH (00:41)
[2020-07-20 05:13] LABS: Hematocrit 33.4 % (35-47); Hemoglobin 10.2 gm/dl (12.0-16.0); Mean Cell Volume 83.1 fl (78-100); Mean Corpuscular Hemoglobin 25.4 pg (26-32); Mean Corpuscular Hgb Concent. 30.5 g/dl (32-36); Mean Platelet Volume 10.4 fl (7.5-11.0); Platelet Count 308 K/mm3 (150-450); Red Blood Count 4.02 M/mm3 (4.1-5.4); Red Cell Distribution Width 18.3 % (11.5-14.0); White Blood Count 14.8 K/mm3 (4.0-10.5)
[2020-07-20 05:45] LABS: ALBUMIN 3.4 g/dL (3.5-5.0); ALKALINE PHOSPHATASE 73 U/L (38-126); ANION GAP 12.2 MEQ/L (5-15); BLOOD UREA NITROGEN 9 mg/dL (7-17); CHLORIDE 106 mmol/L (98-107); Calcium 8.7 mg/dL (8.4-10.2); Carbon Dioxide 22 mmol/L (22-30); Creatinine 1 0.54 mg/dL (0.52-1.04); EST GLOMERULAR FILTRATION RATE > 60.0 ML/MIN; Glucose 98 mg/dL (74-106); SGOT/AST 16 U/L (14-36); SGPT/ALT 16 U/L (0-35); SODIUM 135 mmol/L (137-145); Total Protein 6.8 g/dL (6.3-8.2)
[2020-07-20] MEDS: Advair Hfa 115/21 Common canister IH SCH (07:08)
[2020-07-20] MEDS: PROVENTIL 2.5 MG/3 ML NEB IH SCH (07:08)
[2020-07-20 07:16] VITALS: PULSE 75
[2020-07-20 07:40] VITALS: BP 135/73; O2SAT 95
[2020-07-20] MEDS: ROCEPHIN 1 Gm-D5w 50 ml Bag** 1 G/50 ML IVPB IV SCH (08:32)
[2020-07-20] MEDS: Pepcid 20 MG VIAL IV SCH (08:33)
[2020-07-20] MEDS: Toprol-Xl 25MG Tablets PO SCH (08:33)
[2020-07-20] MEDS: Cardizem 30 MG PO SCH (08:33)
[2020-07-20] MEDS: MELOXICAM PO SCH (08:33)
[2020-07-20] MEDS: CLARITIN 10 MG PO SCH (08:33)
[2020-07-20] MEDS: Singulair 10 MG PO SCH (08:33)
[2020-07-20] MEDS: MEDICATION INTERVENTION PO SCH (09:15)
[2020-07-20] MEDS: PATIENT OWN MEDICATION BC SCH (09:16)
--- NOTE | 2020-07-20 10:33 | DS ---
DISCHARGE DIAGNOSIS: PANCREATITIS. HISTORY: The patient is a 20 year-old white female who was seen at [facility] and had ERCP with sphincterotomy by Dr. Bennett last . The patient afterwards experienced abdominal pain. She presented herself to the emergency room where she was found to have pancreatitis with an elevation in her amylase and lipase. The patient was given Percocet and Augmentin after the procedure but the patient presented to the emergency room with the above problems. HOSPITAL COURSE: The patient was admitted for IV fluids. She was given Dilaudid for pain control and gut rest initially. She was then changed to clear liquids. Her amylase and lipase actually resolved to normal within 24 hours but the patient was still having pain with meals. She also had an elevation in white count up to 15,900. She was treated with IV Rocephin. Cultures thus far have not shown any organism. The patient by the morning of 07/20/2020 was doing better and taking clear liquids fine. She used Dilaudid for pain control twice in the last 24 hours. As indicated above the patient has Percocet for her pain use at home which was given to her by Dr. Bennett and Augmentin. The patient will return to taking these medications and follow up with him in his office. It was noted on the white count that the patient's total had gotten to 20,900. CT scan findings were favoring acute pancreatitis with free fluid, no walled fluid collection or free air on the noncontrast exam. Again, the patient is felt to be ready for discharge home at this time using the Percocet for pain and Augmentin for continuing her antibiotic prescription. We will follow her up in our office after she is seen by Dr. Bennett. She was also instructed to come back to the emergency room if she has any problems with increasing abdominal pain, fever, chills or sweats.
== END 2020-07-20 09:55 | disposition home or self-care (01) ==
LOC: ED 07:08 → MED SURG 10:09
PROVIDERS: ADMIT General Practice; ATTEND Family Medicine
DX: K85.90 Acute pancreatitis without necrosis or infection, unspecified (principal); Z79.899 Other long term (current) drug therapy; Z98.890 Other specified postprocedural states
CPT/HCPCS: 36000; 36415; 74176; 80053; 80307; 81001; 82150; 83605; 83690; 84145; 85025; 85027; 94640; 94760; 96360; 96374; 96375; 99285; G0378; J0696; J1170; J2405; J7609; A9270-GY

== ENCOUNTER 2020-10-14 16:05 | Emergency (ER) | payer OTHER ==
[2020-10-14] MEDS ORDERED: BABY ASPIRIN 81 MG CHEW PO ONE (16:40)
--- NOTE | 2020-10-14 16:42 | ERPHSYRPT ---
- History of Present Illness Time Seen by Provider: 10/14/20 16:10 Historian: patient Exam Limitations: no limitations Patient Subjective Stated Complaint: Pt states "My feet have been swelling for the past couple of days and my mother said that my face was swelling and today I was having chest pain. My freight traffic consultant is Dr. Rudd." Triage Nursing Assessment: Pt presented alert and oriented X 3, skin pwd Pt ambulates with an upright steady gait, able to speak in clear full sentences. Pt in no apparent respiratory distress. Physician History: Patient is a 20-year-old female presents to our emergency department for ev aluation of chest pain and swelling. Patient states she has a history of tachycardia. Patient is currently on Cardizem and metoprolol per patient. Patient's primary care doctor/freight traffic consultant is Dr. Gillespie. Patient states that her feet have been swelling more so at night. Swelling improves when she elevates her legs. Mother is on the phone during this exam and states that she has noticed that patient's face looks "puffy". No active chest pain at this time. Symptoms are mild in intensity at this time. No specific worsening or improving factors. Patient states is otherwise healthy. She voices no other complaints or concerns at this time. Timing/Duration: yesterday Activities at Onset: none Quality: aching Location: substernal Chest Pain Radiation: no radiation Severity of Pain-Max: moderate Severity of Pain-Current: mild Modifying Factors: Improves With: nothing Associated Symptoms: denies symptoms, No nausea, No vomiting, No shortness of breath, No chills, No fatigue, No weakness, No swelling/lump in chest, No headache Prior Chest Pain/Cardiac Workup: no prior chest pain Nitro Today/Relief: no nitro taken today Aspirin Treatment Today: no aspirin today Allergies/Adverse Reactions: mirtazapine [From Remeron] Allergy (Intermediate, Verified 08/16/20 13:08) Tightness of Throat Home Medications: Metoprolol Succinate 25 mg Xl* [Toprol-Xl 25MG Tablets] 2 tab PO BID 03/07/19 [History] Albuterol 8 gm Mdi Hfa [Ventolin Hfa MDI] 2 puff NEB QID 11/20/19 [History] Alprazolam [Xanax] 0.25 mg PO DAILY PRN PRN 07/17/20 [History] Budesonide/Formoterol Fumarate [Budesonide-Formoterol 80-4.5] 2 puffs IH BID 07/17/20 [History] Doxepin HCl 20 mg PO DAILY 07/17/20 [History] Loratadine 10 mg [Claritin 10 mg] 10 mg PO DAILY 07/17/20 [History] Meloxicam [Mobic] 15 mg PO DAILY 07/17/20 [History] Montelukast Sodium 10 mg [Singulair 10 MG] 10 mg PO DAILY 07/17/20 [History] PARoxetine HCl [Paxil] 20 mg PO QHS 07/17/20 [History] Ropinirole HCl [Requip] 1 mg PO QHS 07/17/20 [History] dilTIAZem HCL [Diltiazem HCl] 30 mg PO BID 07/17/20 [History] Hx Tetanus, Diphtheria Vaccination/Date Given: No Hx Influenza Vaccination/Date Given: Yes Hx Pneumococcal Vaccination/Date Given: No Immunizations Up to Date: Yes Travel Risk - International Travel Have you traveled outside of the country in past 3 weeks: No - Coronavirus Screening Are you exhibiting any of the following symptoms?: No Close contact with a COVID-19 positive Pt in past 14-21 Days: No - Vaccine Status Have you recieved a Covid-19 vaccination: Yes 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[employer] - Vaccination Dates Date of 2cond Vaccination (if applicable): 09/28/2020 - Review of Systems Constitutional: No Symptoms, No Fever, No Chills Eyes: No Symptoms Ears, Nose, & Throat: No Symptoms Respiratory: No Symptoms, No Cough, No Dyspnea Cardiac: No Symptoms, No Chest Pain, No Edema, No Syncope Abdominal/Gastrointestinal: No Symptoms, No Abdominal Pain, No Nausea, No Vomit ing, No Diarrhea Genitourinary Symptoms: No Symptoms, No Dysuria Musculoskeletal: No Symptoms, No Back Pain, No Neck Pain Skin: No Symptoms, No Rash Neurological: No Symptoms, No Dizziness, No Focal Weakness, No Sensory Changes Psychological: No Symptoms Endocrine: No Symptoms Hematologic/Lymphatic: No Symptoms Immunological/Allergic: No Symptoms All Other Systems: Reviewed and Negative - Past Medical History Pertinent Past Medical History: Yes Neurological History: Migraines, Other ENT History: No Pertinent History Cardiac History: No Pertinent History, Other Respiratory History: Asthma Endocrine Medical History: No Pertinent History Musculoskeletal History: No Pertinent History, Fractures GI Medical History: Pancreatitis, Ulcer, Other History: No Pertinent History Psycho-Social History: Anxiety, Bipolar, Depression, Other Female Reproductive Disorders: No Pertinent History, Other Other Medical History: Murmur and rapid heart rate. R foot fx ; pt does not recall specific bone. Bone disease, unknown. Vertigo. Ovarian cysts. PTSD, and borderline personality disorder - Past Surgical History Past Surgical History: Yes Neuro Surgical History: No Pertinent History Cardiac: No Pertinent History Respiratory: No Pertinent History Gastrointestinal: Other Genitourinary: No Pertinent History Musculoskeletal: Orthopedic Surgery Female Surgical History: No Pertinent History Other Surgical History: egd and colonoscopy,exploratory abd surgery, ercp - Social History Smoking Status: Never smoker Exposure to second hand smoke: Yes Drug Use: none Patient Lives Alone: No - Female History Hx Last Menstrual Period: now Hx Now: No - Nursing Vital Signs Nursing Vital Signs: Initial Vital Signs Temperature 97.9 F 10/14/20 16:06 Pulse Rate 94 H 10/14/20 16:06 Respiratory Rate 20 10/14/20 16:06 Blood Pressure 132/72 10/14/20 16:06 O2 Sat by Pulse Oximetry 97 10/14/20 16:06 Pain Scale Pain Intensity 5 - Physical Exam General Appearance: no apparent distress, alert Eye Exam: PERRL/EOMI, eyes nml inspection Ears, Nose, Throat Exam: normal ENT inspection, moist mucous membranes Neck Exam: normal inspection, non-tender, supple, full range of motion Respiratory Exam: normal breath sounds, lungs clear, No respiratory distress Cardiovascular Exam: regular rate/rhythm, normal heart sounds Gastrointestinal/Abdomen Exam: soft, No tenderness, No mass Back Exam: normal inspection, No CVA tenderness, No vertebral tenderness Extremity Exam: normal inspection, normal range of motion Neurologic Exam: alert, 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, cooperative, normal mood/affect, sensation nml, No motor deficits Skin Exam: normal color, warm, dry Lymphatic Exam: No adenopathy SpO2 Interpretation: normal SpO2: 97 O2 Delivery: Room Air - Course Nursing assessment & vital signs reviewed: Yes EKG Interpreted by Me: RATE (90), Sinus Rhythm, NORMAL AXIS, NORMAL INTERVALS - Radiology Exams Chest X-ray Interpretation: Teleradiologist Report (Nonacute chest) Ordered Tests: Active Orders 24 hr Category Date Time Status Global Human Resources Director STAT Care 10/14/20 16:36 Active EKG-ER Only STAT Care 10/14/20 16:35 Active IV Insertion STAT Care 10/14/20 16:35 Active Pulse Oximetry (ED) STAT Care 10/14/20 16:35 Active CHEST 1 VIEW (PORTABLE) Stat Exams 10/14/20 16:36 Completed CBC W DIFF Stat Lab 10/14/20 16:50 Completed CMP Stat Lab 10/14/20 16:50 Completed CULTURE,URINE Stat Lab 10/14/20 17:02 Received D-DIMER QUANTITATIVE Stat Lab 10/14/20 16:50 Completed MAGNESIUM Stat Lab 10/14/20 16:50 Completed NT PRO BNP Stat Lab 10/14/20 16:50 Completed TROPONIN Q3H Lab 10/14/20 16:50 Completed TROPONIN Q3H Lab 10/14/20 19:25 Completed TROPONIN Q3H Lab 10/14/20 22:45 Ordered TROPONIN Q3H Lab 10/15/20 01:45 Ordered TROPONIN Q3H Lab 10/15/20 04:45 Ordered UA W/RFX UR CULTURE Stat Lab 10/14/20 17:02 Completed Medication Summary Discontinued Medications Generic Name Dose Route Start Last Admin Trade Name Freq PRN Reason Stop Dose Admin Acetaminophen 975 mg 10/14/20 19:12 10/14/20 19:27 Tylenol 325 Mg PO 10/14/20 19:13 975 mg STAT ONE Administration Acetaminophen Confirm 10/14/20 19:23 Tylenol 325 Mg Administered 10/14/20 19:24 Dose 975 mg .ROUTE .STK-MED ONE Aspirin 324 mg 10/14/20 16:40 10/14/20 17:03 Baby Aspirin 81 Mg Chew PO 10/14/20 16:41 324 mg STAT ONE Administration Aspirin Confirm 10/14/20 17:03 Baby Aspirin 81 Mg Chew Administered 10/14/20 17:04 Dose 324 mg .ROUTE .STK-MED ONE Lab/Rad Data: Laboratory Result Diagrams 10/14/20 16:50 10/14/20 16:50 Laboratory Results 10/14/20 10/14/20 10/14/20 Range/Units 19:25 17:02 16:50 WBC (4.0-10.5) K/mm3 RBC (4.1-5.4) M/mm3 Hgb (12.0-16.0) gm/dl Hct (35-47) % MCV (78-100) fl MCH (26-32) pg MCHC (32-36) g/dl RDW (11.5-14.0) % Plt Count (150-450) K/mm3 MPV (7.5-11.0) fl Gran % (36.0-66.0) % Eos # (Auto) (0-0.5) Absolute Lymphs (auto) (1.0-4.6) Absolute Monos (auto) (0.0-1.3) Lymphocytes % (24.0-44.0) % Monocytes % (0.0-12.0) % Eosinophils % (0.00-5.0) % Basophils % (0.0-0.4) % Absolute Granulocytes (1.4-6.9) Basophils # (0-0.4) D-Dimer 425 (215-500) ng/mL Sodium (137-145) mmol/L Potassium (3.5-5.1) mmol/L Chloride (98-107) mmol/L Carbon Dioxide (22-30) mmol/L Anion Gap (5-15) MEQ/L BUN (7-17) mg/dL Creatinine (0.52-1.04) mg/dL Estimated GFR ML/MIN Glucose (74-106) mg/dL Calcium (8.4-10.2) mg/dL Magnesium (1.6-2.3) mg/dL Total Bilirubin (0.2-1.3) mg/dL AST (14-36) U/L ALT (0-35) U/L Alkaline Phosphatase (38-126) U/L Troponin I < 0.012 (0.000-0.034) ng/mL NT-Pro-B Natriuret Pep (0-450) pg/mL Serum Total Protein (6.3-8.2) g/dL Albumin (3.5-5.0) g/dL Urine Color SIERRA (YELLOW) Urine Appearance SLIGHTLY CLOUDY (CLEAR) Urine pH 5.0 (5-6) Ur Specific [place] 1.033 (1.005-1.025) Urine Protein 100 (Negative) Urine Ketones NEGATIVE (NEGATIVE) Urine Blood LARGE (0-5) Star/ul Urine Nitrite NEGATIVE (NEGATIVE) Urine Bilirubin NEGATIVE (NEGATIVE) Urine Urobilinogen 2 (0-1) mg/dL Ur Leukocyte Esterase NEGATIVE (NEGATIVE) Urine WBC (Auto) 11-15 (0-5) /HPF Urine RBC (Auto) >101 (0-2) /HPF U Epithel Cells (Auto) RARE (FEW) /HPF Urine Bacteria (Auto) NONE (NEGATIVE) /HPF Urine Mucus (Auto) SLIGHT (NEGATIVE) /HPF Urine Culture Reflexed YES (NO) Urine Glucose NEGATIVE (NEGATIVE) mg/dL 10/14/20 10/14/20 10/14/20 Range/Units 16:50 16:50 16:50 WBC 7.8 (4.0-10.5) K/mm3 RBC 4.67 (4.1-5.4) M/mm3 Hgb 12.9 (12.0-16.0) gm/dl Hct 40.7 (35-47) % MCV 87.2 (78-100) fl MCH 27.6 (26-32) pg MCHC 31.7 L (32-36) g/dl RDW 14.9 H (11.5-14.0) % Plt Count 281 (150-450) K/mm3 MPV 10.4 (7.5-11.0) fl Gran % 66.9 H (36.0-66.0) % Eos # (Auto) 0.10 (0-0.5) Absolute Lymphs (auto) 1.96 (1.0-4.6) Absolute Monos (auto) 0.49 (0.0-1.3) Lymphocytes % 25.1 (24.0-44.0) % Monocytes % 6.3 (0.0-12.0) % Eosinophils % 1.3 (0.00-5.0) % Basophils % 0.4 (0.0-0.4) % Absolute Granulocytes 5.24 (1.4-6.9) Basophils # 0.03 (0-0.4) D-Dimer (215-500) ng/mL Sodium 138 (137-145) mmol/L Potassium 3.6 (3.5-5.1) mmol/L Chloride 106 (98-107) mmol/L Carbon Dioxide 23 (22-30) mmol/L Anion Gap 12.3 (5-15) MEQ/L BUN 9 (7-17) mg/dL Creatinine 0.70 (0.52-1.04) mg/dL Estimated GFR > 60.0 ML/MIN Glucose 143 H (74-106) mg/dL Calcium 8.8 (8.4-10.2) mg/dL Magnesium 2.1 (1.6-2.3) mg/dL Total Bilirubin 0.30 (0.2-1.3) mg/dL AST 71 H (14-36) U/L ALT 90 H (0-35) U/L Alkaline Phosphatase 121 (38-126) U/L Troponin I < 0.012 (0.000-0.034) ng/mL NT-Pro-B Natriuret Pep 51.7 (0-450) pg/mL Serum Total Protein 6.7 (6.3-8.2) g/dL Albumin 3.8 (3.5-5.0) g/dL Urine Color (YELLOW) Urine Appearance (CLEAR) Urine pH (5-6) Ur Specific [place] (1.005-1.025) Urine Protein (Negative) Urine Ketones (NEGATIVE) Urine Blood (0-5) Satr/ul Urine Nitrite (NEGATIVE) Urine Bilirubin (NEGATIVE) Urine Urobilinogen (0-1) mg/dL Ur Leukocyte Esterase (NEGATIVE) Urine WBC (Auto) (0-5) /HPF Urine RBC (Auto) (0-2) /HPF U Epithel Cells (Auto) (FEW) /HPF Urine Bacteria (Auto) (NEGATIVE) /HPF Urine Mucus (Auto) (NEGATIVE) /HPF Urine Culture Reflexed (NO) Urine Glucose (NEGATIVE) mg/dL - Progress Progress: improved Air Movement: good Progress Note: Patient reassessed. She complains of some residual chest discomfort. Patient appears to be comfortable however. Negative troponin x2. D-dimer negative as well. Chest x-ray negative. Physical exam negative. Vitals within normal limits. I spoke to Dr. Duffy, covering who states patient may follow-up in the cardiology office tomorrow morning. Patient to call first thing in the morning to schedule an appointment time. Mother was on the phone with patient. Plan of care discussed with mother. Both mother and patient agree with the plan of care. Patient voices no other complaints or concerns at this time. Will discharge home. Urine culture suggestive of possible UTI. Patient otherwise asymptomatic. Will send urine cultures. We will hold off on antibiotic at this time pending urine culture results. Heart score History, 0 EK Age 0 Risk factors 1 Initial troponin 0 Patient is low risk. 10/14/20 21:24 10/14/20 21:29 Blood Culture(s) Obtained: No Antibiotics given: No Counseled pt/family regarding: lab results, diagnosis, need for follow-up, rad results - Departure Departure Disposition: Home Clinical Impression: Chest pain Condition: Stable Critical Care Time: No Referrals: LYNETTE DOHERTY [Primary Care Provider] - Additional Instructions: Discharge/Care Plan FLAVIA OSORIO was seen on 10/14/20 in the Emergency Room. The patient was counseled regarding Diagnosis,Lab results, Imaging studies, need for follow up and when to return to the Emergency Room. Prescriptions given: Discharge Note I have spoken with the patient and/or caregivers. I have explained the patient's condition, diagnosis and treatment plan based on the information available to me at this time. I have answered the patient's and/or caregiver's questions and addressed any concerns. The patient and/or caregivers have as good understanding of the patient's diagnosis, condition and treatment plan as can be expected at this point. The vital signs have been stable. The patient's condition is stable and appropriate for discharge from the emergency department. The patient will pursue further outpatient evaluation with the primary care physician or other designated or consulting physician as outlined in the discharge instructions. The patient and/or caregivers are agreeable to this plan of care and follow-up instructions have been explained in detail. The patient and/or caregivers have received these instruction. The patient/and or caregivers are aware that any significant change in condition or worsening of symptoms should prompt an immediate return to this or the closest emergency department or call 911.
[2020-10-14] MEDS ORDERED: BABY ASPIRIN 81 MG CHEW ONE (17:03)
[2020-10-14 17:04] LABS: Absolute Neutrophil Ct (ANC) 5.24 (1.4-6.9); BASOPHIL % 0.4 % (0.0-0.4); Basophil (Absolute #) 0.03 (0-0.4); Eosinophil % 1.3 % (0.00-5.0); Hematocrit 40.7 % (35-47); Hemoglobin 12.9 gm/dl (12.0-16.0); Lymphocyte (Absolute #) 1.96 (1.0-4.6); Lymphocytes % 25.1 % (24.0-44.0); Mean Cell Volume 87.2 fl (78-100); Mean Corpuscular Hemoglobin 27.6 pg (26-32); Mean Corpuscular Hgb Concent. 31.7 g/dl (32-36); Mean Platelet Volume 10.4 fl (7.5-11.0); Monocyte (Absolute #) 0.49 (0.0-1.3); Monocytes % 6.3 % (0.0-12.0); Neutrophil % 66.9 % (36.0-66.0); Platelet Count 281 K/mm3 (150-450); Red Blood Count 4.67 M/mm3 (4.1-5.4); Red Cell Distribution Width 14.9 % (11.5-14.0); White Blood Count 7.8 K/mm3 (4.0-10.5)
--- NOTE | 2020-10-14 17:08 | XRAY ---
Indication: Chest pain. Comparison: April 07, 2018. Portable chest less inflated and remains clear. Heart not enlarged. Bony thorax intact again with chronic left rib deformities. Impression: Continued nonacute chest.
[2020-10-14 17:18] LABS: ALBUMIN 3.8 g/dL (3.5-5.0); ALKALINE PHOSPHATASE 121 U/L (38-126); ANION GAP 12.3 MEQ/L (5-15); BLOOD UREA NITROGEN 9 mg/dL (7-17); CHLORIDE 106 mmol/L (98-107); Calcium 8.8 mg/dL (8.4-10.2); Carbon Dioxide 23 mmol/L (22-30); EST GLOMERULAR FILTRATION RATE > 60.0 ML/MIN; Glucose 143 mg/dL (74-106); MAGNESIUM 2.1 mg/dL (1.6-2.3); NT PRO BNP 51.7 pg/mL (0-450); Potassium 3.6 mmol/L (3.5-5.1); SGOT/AST 71 U/L (14-36); SGPT/ALT 90 U/L (0-35); SODIUM 138 mmol/L (137-145); Total Protein 6.7 g/dL (6.3-8.2)
[2020-10-14 17:24] LABS: Appearance SLIGHTLY CLOUDY (CLEAR); Bilirubin NEGATIVE (NEGATIVE); Blood LARGE Ery/ul (0-5); Epithelial Cells RARE /HPF (FEW); Glucose NEGATIVE (NEGATIVE); Ketones NEGATIVE (NEGATIVE); Leukocyte Esterase NEGATIVE (NEGATIVE); Mucus SLIGHT /HPF (NEGATIVE); Nitrite NEGATIVE (NEGATIVE); Protein,Urine Dip 100 (Negative); Specific Gravity 1.033 (1.005-1.025); Urobilinogen 2 mg/dL (0-1)
[2020-10-14 17:38] LABS: RBC >101 /HPF (0-2)
[2020-10-14] MEDS ORDERED: TYLENOL 325 MG PO ONE (19:12)
[2020-10-14] MEDS ORDERED: TYLENOL 325 MG ONE (19:23)
[2020-10-14 21:29] VITALS: O2SAT 97
[2020-10-14 21:48] VITALS: BP 127/72; PULSE 89
== END 2020-10-14 21:48 | disposition home or self-care (01) ==
LOC: ED 16:05
DX: R07.9 Chest pain, unspecified (principal)
CPT/HCPCS: 36000; 36415; 71045; 80053; 81001; 83735; 83880; 84484; 85025; 85379; 87077; 87086; 87186; 93005; 93041; 94760; 99284; A9270-GY

== ENCOUNTER 2021-11-21 21:50 | Emergency (ER) | payer OTHER ==
--- NOTE | 2021-11-21 21:56 | ERPHSYRPT ---
- History of Present Illness Time Seen by Provider: 11/21/21 21:56 Source: patient Exam Limitations: no limitations Physician History: This is a 21-year-old female who presents with 3-day history of bilateral earaches with left side worse than the right. Patient thought that maybe there was too much earwax and therefore used earwax removal solution [id number]. However, the pain in the left ear worsened. Patient has not had a fever. Patient states that she has taken a Z-[id number] and amoxicillin in the past and they make her little nauseated but they did not give her a rash. Patient has a history of hypertension, anxiety, seasonal allergies, asthma, migraine headaches, bipolar disorder and depression. Timing/Duration: gradual onset, days (3) ENT Location: ear (L) Prearrival Treatment: over the counter meds (Including earwax removal) Associated Symptoms: ear pain (L) Allergies/Adverse Reactions: mirtazapine [From Remeron] Allergy (Intermediate, Verified 11/21/21 22:04) Tightness of Throat Home Medications: Metoprolol Succinate 25 mg Xl* [Toprol-Xl 25MG Tablets] 2 tab PO DAILY 03/07/19 [History] Albuterol 8 gm Mdi Hfa [Ventolin Hfa MDI] 2 puff NEB QID 11/20/19 [History] Budesonide/Formoterol Fumarate [Budesonide-Formoterol 80-4.5] 2 puffs IH BID 07/17/20 [History] Loratadine 10 mg [Claritin 10 mg] 10 mg PO DAILY 07/17/20 [History] Montelukast Sodium 10 mg [Singulair 10 MG] 10 mg PO DAILY 07/17/20 [History] Ropinirole HCl [Requip] 1 mg PO QHS 07/17/20 [History] Empagliflozin [Jardiance] 25 mg PO DAILY 11/21/21 [History] Lorazepam 0.5 mg [Ativan 0.5 MG] 0.5 mg PO DAILY 11/21/21 [History] Hx Tetanus, Diphtheria Vaccination/Date Given: No Hx Influenza Vaccination/Date Given: Yes Hx Pneumococcal Vaccination/Date Given: No Travel Risk - International Travel Have you traveled outside of the country in past 3 weeks: No - Coronavirus Screening Are you exhibiting any of the following symptoms?: No Close contact with a COVID-19 positive Pt in past 14-21 Days: No - Vaccine Status Have you recieved a Covid-19 vaccination: Yes 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[employer] - Vaccination Dates Date of 2cond Vaccination (if applicable): 09/28/2020 - Review of Systems Constitutional: No Symptoms Eyes: No Symptoms Ears, Nose, & Throat: Ear Pain (Left), Tinnitus (Left) Respiratory: No Symptoms Cardiac: No Symptoms Abdominal/Gastrointestinal: No Symptoms Genitourinary Symptoms: No Symptoms Musculoskeletal: No Symptoms Skin: No Symptoms Neurological: No Symptoms Psychological: No Symptoms Endocrine: No Symptoms Hematologic/Lymphatic: No Symptoms Immunological/Allergic: No Symptoms All Other Systems: Reviewed and Negative - Past Medical History Pertinent Past Medical History: Yes Neurological History: Migraines, Other ENT History: No Pertinent History Cardiac History: No Pertinent History, Other Respiratory History: Asthma Endocrine Medical History: No Pertinent History Musculoskeletal History: No Pertinent History, Fractures GI Medical History: Pancreatitis, Ulcer, Other History: No Pertinent History Psycho-Social History: Anxiety, Bipolar, Depression, Other Female Reproductive Disorders: No Pertinent History, Other Other Medical History: Murmur and rapid heart rate. R foot fx ; pt does not recall specific bone. Bone disease, unknown. Vertigo. Ovarian cysts. PTSD, and borderline personality disorder - Past Surgical History Past Surgical History: Yes Neuro Surgical History: No Pertinent History Cardiac: No Pertinent History Respiratory: No Pertinent History Gastrointestinal: Other Genitourinary: No Pertinent History Musculoskeletal: Orthopedic Surgery Female Surgical History: No Pertinent History Other Surgical History: egd and colonoscopy,exploratory abd surgery, ercp - Social History Smoking Status: Never smoker Exposure to second hand smoke: Yes Drug Use: none Patient Lives Alone: No - Nursing Vital Signs Nursing Vital Signs: Initial Vital Signs Temperature 97.0 F 11/21/21 21:59 Pulse Rate 96 H 11/21/21 21:59 Respiratory Rate 16 11/21/21 21:59 Blood Pressure 136/87 11/21/21 21:59 O2 Sat by Pulse Oximetry 97 11/21/21 21:59 Pain Scale Pain Intensity 6 - Physical Exam General Appearance: no apparent distress, alert, anxiety Eye Exam: bilateral eye: normal inspection, PERRL, EOMI Ear Exam: bilateral ear: auricle normal, swelling, tenderness, TM dull Nasal Exam: normal inspection Throat Exam: normal, pharynx normal, No dental tenderness Neck Exam: normal inspection, non-tender, supple, full range of motion, trachea midline Cardiovascular/Respiratory Exam: chest non-tender, no respiratory distress Abdominal Exam: non-tender Neurologic Exam: alert, 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, cooperative, patient service specialist II-XII nml as tested Skin Exam: normal color, warm, dry SpO2 Interpretation: normal O2 Delivery: Room Air - Course Nursing assessment & vital signs reviewed: Yes - Progress Progress: unchanged Counseled pt/family regarding: diagnosis, need for follow-up, rad results - Departure Departure Disposition: Home Clinical Impression: Left otitis media Condition: Stable Critical Care Time: No Referrals: LYNETTE DOHERTY [Primary Care Provider] - Follow up/PCP as directed Additional Instructions: Use Tylenol and ibuprofen for pain control. Take your antibiotics as prescribed. Follow-up with your primary care physician for further evaluation and management. Prescriptions: Prednisone 10 mg [Deltasone 10 mg] 10 mg PO TID #12 tablet Azithromycin 250 mg [Zithromax 250 MG TABLET] 250 mg PO ZPACK #6 tablet
[2021-11-21] MEDS ORDERED: Rocephin 1000 MG INJ IM ONE (22:38)
[2021-11-21] MEDS ORDERED: Rocephin 1000 MG INJ ONE (22:41)
[2021-11-21 22:47] VITALS: BP 126/74; PULSE 92; O2SAT 98
== END 2021-11-21 22:58 | disposition home or self-care (01) ==
LOC: ED 21:50
DX: H66.92 Otitis media, unspecified, left ear (principal); H92.03 Otalgia, bilateral; I10 Essential (primary) hypertension; Z79.899 Other long term (current) drug therapy; Z79.52 Long term (current) use of systemic steroids
CPT/HCPCS: 96372; 99283; J0696

== ENCOUNTER 2021-12-20 21:59 | Emergency (ER) | payer OTHER ==
[2021-12-20] MEDS ORDERED: Sodium Chloride 0.9% 1000 ML 1,000 ML IV STA (22:28)
[2021-12-20] MEDS ORDERED: Hydromorphone 1 mg/ml Injection IV ONE (22:28)
[2021-12-20] MEDS ORDERED: Zofran 4 MG/2 ML VIAL IV ONE (22:28)
--- NOTE | 2021-12-20 22:49 | ERPHSYRPT ---
- History of Present Illness Time Seen by Provider: 12/20/21 22:20 Source: patient Exam Limitations: no limitations Patient Subjective Stated Complaint: pt states she has been having "female problems". state she has been lactating, having hot flashes, n/v, and headache. states her dr told her if her symptoms got worse to go the er. pt states today her headache and n/v have become worse. Triage Nursing Assessment: pt alert and oriented, answers questions approp. pt ambulatory with steady gait noted. respirations nonlabored. skin pink warm and dry. pupils equal and reactive. bilat upper and lower ext strength equal and wnl. Physician History: This is a 21-year-old overweight white female who presents with "female problems" described as nipple discharge, hot flashes and has associated headache, nausea and vomiting symptoms. She denies vaginal bleeding. She has an elevated prolactin level of 91. Patient brought this lab result to the emergency department. Patient is on antipsychotic Saphris. Patient has a history of migraine headaches but the headaches over the last few days are worsening and they are different than her typical migraine headaches. Her headaches now are in the right occipital region. Patient has a history of hypertension, anxiety issues, seasonal allergies, asthma, migraine headaches, bipolar disorder, depression, pancreatitis and peptic ulcer disease. She denies visual changes. She has no chest pain or shortness of breath. Timing/Duration: day(s) (Worsening over the last few days), worse Severity: mild (To moderate) Associated Symptoms: nausea, vomiting, No shortness of breath, No chest pain Allergies/Adverse Reactions: mirtazapine [From Remeron] Allergy (Intermediate, Verified 12/20/21 22:05) Tightness of Throat Home Medications: Metoprolol Succinate 25 mg Xl* [Toprol-Xl 25MG Tablets] 2 tab PO DAILY 03/07/19 [History] Albuterol 8 gm Mdi Hfa [Ventolin Hfa MDI] 2 puff NEB QID 11/20/19 [History] Budesonide/Formoterol Fumarate [Budesonide-Formoterol 80-4.5] 2 puffs IH BID 07/17/20 [History] Loratadine 10 mg [Claritin 10 mg] 10 mg PO DAILY 07/17/20 [History] Montelukast Sodium 10 mg [Singulair 10 MG] 10 mg PO DAILY 07/17/20 [History] Ropinirole HCl [Requip] 1 mg PO QHS 07/17/20 [History] Empagliflozin [Jardiance] 25 mg PO DAILY 11/21/21 [History] Asenapine Maleate [Saphris] 10 mg SL DAILY 12/20/21 [History] Hx Tetanus, Diphtheria Vaccination/Date Given: No Hx Influenza Vaccination/Date Given: Yes Hx Pneumococcal Vaccination/Date Given: No Immunizations Up to Date: Yes Travel Risk - International Travel Have you traveled outside of the country in past 3 weeks: No - Coronavirus Screening Are you exhibiting any of the following symptoms?: Yes Symptoms: Vomiting/Diarrhea, Headaches/Body Aches/Fatigue Close contact with a COVID-19 positive Pt in past 14-21 Days: No - Vaccine Status Have you recieved a Covid-19 vaccination: Yes 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: [employer] - Vaccination Dates Date of 2cond Vaccination (if applicable): 09/28/2020 - Review of Systems Constitutional: No Symptoms Eyes: No Symptoms Ears, Nose, & Throat: No Symptoms Respiratory: No Symptoms Cardiac: No Symptoms Abdominal/Gastrointestinal: No Symptoms Genitourinary Symptoms: No Symptoms Musculoskeletal: No Symptoms Skin: No Symptoms Neurological: Headache Psychological: No Symptoms Endocrine: Other Hematologic/Lymphatic: No Symptoms (Classes) Immunological/Allergic: No Symptoms All Other Systems: Reviewed and Negative - Past Medical History Pertinent Past Medical History: Yes Neurological History: Migraines, Other ENT History: No Pertinent History Cardiac History: No Pertinent History, Other Respiratory History: Asthma Endocrine Medical History: No Pertinent History Musculoskeletal History: No Pertinent History, Fractures GI Medical History: Pancreatitis, Ulcer, Other History: No Pertinent History Psycho-Social History: Anxiety, Bipolar, Depression, Other Female Reproductive Disorders: No Pertinent History, Other Other Medical History: Murmur and rapid heart rate. R foot fx ; pt does not recall specific bone. Bone disease, unknown. Vertigo. Ovarian cysts. neur ogenic bladder. PTSD, and borderline personality disorder - Past Surgical History Past Surgical History: Yes Neuro Surgical History: No Pertinent History Cardiac: No Pertinent History Respiratory: No Pertinent History Gastrointestinal: Other Genitourinary: No Pertinent History Musculoskeletal: Orthopedic Surgery Female Surgical History: No Pertinent History Other Surgical History: egd and colonoscopy,exploratory abd surgery, ercp. foot and shoulder surgeries - Social History Smoking Status: Never smoker Exposure to second hand smoke: Yes Drug Use: none Patient Lives Alone: No - Female History Hx Last Menstrual Period: irreg Hx Now: No - Nursing Vital Signs Nursing Vital Signs: Initial Vital Signs Temperature 97.5 F 12/20/21 22:10 Pulse Rate 100 H 12/20/21 22:10 Respiratory Rate 16 12/20/21 22:10 Blood Pressure 121/81 12/20/21 22:10 O2 Sat by Pulse Oximetry 99 12/20/21 22:10 Pain Scale Pain Intensity 4 - Physical Exam General Appearance: no apparent distress, alert, anxiety Eye Exam: PERRL/EOMI, eyes nml inspection Ears, Nose, Throat Exam: normal ENT inspection, moist mucous membranes Neck Exam: normal inspection, non-tender, supple, full range of motion Respiratory Exam: normal breath sounds, lungs clear, airway intact, No chest tenderness, No respiratory distress Cardiovascular Exam: regular rate/rhythm, normal heart sounds, normal peripheral pulses Gastrointestinal/Abdomen Exam: soft, normal bowel sounds, No tenderness Pelvic Exam: not done Rectal Exam: not done Back Exam: normal inspection, normal range of motion, No CVA tenderness, No vertebral tenderness Extremity Exam: normal inspection, normal range of motion, pelvis stable Neurologic Exam: alert, 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, cooperative, green pipefitter II-XII nml as tested, normal mood/affect, nml cerebellar function, nml station & gait, sensation nml Skin Exam: normal color, warm, dry Lymphatic Exam: No adenopathy SpO2 Interpretation: normal SpO2: 99 O2 Delivery: Room Air - Course Nursing assessment & vital signs reviewed: Yes Ordered Tests: Active Orders 24 hr Category Date Time Status IV Insertion STAT Care 12/20/21 22:28 Active HEAD WITHOUT CONTRAST [CT] Stat Exams 12/20/21 22:48 Taken CBC W DIFF Stat Lab 12/20/21 22:47 Completed CMP Stat Lab 12/20/21 22:47 Completed HCG,QUALITATIVE URINE Stat Lab 12/20/21 23:18 Completed UA W/RFX CULTURE Stat Lab 12/20/21 23:21 Completed Medication Summary Discontinued Medications Generic Name Dose Route Start Last Admin Trade Name Freq PRN Reason Stop Dose Admin Hydromorphone HCl 1 mg 12/20/21 22:28 12/20/21 23:09 Hydromorphone 1 Mg/1ml Inj 1 Mg/Ml Syringe IV 12/20/21 22:29 1 mg STAT ONE Administration Hydromorphone HCl Confirm 12/20/21 23:07 Hydromorphone 1 Mg/1ml Inj 1 Mg/Ml Syringe Administered 12/20/21 23:08 Dose 1 mg .ROUTE .STK-MED ONE Sodium Chloride 1,000 mls @ 999 mls/hr 12/20/21 22:28 12/21/21 00:30 Sodium Chloride 0.9% 1000 Ml IV 12/20/21 23:28 Infused .Q1H1M STA Infusion Sodium Chloride Confirm 12/20/21 23:07 Sodium Chloride 0.9% 1000 Ml Administered 12/20/21 23:08 Dose 1,000 mls @ ud .ROUTE .STK-MED ONE Ondansetron HCl 4 mg 12/20/21 22:28 12/20/21 23:09 Ondansetron Hcl 4 Mg/2 Ml Vial IV 12/20/21 22:29 4 mg STAT ONE Administration Ondansetron HCl Confirm 12/20/21 23:07 Ondansetron Hcl 4 Mg/2 Ml Vial Administered 12/20/21 23:08 Dose 4 mg .ROUTE .STK-MED ONE Lab/Rad Data: Laboratory Result Diagrams 12/20/21 22:47 12/20/21 22:47 Laboratory Results 12/20/21 12/20/21 12/20/21 Range/Units 23:21 23:18 23:05 WBC (4.0-10.5) x10^3/uL RBC (4.1-5.4) x10^6/uL Hgb (12.0-16.0) g/dL Hct (35-47) % MCV (78-100) fL MCH (26-32) pg MCHC (32-36) g/dL RDW (11.5-14.0) % Plt Count (150-450) x10^3/uL MPV (7.5-11.0) fL Gran % (36.0-66.0) % Immature Gran % (Auto) (0.00-0.4) % Nucleat RBC Rel Count (0.00-0.1) % Eos # (Auto) (0-0.5) x10^3/uL Immature Gran # (Auto) (0.00-0.03) x10^3u/L Absolute Lymphs (auto) (1.0-4.6) x10^3/uL Absolute Monos (auto) (0.0-1.3) x10^3/uL Absolute Nucleated RBC (0.00-0.01) x10^3u/L Lymphocytes % (24.0-44.0) % Monocytes % (0.0-12.0) % Eosinophils % (0.00-5.0) % Basophils % (0.0-0.4) % Absolute Granulocytes (1.4-6.9) x10^3/uL Basophils # (0-0.4) x10^3/uL Sodium (137-145) mmol/L Potassium (3.5-5.1) mmol/L Chloride (98-107) mmol/L Carbon Dioxide (22-30) mmol/L Anion Gap (5-15) MEQ/L BUN (7-17) mg/dL Creatinine (0.52-1.04) mg/dL Estimated GFR ML/MIN Glucose (74-106) mg/dL Calcium (8.4-10.2) mg/dL Total Bilirubin (0.2-1.3) mg/dL AST (14-36) U/L ALT (0-35) U/L Alkaline Phosphatase (38-126) U/L Serum Total Protein (6.3-8.2) g/dL Albumin (3.5-5.0) g/dL Urinalys Dipstick Clnc MAIN LAB Urine Color YELLOW (YELLOW) Urine Appearance CLEAR (CLEAR) Urine pH 6.5 (5-6) Ur Specific [place] >=1.030 (1.005-1.025) POC Urine Protein Conf NEGATIVE (Negative) Urine Ketones NEGATIVE (NEGATIVE) Urine Nitrite NEGATIVE (NEGATIVE) Urine Bilirubin NEGATIVE (NEGATIVE) Urine Urobilinogen 1 (0-1) mg/dL Urine Leukocytes NEGATIVE (NEGATIVE) Urine WBC (Auto) 0-2 (0-5) /HPF Urine RBC (Auto) 0-2 (0-2) /HPF U Epithel Cells (Auto) RARE (FEW) /HPF Urine Bacteria (Auto) NONE (NEGATIVE) /HPF Urine RBC NEGATIVE (0-5) Star/ul Urine Mucus (Auto) SLIGHT (NEGATIVE) /HPF Ur Culture Indicated? NO Urine Glucose NEGATIVE (NEGATIVE) mg/dL Urine HCG, Qual NEGATIVE (Negative) Influenza Type A Ag NEGATIVE (NEGATIVE) Influenza Type B Ag NEGATIVE (NEGATIVE) RSV (PCR) NEGATIVE (Negative) SARS-CoV-2 (PCR) NEGATIVE (NEGATIVE) 12/20/21 12/20/21 Range/Units 22:47 22:47 WBC 8.9 (4.0-10.5) x10^3/uL RBC 4.63 (4.1-5.4) x10^6/uL Hgb 13.8 (12.0-16.0) g/dL Hct 41.9 (35-47) % MCV 90.5 (78-100) fL MCH 29.8 (26-32) pg MCHC 32.9 (32-36) g/dL RDW 11.9 (11.5-14.0) % Plt Count 281 (150-450) x10^3/uL MPV 10.1 (7.5-11.0) fL Gran % 51.8 (36.0-66.0) % Immature Gran % (Auto) 0.2 (0.00-0.4) % Nucleat RBC Rel Count 0.0 (0.00-0.1) % Eos # (Auto) 0.09 (0-0.5) x10^3/uL Immature Gran # (Auto) 0.02 (0.00-0.03) x10^3u/L Absolute Lymphs (auto) 3.41 (1.0-4.6) x10^3/uL Absolute Monos (auto) 0.73 (0.0-1.3) x10^3/uL Absolute Nucleated RBC 0.00 (0.00-0.01) x10^3u/L Lymphocytes % 38.5 (24.0-44.0) % Monocytes % 8.2 (0.0-12.0) % Eosinophils % 1.0 (0.00-5.0) % Basophils % 0.3 (0.0-0.4) % Absolute Granulocytes 4.57 (1.4-6.9) x10^3/uL Basophils # 0.03 (0-0.4) x10^3/uL Sodium 138 (137-145) mmol/L Potassium 3.6 (3.5-5.1) mmol/L Chloride 104 (98-107) mmol/L Carbon Dioxide 25 (22-30) mmol/L Anion Gap 12.7 (5-15) MEQ/L BUN 6 L (7-17) mg/dL Creatinine 0.99 (0.52-1.04) mg/dL Estimated GFR > 60.0 ML/MIN Glucose 86 (74-106) mg/dL Calcium 9.0 (8.4-10.2) mg/dL Total Bilirubin 0.40 (0.2-1.3) mg/dL AST 59 H (14-36) U/L ALT 80 H (0-35) U/L Alkaline Phosphatase 148 H (38-126) U/L Serum Total Protein 7.2 (6.3-8.2) g/dL Albumin 4.0 (3.5-5.0) g/dL Urinalys Dipstick Clnc Urine Color (YELLOW) Urine Appearance (CLEAR) Urine pH (5-6) Ur Specific [place] (1.005-1.025) POC Urine Protein Conf (Negative) Urine Ketones (NEGATIVE) Urine Nitrite (NEGATIVE) Urine Bilirubin (NEGATIVE) Urine Urobilinogen (0-1) mg/dL Urine Leukocytes (NEGATIVE) Urine WBC (Auto) (0-5) /HPF Urine RBC (Auto) (0-2) /HPF U Epithel Cells (Auto) (FEW) /HPF Urine Bacteria (Auto) (NEGATIVE) /HPF Urine RBC (0-5) Satr/ul Urine Mucus (Auto) (NEGATIVE) /HPF Ur Culture Indicated? Urine Glucose (NEGATIVE) mg/dL Urine HCG, Qual (Negative) Influenza Type A Ag (NEGATIVE) Influenza Type B Ag (NEGATIVE) RSV (PCR) (Negative) SARS-CoV-2 (PCR) (NEGATIVE) - Progress Progress: improved, pain not gone completely, re-examined Progress Note: 12/20/21 23:36 This patient has hyperprolactinemia. Patient presents with a lab result showing a significantly elevated prolactin level. I checked with the house steward/stewardess and there is no bromocriptine or other prolactin blocking agent in our facility. I will write for bromocriptine as an outpatient. I will start with the lowest level and this patient will start taking this tomorrow after she fills her prescription. She is also told to follow-up with Dr. Sharma and her primary doctor tomorrow morning to make arrangements for further evaluation and management. 12/21/21 00:34 CAT scan of the head without contrast shows no acute intracranial abnormality. There is no evidence of any tumors visible on this study. Medical decision making: This patient is having symptoms of hyperprolactinemia. I will start her on the low-dose bromocriptine. She is to call her candy spreader helper and primary care doctor later this morning for further evaluation and management. Patient states that she is feeling much better. Her nausea is under better control as is her pain. 12/21/21 00:35 Counseled pt/family regarding: lab results, diagnosis, need for follow-up, rad results - Departure Departure Disposition: Home Clinical Impression: Hyperprolactinemia Condition: Stable Critical Care Time: No Referrals: LYNETTE DOHERTY [Primary Care Provider] - Follow up/PCP as directed Additional Instructions: Take your medication as prescribed. Follow-up with Dr. Sharma and your primary prescribing provider at 8:30 AM on 12/21/2021 to make arrangements for further evaluation and management. Prescriptions: Ondansetron ODT 4 MG [Zofran Odt 4 mg] 4 mg PO Q6H PRN PRN #10 tablet PRN Reason: Vomiting
[2021-12-20 22:50] LABS: Absolute Neutrophil Ct (ANC) 4.57 x10^3/uL (1.4-6.9); Basophil (Absolute #) 0.03 x10^3/uL (0-0.4); Eosinophil (Absolute #) 0.09 x10^3/uL (0-0.5); Hematocrit 41.9 % (35-47); Hemoglobin 13.8 g/dL (12.0-16.0); Lymphocyte (Absolute #) 3.41 x10^3/uL (1.0-4.6); Lymphocytes % 38.5 % (24.0-44.0); Mean Cell Volume 90.5 fL (78-100); Mean Corpuscular Hemoglobin 29.8 pg (26-32); Mean Corpuscular Hgb Concent. 32.9 g/dL (32-36); Mean Platelet Volume 10.1 fL (7.5-11.0); Monocyte (Absolute #) 0.73 x10^3/uL (0.0-1.3); Monocytes % 8.2 % (0.0-12.0); Neutrophil % 51.8 % (36.0-66.0); Platelet Count 281 x10^3/uL (150-450); Red Blood Count 4.63 x10^6/uL (4.1-5.4); Red Cell Distribution Width 11.9 % (11.5-14.0); White Blood Count 8.9 x10^3/uL (4.0-10.5)
[2021-12-20 23:01] LABS: ALKALINE PHOSPHATASE 148 U/L (38-126); ANION GAP 12.7 MEQ/L (5-15); BLOOD UREA NITROGEN 6 mg/dL (7-17); CHLORIDE 104 mmol/L (98-107); Carbon Dioxide 25 mmol/L (22-30); Creatinine 1 0.99 mg/dL (0.52-1.04); EST GLOMERULAR FILTRATION RATE > 60.0 ML/MIN; Glucose 86 mg/dL (74-106); Potassium 3.6 mmol/L (3.5-5.1); SGOT/AST 59 U/L (14-36); SGPT/ALT 80 U/L (0-35); SODIUM 138 mmol/L (137-145); Total Protein 7.2 g/dL (6.3-8.2)
[2021-12-20] MEDS ORDERED: Hydromorphone 1 mg/ml Injection ONE (23:07)
[2021-12-20] MEDS ORDERED: Sodium Chloride 0.9% 1000 ML 1,000 ML ONE (23:07)
[2021-12-20] MEDS ORDERED: Zofran 4 MG/2 ML VIAL ONE (23:07)
[2021-12-20 23:32] LABS: Appearance CLEAR (CLEAR); Bilirubin NEGATIVE (NEGATIVE); Dipstick done @ ? MAIN LAB; Glucose NEGATIVE (NEGATIVE); Ketones NEGATIVE (NEGATIVE); Nitrite NEGATIVE (NEGATIVE); Ph 6.5 (5-6); Protein,Urine Dip NEGATIVE (Negative); RBC NEGATIVE Ery/ul (0-5); Specific Gravity >=1.030 (1.005-1.025); Urobilinogen 1 mg/dL (0-1)
[2021-12-20 23:35] LABS: Epithelial Cells RARE /HPF (FEW); Mucus SLIGHT /HPF (NEGATIVE); RBC 0-2 /HPF (0-2); Urine Cultured Indicated? NO; WBC 0-2 /HPF (0-5)
[2021-12-20 23:43] LABS: INFLUENZA A NEGATIVE (NEGATIVE); INFLUENZA B NEGATIVE (NEGATIVE); RESPIRATORY SYNCTIAL VIRUS NEGATIVE (Negative); SARS-CoV-2 Xpert Express NEGATIVE (NEGATIVE)
[2021-12-21 00:21] VITALS: BP 116/81; PULSE 91
[2021-12-21 00:36] VITALS: O2SAT 99
--- NOTE | 2021-12-21 08:38 | XRAY ---
Indication: Posterior headache. Multiple contiguous axial images obtained through the head without contrast. Comparison: October 18, 2018. Normal appearing brain parenchyma, ventricles, and bony calvarium. There is now near complete opacification of the right maxillary sinus. Remaining visualized paranasal sinuses and mastoid air cells are clear. Impression: New right maxillary sinus disease. Remaining CT head without contrast exam is normal. Comment: Preliminary interpretation made by [facility]. No critical discrepancy.
== END 2021-12-21 00:50 | disposition home or self-care (01) ==
LOC: ED 21:59
DX: E22.1 Hyperprolactinemia (principal); N64.52 Nipple discharge; R51.9 Headache, unspecified; R11.2 Nausea with vomiting, unspecified; Z79.899 Other long term (current) drug therapy
CPT/HCPCS: 0241U; 36000; 36415; 70450; 80053; 81015; 81025; 84146; 85025; 96360; 96361; 96374; 96375; 99284; J1170; J2405

== ENCOUNTER 2022-01-14 08:42 | Emergency (ER) | payer OTHER ==
[2022-01-14] MEDS ORDERED: Zofran 4 MG/2 ML VIAL IV ONE (08:53)
[2022-01-14] MEDS ORDERED: Sodium Chloride 0.9% 1000 ML 1,000 ML IV STA (08:53)
[2022-01-14] MEDS ORDERED: PROTONIX 40 MG IV IV ONE ×2 (08:53→08:59)
--- NOTE | 2022-01-14 08:58 | ERPHSYRPT ---
- History of Present Illness Time Seen by Provider: 01/14/22 08:55 Historian: patient Exam Limitations: no limitations Patient Subjective Stated Complaint: PT states "I have been vomiting for two days and I went to quick care this morning because my chest started to hurt." Triage Nursing Assessment: Pt presented alert and oriented X 3, skin pwd Pt ambulates with an upright steady gait, able to speak in clear full sentences. Pt resting comfortably on the bed. Physician History: Patient is 21-year-old female with significant past medical history of pancreatitis and pleurisy started having a chest pain and epigastric pain associated with nausea and vomiting since 2 days. She denies any blood in the stool or urine. She denies any shortness of breath. Patient states that her menstrual period is very irregular. Timing/Duration: day(s) (two days) Abdominal Pain Onset Location: epigastric Pain Radiation: no radiation Severity of Pain-Max: mild Severity of Pain-Current: mild Modifying Factors: Improves With: nothing Associated Symptoms: heartburn, nausea, vomiting Previous symptoms: same symptoms as today Allergies/Adverse Reactions: mirtazapine [From Remeron] Allergy (Intermediate, Verified 12/20/21 22:05) Tightness of Throat Home Medications: Metoprolol Succinate 25 mg Xl* [Toprol-Xl 25MG Tablets] 2 tab PO DAILY 03/07/19 [History] Albuterol 8 gm Mdi Hfa [Ventolin Hfa MDI] 2 puff NEB QID 11/20/19 [History] Budesonide/Formoterol Fumarate [Budesonide-Formoterol 80-4.5] 2 puffs IH BID 07/17/20 [History] Loratadine 10 mg [Claritin 10 mg] 10 mg PO DAILY 07/17/20 [History] Montelukast Sodium 10 mg [Singulair 10 MG] 10 mg PO DAILY 07/17/20 [History] Ropinirole HCl [Requip] 1 mg PO QHS 07/17/20 [History] Empagliflozin [Jardiance] 25 mg PO DAILY 11/21/21 [History] Furosemide 20 mg [Lasix 20 mg] 20 mg PO DAILY 01/14/22 [History] Hx Tetanus, Diphtheria Vaccination/Date Given: No Hx Influenza Vaccination/Date Given: Yes Hx Pneumococcal Vaccination/Date Given: No Immunizations Up to Date: Yes Travel Risk - International Travel Have you traveled outside of the country in past 3 weeks: No - Coronavirus Screening Are you exhibiting any of the following symptoms?: Yes Symptoms: Vomiting/Diarrhea Close contact with a COVID-19 positive Pt in past 14-21 Days: No - Vaccine Status Have you recieved a Covid-19 vaccination: Yes Tallow Maker: Purplu - Vaccination Dates Date of 2cond Vaccination (if applicable): 09/28/2020 - Review of Systems Constitutional: No Fever, No Chills Eyes: No Symptoms Ears, Nose, & Throat: No Symptoms Respiratory: No Cough, No Dyspnea Cardiac: No Chest Pain, No Edema, No Syncope Abdominal/Gastrointestinal: Abdominal Pain, Nausea, Vomiting, No Diarrhea Genitourinary Symptoms: No Dysuria Musculoskeletal: No Back Pain, No Neck Pain Skin: No Rash Neurological: No Dizziness, No Focal Weakness, No Sensory Changes Psychological: No Symptoms Endocrine: No Symptoms All Other Systems: Reviewed and Negative - Past Medical History Pertinent Past Medical History: Yes Neurological History: Migraines, Other ENT History: No Pertinent History Cardiac History: No Pertinent History, Other Respiratory History: Asthma Endocrine Medical History: No Pertinent History Musculoskeletal History: No Pertinent History, Fractures GI Medical History: Pancreatitis, Ulcer, Other History: No Pertinent History Psycho-Social History: Anxiety, Bipolar, Depression, Other Female Reproductive Disorders: No Pertinent History, Other Other Medical History: Murmur and rapid heart rate. R foot fx ; pt does not recall specific bone. Bone disease, unknown. Vertigo. Ovarian cysts. neurogenic bladder. PTSD, and borderline personality disorder - Past Surgical History Past Surgical History: Yes Neuro Surgical History: No Pertinent History Cardiac: No Pertinent History Respiratory: No Pertinent History Gastrointestinal: Other Genitourinary: No Pertinent History Musculoskeletal: Orthopedic Surgery Female Surgical History: No Pertinent History Other Surgical History: egd and colonoscopy,exploratory abd surgery, ercp. foot and shoulder surgeries - Social History Smoking Status: Never smoker Exposure to second hand smoke: Yes Drug Use: none Patient Lives Alone: No - Female History Hx Last Menstrual Period: 01/04/2022 Hx Now: No - Nursing Vital Signs Nursing Vital Signs: Initial Vital Signs Temperature 97.2 F 01/14/22 08:42 Pulse Rate 98 H 01/14/22 08:42 Respiratory Rate 20 07/30/22 08:42 Blood Pressure 143/85 01/14/22 08:42 O2 Sat by Pulse Oximetry 98 01/14/22 08:42 Pain Scale Pain Intensity 3 - Physical Exam General Appearance: no apparent distress, alert Eye Exam: PERRL/EOMI, eyes nml inspection Ears, Nose, Throat Exam: normal ENT inspection, pharynx normal, moist mucous membranes Neck Exam: normal inspection, non-tender, supple, full range of motion Respiratory Exam: normal breath sounds, lungs clear, No respiratory distress Cardiovascular Exam: regular rate/rhythm, normal heart sounds Gastrointestinal/Abdomen Exam: soft, No tenderness, No mass Back Exam: normal inspection, normal range of motion, No CVA tenderness, No vertebral tenderness Extremity Exam: normal inspection, normal range of motion, pelvis stable Neurologic Exam: alert, 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, cooperative, normal mood/affect, nml cerebellar function, sensation nml, No motor deficits Skin Exam: normal color, warm, dry SpO2: 98 - Course Nursing assessment & vital signs reviewed: Yes Ordered Tests: Active Orders 24 hr Category Date Time Status EKG-ER Only STAT Care 01/14/22 08:53 Active AMYLASE Stat Lab 01/14/22 09:07 Completed CBC W DIFF Stat Lab 01/14/22 09:07 Completed CMP Stat Lab 01/14/22 09:07 Completed HCG QUALITATIVE,SERUM Stat Lab 01/14/22 09:07 Completed LIPASE Stat Lab 01/14/22 09:07 Completed TROPONIN Stat Lab 01/14/22 09:07 Completed UA W/RFX CULTURE Stat Lab 01/14/22 09:41 Completed Medication Summary Discontinued Medications Generic Name Dose Route Start Last Admin Trade Name Reynaldo PRN Reason Stop Dose Admin Sodium Chloride 1,000 mls @ 999 mls/hr 01/14/22 08:53 01/14/22 09:00 Sodium Chloride 0.9% 1000 Ml IV 01/14/22 09:53 999 mls/hr .Q1H1M STA Administration Sodium Chloride Confirm 01/14/22 08:59 Sodium Chloride 0.9% 1000 Ml Administered 01/14/22 09:00 Dose 1,000 mls @ ud .ROUTE .STK-MED ONE Ondansetron HCl 4 mg 01/14/22 08:53 01/14/22 09:00 Ondansetron Hcl 4 Mg/2 Ml Vial IV 01/14/22 08:54 4 mg STAT ONE Administration Ondansetron HCl Confirm 01/14/22 08:59 Ondansetron Hcl 4 Mg/2 Ml Vial Administered 01/14/22 09:00 Dose 4 mg .ROUTE .STK-MED ONE Pantoprazole Sodium 40 mg 01/14/22 08:53 01/14/22 09:00 Pantoprazole 40 Mg Vial IV 01/14/22 08:54 40 mg STAT ONE Administration Pantoprazole Sodium Confirm 01/14/22 08:59 Pantoprazole 40 Mg Vial Administered 01/14/22 09:00 Dose 40 mg IV .STK-MED ONE Lab/Rad Data: Laboratory Result Diagrams 01/14/22 09:07 01/14/22 09:07 Laboratory Results 01/14/22 01/14/22 01/14/22 Range/Units 09:41 09:07 09:07 WBC (4.0-10.5) x10^3/uL RBC (4.1-5.4) x10^6/uL Hgb (12.0-16.0) g/dL Hct (35-47) % MCV (78-100) fL MCH (26-32) pg MCHC (32-36) g/dL RDW (11.5-14.0) % Plt Count (150-450) x10^3/uL MPV (7.5-11.0) fL Gran % (36.0-66.0) % Immature Gran % (Auto) (0.00-0.4) % Nucleat RBC Rel Count (0.00-0.1) % Eos # (Auto) (0-0.5) x10^3/uL Immature Gran # (Auto) (0.00-0.03) x10^3u/L Absolute Lymphs (auto) (1.0-4.6) x10^3/uL Absolute Monos (auto) (0.0-1.3) x10^3/uL Absolute Nucleated RBC (0.00-0.01) x10^3u/L Lymphocytes % (24.0-44.0) % Monocytes % (0.0-12.0) % Eosinophils % (0.00-5.0) % Basophils % (0.0-0.4) % Absolute Granulocytes (1.4-6.9) x10^3/uL Basophils # (0-0.4) x10^3/uL Sodium 137 (137-145) mmol/L Potassium 3.8 (3.5-5.1) mmol/L Chloride 104 (98-107) mmol/L Carbon Dioxide 22 (22-30) mmol/L Anion Gap 15.3 H (5-15) MEQ/L BUN 11 (7-17) mg/dL Creatinine 0.88 (0.52-1.04) mg/dL Estimated GFR > 60.0 ML/MIN Glucose 113 H (74-106) mg/dL Calcium 9.4 (8.4-10.2) mg/dL Total Bilirubin 0.40 (0.2-1.3) mg/dL AST 42 H (14-36) U/L ALT 60 H (0-35) U/L Alkaline Phosphatase 212 H (38-126) U/L Troponin I < 0.012 (0.000-0.034) ng/mL Serum Total Protein 8.0 (6.3-8.2) g/dL Albumin 4.3 (3.5-5.0) g/dL Amylase 114 H (30-110) U/L Lipase 95 (23-300) U/L Serum , Qual NEGATIVE (Negative) Urinalys Dipstick Clnc MAIN LAB Urine Color YELLOW (YELLOW) Urine Appearance SLIGHTLY CLOUDY (CLEAR) Urine pH 5.5 (5-6) Ur Specific [place] >=1.030 (1.005-1.025) POC Urine Protein Conf NEGATIVE (Negative) Urine Ketones NEGATIVE (NEGATIVE) Urine Nitrite NEGATIVE (NEGATIVE) Urine Bilirubin NEGATIVE (NEGATIVE) Urine Urobilinogen 0.2 (0-1) mg/dL Urine Leukocytes NEGATIVE (NEGATIVE) Urine WBC (Auto) 3-5 (0-5) /HPF Urine RBC (Auto) 0-2 (0-2) /HPF U Hyaline Cast (Auto) 0-2 (0-2) /LPF U Epithel Cells (Auto) RARE (FEW) /HPF Urine Bacteria (Auto) RARE (NEGATIVE) /HPF Urine RBC TRACE-LYSED (0-5) Star/ul Urine Mucus (Auto) SLIGHT (NEGATIVE) /HPF Ur Culture Indicated? NO Urine Glucose 500 (NEGATIVE) mg/dL 01/14/22 Range/Units 09:07 WBC 10.1 (4.0-10.5) x10^3/uL RBC 4.96 (4.1-5.4) x10^6/uL Hgb 14.6 (12.0-16.0) g/dL Hct 45.0 (35-47) % MCV 90.7 (78-100) fL MCH 29.4 (26-32) pg MCHC 32.4 (32-36) g/dL RDW 11.9 (11.5-14.0) % Plt Count 311 (150-450) x10^3/uL MPV 10.1 (7.5-11.0) fL Gran % 65.4 (36.0-66.0) % Immature Gran % (Auto) 0.4 (0.00-0.4) % Nucleat RBC Rel Count 0.0 (0.00-0.1) % Eos # (Auto) 0.10 (0-0.5) x10^3/uL Immature Gran # (Auto) 0.04 H (0.00-0.03) x10^3u/L Absolute Lymphs (auto) 2.65 (1.0-4.6) x10^3/uL Absolute Monos (auto) 0.67 (0.0-1.3) x10^3/uL Absolute Nucleated RBC 0.00 (0.00-0.01) x10^3u/L Lymphocytes % 26.2 (24.0-44.0) % Monocytes % 6.6 (0.0-12.0) % Eosinophils % 1.0 (0.00-5.0) % Basophils % 0.4 (0.0-0.4) % Absolute Granulocytes 6.60 (1.4-6.9) x10^3/uL Basophils # 0.04 (0-0.4) x10^3/uL Sodium (137-145) mmol/L Potassium (3.5-5.1) mmol/L Chloride (98-107) mmol/L Carbon Dioxide (22-30) mmol/L Anion Gap (5-15) MEQ/L BUN (7-17) mg/dL Creatinine (0.52-1.04) mg/dL Estimated GFR ML/MIN Glucose (74-106) mg/dL Calcium (8.4-10.2) mg/dL Total Bilirubin (0.2-1.3) mg/dL AST (14-36) U/L ALT (0-35) U/L Alkaline Phosphatase (38-126) U/L Troponin I (0.000-0.034) ng/mL Serum Total Protein (6.3-8.2) g/dL Albumin (3.5-5.0) g/dL Amylase (30-110) U/L Lipase (23-300) U/L Serum , Qual (Negative) Urinalys Dipstick Clnc Urine Color (YELLOW) Urine Appearance (CLEAR) Urine pH (5-6) Ur Specific [place] (1.005-1.025) POC Urine Protein Conf (Negative) Urine Ketones (NEGATIVE) Urine Nitrite (NEGATIVE) Urine Bilirubin (NEGATIVE) Urine Urobilinogen (0-1) mg/dL Urine Leukocytes (NEGATIVE) Urine WBC (Auto) (0-5) /HPF Urine RBC (Auto) (0-2) /HPF U Hyaline Cast (Auto) (0-2) /LPF U Epithel Cells (Auto) (FEW) /HPF Urine Bacteria (Auto) (NEGATIVE) /HPF Urine RBC (0-5) Star/ul Urine Mucus (Auto) (NEGATIVE) /HPF Ur Culture Indicated? Urine Glucose (NEGATIVE) mg/dL - Progress Progress: improved Counseled pt/family regarding: lab results, diagnosis, need for follow-up - Departure Departure Disposition: Home Clinical Impression: Mild dehydration Vomiting Qualifiers: Vomiting type: unspecified Nausea presence: with nausea Qualified Code(s): R11.2 - Nausea with vomiting, unspecified GERD (gastroesophageal reflux disease) Qualifiers: Esophagitis presence: with esophagitis Esophagitis bleeding: without hemorrhage Qualified Code(s): K21.00 - Gastro-esophageal reflux disease with esophagitis, without bleeding Condition: Stable Critical Care Time: No Referrals: LYNETTE DOHERTY [Primary Care Provider] - Follow Up with PCP/3 days Instructions: Gastritis Additional Instructions: Discharge/Care Plan FLAVIA OSORIO was seen on 01/14/22 in the Emergency Room. The patient was counseled regarding Diagnosis,Lab results, Imaging studies, need for follow up and when to return to the Emergency Room. Prescriptions given: Discharge Note I have spoken with the patient and/or caregivers. I have explained the patient's condition, diagnosis and treatment plan based on the information available to me at this time. I have answered the patient's and/or caregiver's questions and addressed any concerns. The patient and/or caregivers have as good understanding of the patient's diagnosis, condition and treatment plan as can be expected at this point. The vital signs have been stable. The patient's condition is stable and appropriate for discharge from the emergency department. The patient will pursue further outpatient evaluation with the primary care physician or other designated or consulting physician as outlined in the discharge instructions. The patient and/or caregivers are agreeable to this plan of care and follow-up instructions have been explained in detail. The patient and/or caregivers have received these instruction. The patient/and or caregivers are aware that any significant change in condition or worsening of symptoms should prompt an immediate return to this or the closest emergency department or call 911. FLAVIA OSORIO was seen on 01/14/22 n the Emergency Room. At that time you were treated for an emergent condition, during your visit Laboratory, Radiology and/or other procedures may have been ordered. It is very important that you follow-up with your Primary Care Physician LYNETTE DOHERTY within the next 24-48 hours to review your Emergency Room visit and the final results of testing that was ordered. Some test results such as Urine Cultures, Blood Cultures, and other cultures if ordered will not be finalized for 24-48 hours. If you do not have a Primary Care Provider please call the medical records department at [phone] ext [phone] to obtain a copy of your results or you may sign into our patient portal to obtain these results by visiting us @ [email or web address] and completing the following steps: 1. Click on the Patient Portal link 2. Click the Patient Self Enrollment Link to complete the enrollment form and entering your 3. Once the enrollment form is completed you will receive an email with a temporary ID and password at the email address you provided. 4. Next choose a user name and password. Your user name must be at least 4 characters long and your password must be at least 4 characters long. 5. Choose a security question from the list and provide your answer to the question. If you already have signed into the Health Portal you may access your Health Care Information 08/01 by the following steps: 1. Login to our website @ [email or web address] 2. Enter your original user name and password. FAQS The [facility] Health Portal is an online tool that contains your Lab Results, Radiology Reports, Visit History, Discharge Instructions and Health Summary Lab and Radiology Results will not be available for 72 hours on the portal. The Portal is a secure site, passwords are encryted and URLs are re-written so they cannot be copied and pasted. You and authorized family members are the only ones who can access your Portal. Also there is a timeout feature that protects your information if you leave the Portal page open. If you have technical difficulty please use the Contact Us link on the page this will allow you to submit any questions you have regarding the Portal or you may contact the Medical Record Department at [phone]. Prescriptions: Prochlorperazine Maleate 5 mg* [Compazine 5 MG] 5 mg PO TID #15 tablet PANTOPRAZOLE 40 mg Tablet [Protonix 40MG Tablet] 40 mg PO QPM #15 tab
[2022-01-14] MEDS ORDERED: Zofran 4 MG/2 ML VIAL ONE (08:59)
[2022-01-14] MEDS ORDERED: Sodium Chloride 0.9% 1000 ML 1,000 ML ONE (08:59)
[2022-01-14 09:20] LABS: Basophil (Absolute #) 0.04 x10^3/uL (0-0.4); Hemoglobin 14.6 g/dL (12.0-16.0); Lymphocyte (Absolute #) 2.65 x10^3/uL (1.0-4.6); Lymphocytes % 26.2 % (24.0-44.0); Mean Cell Volume 90.7 fL (78-100); Mean Corpuscular Hemoglobin 29.4 pg (26-32); Mean Corpuscular Hgb Concent. 32.4 g/dL (32-36); Mean Platelet Volume 10.1 fL (7.5-11.0); Monocyte (Absolute #) 0.67 x10^3/uL (0.0-1.3); Monocytes % 6.6 % (0.0-12.0); Neutrophil % 65.4 % (36.0-66.0); Platelet Count 311 x10^3/uL (150-450); Red Blood Count 4.96 x10^6/uL (4.1-5.4); Red Cell Distribution Width 11.9 % (11.5-14.0); White Blood Count 10.1 x10^3/uL (4.0-10.5)
[2022-01-14 09:37] LABS: ALBUMIN 4.3 g/dL (3.5-5.0); ALKALINE PHOSPHATASE 212 U/L (38-126); AMYLASE 114 U/L (30-110); ANION GAP 15.3 MEQ/L (5-15); BLOOD UREA NITROGEN 11 mg/dL (7-17); CHLORIDE 104 mmol/L (98-107); Calcium 9.4 mg/dL (8.4-10.2); Carbon Dioxide 22 mmol/L (22-30); Creatinine 1 0.88 mg/dL (0.52-1.04); EST GLOMERULAR FILTRATION RATE > 60.0 ML/MIN; Glucose 113 mg/dL (74-106); LIPASE 95 U/L (23-300); Potassium 3.8 mmol/L (3.5-5.1); SGOT/AST 42 U/L (14-36); SGPT/ALT 60 U/L (0-35); SODIUM 137 mmol/L (137-145); TROPONIN < 0.012 ng/mL (0.000-0.034)
[2022-01-14 09:49] LABS: Bacteria RARE /HPF (NEGATIVE); Epithelial Cells RARE /HPF (FEW); Hyaline Casts 0-2 /LPF (0-2); Mucus SLIGHT /HPF (NEGATIVE); RBC 0-2 /HPF (0-2)
[2022-01-14 09:52] LABS: Urine Cultured Indicated? NO
[2022-01-14 09:53] LABS: Appearance SLIGHTLY CLOUDY (CLEAR); Bilirubin NEGATIVE (NEGATIVE); Glucose 500 mg/dL (NEGATIVE); Ketones NEGATIVE (NEGATIVE); Nitrite NEGATIVE (NEGATIVE); Ph 5.5 (5-6); Protein,Urine Dip NEGATIVE (Negative); RBC TRACE-LYSED Ery/ul (0-5); Specific Gravity >=1.030 (1.005-1.025); Urobilinogen 0.2 mg/dL (0-1)
[2022-01-14 09:54] LABS: Dipstick done @ ? MAIN LAB
[2022-01-14 10:04] VITALS: O2SAT 98
[2022-01-14 10:05] VITALS: BP 129/76; PULSE 88
[2022-01-14 10:40] LABS: INFLUENZA A NEGATIVE (NEGATIVE); INFLUENZA B NEGATIVE (NEGATIVE); RESPIRATORY SYNCTIAL VIRUS NEGATIVE (Negative); SARS-CoV-2 Xpert Express NEGATIVE (NEGATIVE)
== END 2022-01-14 11:00 | disposition home or self-care (01) ==
LOC: ED 08:42
DX: K21.00 Gastro-esophageal reflux disease with esophagitis, without bleeding (principal); R11.2 Nausea with vomiting, unspecified; E86.0 Dehydration; R07.9 Chest pain, unspecified; R10.13 Epigastric pain; Z79.899 Other long term (current) drug therapy
CPT/HCPCS: 0241U; 36000; 36415; 80053; 81015; 82150; 83690; 84484; 84703; 85025; 93005; 96360; 96374; 96375; 99284; J2405

== ENCOUNTER 2022-02-17 06:41 | Day surgery (SDC) | payer OTHER ==
[~2022-02-17 06:41] MED LIST: Lactated Ringers 1,000 ML IV ONE; XYLOCAINE 1% HCL 20 ML MDV ONE
[2022-02-17] MEDS ORDERED: Marcaine Mpf 0.5% Vial 30 Ml IJ ONE (06:42)
[2022-02-17] MEDS ORDERED: CEFAZOLIN 2 GM-D5W BAG** 2 GM/50 ML ML IV SCH (07:30)
[2022-02-17] MEDS ORDERED: Lactated Ringers 1,000 ML IV SCH (07:30)
[2022-02-17] MEDS ORDERED: Lactated Ringers 1,000 ML IV ONE (07:39)
[2022-02-17] MEDS ORDERED: CEFAZOLIN 2 GM-D5W BAG** 2 GM/50 ML ML IV ONE (08:04)
[2022-02-17 08:33] LABS: ALBUMIN 4.3 g/dL (3.5-5.0); ALKALINE PHOSPHATASE 156 U/L (38-126); ANION GAP 15.3 MEQ/L (5-15); BLOOD UREA NITROGEN 11 mg/dL (7-17); CHLORIDE 105 mmol/L (98-107); Calcium 8.8 mg/dL (8.4-10.2); Carbon Dioxide 20 mmol/L (22-30); Creatinine 1 0.74 mg/dL (0.52-1.04); EST GLOMERULAR FILTRATION RATE > 60.0 ML/MIN; Glucose 106 mg/dL (74-106); Potassium 4.1 mmol/L (3.5-5.1); SGOT/AST 48 U/L (14-36); SGPT/ALT 58 U/L (0-35); SODIUM 137 mmol/L (137-145); Total Protein 7.5 g/dL (6.3-8.2)
[2022-02-17] MEDS ORDERED: BRIDION 200MG/2ML IV ONE (10:15)
[2022-02-17] MEDS ORDERED: Zofran 4 MG/2 ML VIAL ONE (10:15)
[2022-02-17] MEDS ORDERED: Decadron 4 MG INJ ONE (10:15)
[2022-02-17] MEDS ORDERED: DIPRIVAN 200 MG/20 ML IV ONE (10:15)
[2022-02-17] MEDS ORDERED: SUBLIMAZE 100 MCG/2 ML ONE ×2 (10:16→12:53)
[2022-02-17] MEDS ORDERED: TORAdol 30 mg Injection ONE (10:16)
[2022-02-17] MEDS ORDERED: Xylocaine-Mpf 2% 5 Ml Vial ONE (10:16)
[2022-02-17] MEDS ORDERED: PHENYLEPHRINE HCL ONE (11:17)
[2022-02-17] MEDS ORDERED: LOPRESSOR INJECTION IV ONE (11:34)
--- NOTE | 2022-02-17 13:00 | XRAY ---
Indication: Right foot arthroplasty. Intraoperative fluoroscopy provided for 15 seconds. 8 digital spot images submitted for interpretation demonstrates 2nd/4th metatarsal head osteotomy screws. Shortened 3rd metatarsal with mid shaft screw and proximal/distal radiopacities unchanged with respect to radiograph November 30, 2021. Correlate with intraoperative findings/report.
[2022-02-17 14:29] VITALS: BP 124/73; PULSE 90; O2SAT 96
--- NOTE | 2022-02-17 22:38 | XRAY ---
15 seconds of fluoroscopy was used in surgery for a right foot arthroplasty.
--- NOTE | 2022-02-21 08:58 | OP ---
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 4) Effusion of lesser metatarsophalangeal joint. 5) Capsulitis of metatarsophalangeal joint right foot. 6) Metatarsalgia. 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 4) Effusion of lesser metatarsophalangeal joint. 5) Capsulitis of metatarsophalangeal joint right foot. 6) Metatarsalgia. PROCEDURES: 1) Emeka osteotomy metatarsals 2 and 4. 2) Partial metatarsal head resection. 3) Application interpositional allograft. SURGEON: Spike Galdamez DPM. ANIMAL CRUELTY INVESTIGATION SUPERVISOR: None. ANESTHESIA: General plus a postoperative ankle block consisting of 30 cc 1:1 mixture of 1% lidocaine plain and 0.5% bupivacaine plain injected in an ankle block-type fashion. ESTIMATED BLOOD LOSS: Less than 5 cc. MATERIALS: Monica 2.0 headed partially threaded screws for Emeka osteotomy, interpositional graft, cup and conical reamers, 4-0 Monocryl and 3-0 Nylon. INJECTABLES: 30 cc of 1:1 mixture of 1% lidocaine plain and 0.5% bupivacaine plain. 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 Contreras approximately one year ago. The patient had a single staged graft application with application of an external fixator that stayed on for approximately 60 days on patient's recollection. This was primarily successful in getting the length. However, the toe remains short and the patient does have a significant amount of pain at the metatarsophalangeal joint. Conservative options were exhausted with this patient and she did actually have some good short term success with injection in metatarsal pad. The patient was offered options of continuing with conservative care. However given that she is 22 years old the potential for breakdown of the metatarsophalangeal joint was discussed which appears to have been already occurring based on crepitation on range of motion within the joint and a significant amount of pain. The patient also does have a crossover digit of the fourth over the third due to its planter flexed nature and this does have an irrigating effect on her. Looking at it actually she does have a very abnormal metatarsal parabola with extremely elongated second metatarsal relative to the third and fourth. The patient's options were discussed with the patient and she wishes to proceed with surgical intervention. It was highly stressed with the patient that the goal is to reduce her pain more than to correct the cosmetic appearance although both of them would be the utmost importance with correction. However, no guarantees were provided as to the outcome. The patient was made aware of possible complications consisting of infection, hematoma, seroma, possible skin nonhealing, delayed healing, delayed bone healing and potential for nonbone healing, a situation called nonunion. There is also a higher potential for the rejection of the graft and increased pain this would require further surgical intervention for removal of said graft. The patient understands all of these risks and wishes to proceed. She and her mother have had plenty of time to ask questions which were answered to the patients and her mother's apparent satisfaction. It is with that we decided to proceed. DESCRIPTION OF PROCEDURE AND FINDINGS: The patient was brought into the OR and placed on the OR table in the supine position. At this time an ankle tourniquet was applied to the right ankle. General anesthesia was administered until the patient was sedated. The right foot was prepped and draped in the typical sterile fashion and lowered onto the surgical field. At this time attention was directed to the dorsal aspect of the third metatarsal where the previous Surgiclips were noted from her lengthening of the metatarsal. At this time incision was deepened through the skin and very careful dissection was carried out through the scar tissue making sure not to damage any neurovascular structures along the way. The extensor digitorum longus was identified and a re-lengthening was performed and gently retracted out of the way. At this time the metatarsal head was identified. The reason for the crepitation was an osteochondral cyst at the metatarsal head with a depth of approximately 3 mm. Cup and conical reamers were utilized to remove the cartilage and the subchondral plate from this metatarsophalangeal joint after releasing the medial and lateral collateral ligaments using McGlamry to elevate the metatarsal soft tissues off of the plantar surface. Once the head was denuded, a dermal graft allograft, 2.4 mm drill was utilized at the dorsal aspect of the joint line and suture passers were utilized to pull suture loops that were attached to allograft through the plantar aspect of the joint to the dorsal aspect of the joint. Once secured on the plantar aspect of the joint, a Greg needle was utilized to pass the fiber tape through the dorsal aspect and these were tied off in a snug-type fashion. The graft then was contoured to the shape of the metatarsal this was checked under fluoroscopic guidance and deemed to be adequate. This did increase the length of the joint improving the overall appearance. On the AP view, the metatarsal parabola was still largely skewed. Because of this we decided to proceed with a second metatarsal Emeka osteotomy which was fixated with a 12 mm 2.0 cannulated headed and partially threaded Monica screw. The same procedure was carried out over the dorsal aspect of the fourth metatarsal with extensor tendon lengthening. Decision was made to forego correcting the hammer toes as following the lengthening of the extensor tendon, the arthroplasty and the Emeka, the positioning of the toes looked significantly more natural than they did before and they were sitting within the same plane. At this time copious amounts of sterile saline were utilized to flush the surgical site. The tendons were repaired utilizing 4-0 Monocryl. Subcutaneous tissue was coapted in a simple buried-type fashion utilizing 4-0 Monocryl and 3-0 Nylon was utilized in a horizontal mattress-type fashion to coapt the skin edges. A dressing consisting of Betadine, Adaptic, 4x4, Kerlix and DELORES was applied to the right foot. The patient was then reversed from anesthesia and returned to the postoperative anesthesia care unit with vital signs stable and vascular status intact. The patient handled the anesthesia as well as the procedure without significant complication. Postoperative orders as indicated in the patient's discharge chart.
== END 2022-02-17 14:30 | disposition home or self-care (01) ==
LOC: SDC 06:41
PROVIDERS: ATTEND Podiatrist Foot & Ankle Surgery
DX: M20.41 Other hammer toe(s) (acquired), right foot (principal); M25.471 Effusion, right ankle; M77.9 Enthesopathy, unspecified; M77.41 Metatarsalgia, right foot; E11.9 Type 2 diabetes mellitus without complications
CPT/HCPCS: 36415; 73630; 76000; 80053; 81025; 82947; C1713; J0690; J1100; J1885; J2370; J2405; J2704; J3010; Q4126

== ENCOUNTER 2022-05-13 20:04 | Emergency (ER) | payer OTHER ==
[2022-05-13 21:55] VITALS: BP 155/108; O2SAT 98
[2022-05-13] MEDS ORDERED: DUONEB 0.5-3 MG/3 ml Neb IH ONE ×2 (22:05→22:07)
[2022-05-13 22:21] VITALS: PULSE 70
--- NOTE | 2022-05-13 23:13 | ERPHSYRPT ---
- History of Present Illness Time Seen by Provider: 05/13/22 21:46 Source: patient Exam Limitations: no limitations Patient Subjective Stated Complaint: PT STATES SHE HAS HAD COUGH AND CONGESTION FOR APPROX 1 WEK. TESTED COVID POS YESTERDAY. HER NEB MACHINE AT HOME IS BROKE AND SHE WOULD LIKE TO HAVE A NEB TREATMENT Triage Nursing Assessment: pt alert and oriented, answers questions approp. pt ambulatory with steeady gait noted. respirations nonlabored with lungs cta bilat. skin warm and dry. Physician History: 22 years old female having 1 week history of cough congestion, subjective feeling of fever and chills. She was seen at urgent care yesterday, diagnosed with COVID-19 and had negative x-ray done. She was given antibiotics and recommended breathing treatment. She was about to take her breathing treatment prior to arrival and there was some break in the tubing. She wants neb treatment. Denies any difficulty breathing other than what she has normally since she has been sick. She is afebrile. Not in any distress. She does not want any work-up but just neb treatment. Timing/Duration: week(s) (1), gradual onset Cough Quality/Degree: moderate, dry cough Possible Cause: illness exposure Modifying Factors: Worsens With: coughing Associated Symptoms: fever, chest pain/soreness, cough, muscle aches, nasal congestion, nasal drainage, sore throat Allergies/Adverse Reactions: mirtazapine [From Remeron] Allergy (Severe, Verified 05/13/22 21:55) Tightness of Throat Home Medications: Empagliflozin [Jardiance] 25 mg PO DAILY 11/21/21 [History] Furosemide 20 mg [Lasix 20 mg] 20 mg PO DAILY PRN PRN 01/14/22 [History] Amlodipine Besylate 5 mg [Norvasc 5 mg] 2.5 mg PO DAILY 01/23/22 [History] Bromocriptine Mesylate [Parlodel] 2.5 mg PO BID 01/23/22 [History] Ergocalciferol (Vitamin D2) [Vitamin D2] 1.25 mg PO UD 01/23/22 [History] Ethinyl Estradiol/Drospirenone [Vestura 3 mg-0.02 mg Tablet] 3 mg PO DAILY 01/23/22 [History] Ferrous Sulfate [Iron] 325 mg PO DAILY 01/23/22 [History] Paliperidone Palmitate [Invega Sustenna] 234 mg IM UD 01/23/22 [History] Ropinirole HCl 0.5 mg [Requip 0.5 MG] 0.25 mg PO BID 01/23/22 [History] Metoprolol Succinate 50 mg [Toprol Xl 50 MG] 50 mg PO DAILY 05/13/22 [History] Hx Tetanus, Diphtheria Vaccination/Date Given: Yes Hx Influenza Vaccination/Date Given: No Hx Pneumococcal Vaccination/Date Given: No Immunizations Up to Date: Yes Travel Risk - International Travel Have you traveled outside of the country in past 3 weeks: No - Coronavirus Screening Are you exhibiting any of the following symptoms?: Yes Symptoms: Cough: New Onset, Headaches/Body Aches/Fatigue Close contact with a COVID-19 positive Pt in past 14-21 Days: No - Vaccine Status Have you recieved a Covid-19 vaccination: Yes 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: [employer] - Vaccination Dates Date of 2cond Vaccination (if applicable): 09/28/2020 - Review of Systems Constitutional: Fever, Chills, Fatigue, Weakness Eyes: No Symptoms Ears, Nose, & Throat: Nose Congestion, Throat Swelling Respiratory: Cough Cardiac: No Symptoms Abdominal/Gastrointestinal: No Symptoms Musculoskeletal: Myalgias Neurological: Headache Psychological: No Symptoms Endocrine: No Symptoms Hematologic/Lymphatic: No Symptoms Immunological/Allergic: No Symptoms - Past Medical History Pertinent Past Medical History: Yes Neurological History: Migraines, Other ENT History: No Pertinent History Cardiac History: Arrhythmia, Hypertension Respiratory History: Asthma Endocrine Medical History: Diabetes Type II Musculoskeletal History: No Pertinent History, Fractures GI Medical History: Pancreatitis, Ulcer, Other History: No Pertinent History Psycho-Social History: Anxiety, Bipolar, Depression, Other Female Reproductive Disorders: No Pertinent History, Other Other Medical History: Murmur and rapid heart rate. R foot fx ; pt does not recall specific bone. Bone disease, unknown. Vertigo. Ovarian cysts. neurogenic bladder. PTSD, and borderline personality disorder - Past Surgical History Past Surgical History: Yes Neuro Surgical History: No Pertinent History Cardiac: No Pertinent History Respiratory: No Pertinent History Gastrointestinal: Other Genitourinary: No Pertinent History Musculoskeletal: Orthopedic Surgery Female Surgical History: No Pertinent History Other Surgical History: egd and colonoscopy,exploratory abd surgery, ercp. foot and shoulder surgeries - Social History Smoking Status: Never smoker Exposure to second hand smoke: Yes Drug Use: none Patient Lives Alone: No - Female History Hx Last Menstrual Period: LAST WEEK Hx Now: No - Nursing Vital Signs Nursing Vital Signs: Initial Vital Signs Temperature 97.8 F 05/13/22 21:45 Pulse Rate 99 H 05/13/22 21:45 Respiratory Rate 18 05/13/22 21:45 Blood Pressure 155/108 05/13/22 21:45 O2 Sat by Pulse Oximetry 98 05/13/22 21:45 Pain Scale Pain Intensity 6 - Physical Exam General Appearance: no apparent distress, alert Eye Exam: PERRL/EOMI, eyes nml inspection Ears, Nose, Throat Exam: moist mucous membranes, pharyngeal erythema Neck Exam: normal inspection, non-tender, supple, full range of motion Respiratory Exam: normal breath sounds, lungs clear Cardiovascular Exam: regular rate/rhythm, normal heart sounds Gastrointestinal/Abdomen Exam: soft, No tenderness Back Exam: normal inspection, normal range of motion Extremity Exam: normal inspection, normal range of motion Neurologic Exam: alert, 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, cooperative Skin Exam: normal color SpO2 Interpretation: normal SpO2: 98 O2 Delivery: Room Air Ordered Tests: Active Orders 24 hr Category Date Time Status Respiratory Therapy Assessment DAILY RT 05/13/22 22:20 Active Medication Summary Discontinued Medications Generic Name Dose Route Start Last Admin Trade Name Wilnerq PRN Reason Stop Dose Admin Albuterol/Ipratropium 3 ml 05/13/22 22:05 05/13/22 22:10 Ipratropium/Albuterol Sulfate 3 Ml Ampul.Neb IH 05/13/22 22:06 3 ml STAT ONE Administration Albuterol/Ipratropium Confirm 05/13/22 22:07 Ipratropium/Albuterol Sulfate 3 Ml Ampul.Neb Administered 05/13/22 22:08 Dose 3 ml IH .STK-MED ONE - Progress Air Movement: good Progress Note: 05/13/22 23:12 She is given breathing treatment. Before reevaluation patient wanted to leave. I was pending central line and busy with another patient and she walked out of the ER. - Departure Departure Disposition: AMA Clinical Impression: COVID-19, Cough Condition: Stable Critical Care Time: No Referrals: LYNETTE DOHERTY [Primary Care Provider] - Follow up/PCP as directed
== END 2022-05-13 23:03 | disposition left against medical advice (07) ==
LOC: ED 20:04
DX: U07.1 COVID-19 (principal); R05.1 Acute cough; R09.81 Nasal congestion; I10 Essential (primary) hypertension; E11.9 Type 2 diabetes mellitus without complications; Z79.84 Long term (current) use of oral hypoglycemic drugs; Z79.899 Other long term (current) drug therapy
CPT/HCPCS: 94640; 99281; A9270-GY

== ENCOUNTER 2022-06-09 11:34 | Emergency (ER) | payer OTHER ==
[2022-06-09] MEDS ORDERED: PROTONIX 40 MG IV IV ONE ×2 (12:12→12:15)
[2022-06-09] MEDS ORDERED: Sodium Chloride 0.9% 1000 ML 1,000 ML IV STA (12:12)
[2022-06-09] MEDS ORDERED: Zofran 4 MG/2 ML VIAL IV ONE (12:12)
--- NOTE | 2022-06-09 12:12 | ERPHSYRPT ---
- History of Present Illness Time Seen by Provider: 06/09/22 12:05 Historian: patient Exam Limitations: no limitations Patient Subjective Stated Complaint: C/O abdominal pain since 06/04/22. Pain started in her right lower quad (this pain is constant) but is now in both lower quads and left flank (this pain is intermittent). N/V since 06/05/22. Patient states she was seen by Dr. Willett on 06/07/22 and today, 06/09/22. Patient states she was instructed by Dr. Willett to come to the ER today. Triage Nursing Assessment: Patient ambulated back to ED. She is alert and oriented. No SOB. Patient with a flat affect. Skin tone normal but dry. Abdomen is slightly firm. JEFF ANDERSON. Physician History: This is a 22-year-old female patient of Dr. Willett who presents with bilateral lower quadrant abdominal pain. The initial pain was in the right lower quadrant and that pain is constant. That began on 06/04/2022. She then began having left lower quadrant intermittent abdominal pain a day or 2 later. She has had multiple episodes of vomiting. She has seen her primary care doctor Dr. Willett on at least 2 occasions and he sent her here for evaluation. Patient is also been seen at the [facility] emergency department yesterday, 06/08/2022. We obtained the results and I reviewed the results of [facility] emergency department work-up. There is no acute findings on CAT scan of the abdomen and pelvis. Patient states that Dr. Willett gave the patient a prescription for Zofran. Patient has had lab draws on 06/05/2022 which shows slightly elevated AST ALT and alkaline phosphatase but has a normal total bilirubin. On 06/07/2022 patient had a normal lipase level slightly elevated amylase level. Patient was diagnosed with COVID-19 infection on 05/13/2022. Patient states that her symptoms have significantly improved since that date. Patient has a history of diabetes, hypertension, anxiety, bipolar disorder, asthma, seasonal allergies, migraine headaches, pancreatitis, peptic ulcer disease and PTSD. Patient denies chest pain and she denies shortness of breath. She is had no diarrhea symptoms. Abdominal Pain Onset Location: RLQ, LLQ Pain Radiation: flank (Left) Severity of Pain-Max: mild (To moderate) Severity of Pain-Current: mild (To moderate) Modifying Factors: Improves With: vomiting Associated Symptoms: nausea, vomiting, No chest pain, No diarrhea, No fever/chills, No neck pain, No shortness of breath Previous symptoms: same symptoms as today, recently seen, recently treated Allergies/Adverse Reactions: mirtazapine [From Remeron] Allergy (Severe, Verified 06/09/22 11:48) Tightness of Throat Home Medications: Empagliflozin [Jardiance] 25 mg PO DAILY 11/21/21 [History] Furosemide 20 mg [Lasix 20 mg] 20 mg PO DAILY PRN PRN 01/14/22 [History] Amlodipine Besylate 5 mg [Norvasc 5 mg] 2.5 mg PO DAILY 01/23/22 [History] Ergocalciferol (Vitamin D2) [Vitamin D2] 1.25 mg PO UD 01/23/22 [History] Ethinyl Estradiol/Drospirenone [Vestura 3 mg-0.02 mg Tablet] 3 mg PO DAILY 01/23/22 [History] Ferrous Sulfate [Iron] 325 mg PO DAILY 01/23/22 [History] Paliperidone Palmitate [Invega Sustenna] 234 mg IM UD 01/23/22 [History] Ropinirole HCl 0.5 mg [Requip 0.5 MG] 0.25 mg PO BID 01/23/22 [History] Metoprolol Succinate 50 mg [Toprol Xl 50 MG] 50 mg PO DAILY 05/13/22 [History] Gabapentin [Neurontin ] 1 cap PO BID 06/09/22 [History] Barnwell Carbonate [Barnwell Carbonate ER] 1 tab PO HS 06/09/22 [History] Hx Tetanus, Diphtheria Vaccination/Date Given: Yes Hx Influenza Vaccination/Date Given: No Hx Pneumococcal Vaccination/Date Given: No Immunizations Up to Date: Yes Travel Risk - International Travel Have you traveled outside of the country in past 3 weeks: No - Coronavirus Screening Are you exhibiting any of the following symptoms?: Yes Symptoms: Vomiting/Diarrhea Close contact with a COVID-19 positive Pt in past 14-21 Days: No - Vaccine Status Have you recieved a 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-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[employer] - Vaccination Dates Date of 2cond Vaccination (if applicable): 09/28/2020 - Review of Systems Constitutional: No Symptoms Eyes: No Symptoms Ears, Nose, & Throat: No Symptoms Respiratory: No Symptoms Cardiac: No Symptoms Abdominal/Gastrointestinal: Abdominal Pain (Bilateral lower quadrants), Nausea, Vomiting Genitourinary Symptoms: No Symptoms Musculoskeletal: No Symptoms Skin: No Symptoms Neurological: No Symptoms Psychological: No Symptoms Endocrine: No Symptoms Hematologic/Lymphatic: No Symptoms Immunological/Allergic: No Symptoms All Other Systems: Reviewed and Negative - Past Medical History Pertinent Past Medical History: Yes Neurological History: Migraines, Other ENT History: No Pertinent History Cardiac History: Arrhythmia, Hypertension Respiratory History: Asthma Endocrine Medical History: Diabetes Type II Musculoskeletal History: Fractures GI Medical History: Pancreatitis, Ulcer, Other History: No Pertinent History Psycho-Social History: Anxiety, Bipolar, Depression, Other Female Reproductive Disorders: No Pertinent History, Other Other Medical History: Heart Murmur, R foot fx, unknown bone disease, Vertigo, Ovarian cysts, neurogenic bladder, PTSD, and borderline personality disorder - Past Surgical History Past Surgical History: Yes Neuro Surgical History: No Pertinent History Cardiac: No Pertinent History Respiratory: No Pertinent History Gastrointestinal: Exploratory Laparoscopy, Other Genitourinary: No Pertinent History Musculoskeletal: Orthopedic Surgery Female Surgical History: No Pertinent History Other Surgical History: EGD, colonoscopy, ERCP, foot and shoulder surgeries - Social History Smoking Status: Never smoker Exposure to second hand smoke: Yes Drug Use: none Patient Lives Alone: No - Female History Hx Now: No ( Control Pill) - Nursing Vital Signs Nursing Vital Signs: Initial Vital Signs Temperature 97.6 F 06/09/22 11:52 Pulse Rate 97 H 06/09/22 11:52 Respiratory Rate 17 06/09/22 11:52 Blood Pressure 139/97 06/09/22 11:52 O2 Sat by Pulse Oximetry 99 06/09/22 11:52 Pain Scale Pain Intensity 8 - Physical Exam General Appearance: no apparent distress, alert, anxiety Eye Exam: PERRL/EOMI, eyes nml inspection Ears, Nose, Throat Exam: normal ENT inspection, moist mucous membranes Neck Exam: normal inspection, non-tender, supple, full range of motion Respiratory Exam: normal breath sounds, lungs clear, No chest tenderness, No respiratory distress Cardiovascular Exam: regular rate/rhythm, normal heart sounds, normal peripheral pulses Gastrointestinal/Abdomen Exam: soft, normal bowel sounds, tenderness (Mild bilateral lower quadrants with palpation), guarding, No rebound Pelvic Exam: not done Rectal Exam: not done Back Exam: normal inspection, normal range of motion, No CVA tenderness, No vertebral tenderness Extremity Exam: normal inspection, normal range of motion, pelvis stable Neurologic Exam: alert, 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, cooperative, vocational psychologist II-XII nml as tested, normal mood/affect, nml cerebellar function, nml station & gait, sensation nml Skin Exam: normal color, warm, dry Lymphatic Exam: No adenopathy SpO2 Interpretation: normal SpO2: 99 O2 Delivery: Room Air - Course Nursing assessment & vital signs reviewed: Yes Ordered Tests: Active Orders 24 hr Category Date Time Status IV Insertion STAT Care 06/09/22 12:12 Active ABDOMEN AND PELVIS W/0 CONTRAS [CT] Stat Exams 06/09/22 12:12 Completed AMYLASE Stat Lab 06/09/22 12:10 Completed CBC W DIFF Stat Lab 06/09/22 12:10 Completed CMP Stat Lab 06/09/22 12:10 Completed CULTURE,URINE Stat Lab 06/09/22 12:14 Received HCG QUALITATIVE,SERUM Stat Lab 06/09/22 12:10 Completed LIPASE Stat Lab 06/09/22 12:10 Completed UA W/RFX CULTURE Stat Lab 06/09/22 12:14 Completed Medication Summary Generic Name Dose Route Start Last Admin Trade Name Freq PRN Reason Stop Dose Admin Sodium Chloride 1,000 mls @ 999 mls/hr 06/09/22 12:12 06/09/22 12:17 Sodium Chloride 0.9% 1000 Ml IV 06/09/22 13:12 999 mls/hr .Q1H1M STA Administration Ceftriaxone Sodium/Dextrose 1 g in 50 mls @ 100 mls/hr 06/09/22 12:38 06/09/22 12:40 Rocephin 1 Gm-D5w 50 Ml Bag IV 06/09/22 13:07 100 mls/hr STAT STA 100 mls/hr Administration Discontinued Medications Generic Name Dose Route Start Last Admin Trade Name Freq PRN Reason Stop Dose Admin Sodium Chloride Confirm 06/09/22 12:15 Sodium Chloride 0.9% 1000 Ml Administered 06/09/22 12:16 Dose 1,000 mls @ ud .ROUTE .STK-MED ONE Ceftriaxone Sodium/Dextrose Confirm 06/09/22 12:40 Rocephin 1 Gm-D5w 50 Ml Bag Administered 06/09/22 12:41 Dose 1 g in 50 mls @ ud IV .STK-MED ONE Ondansetron HCl 4 mg 06/09/22 12:12 06/09/22 12:17 Ondansetron Hcl 4 Mg/2 Ml Vial IV 06/09/22 12:13 4 mg STAT ONE Administration Ondansetron HCl Confirm 06/09/22 12:15 Ondansetron Hcl 4 Mg/2 Ml Vial Administered 06/09/22 12:16 Dose 4 mg .ROUTE .STK-MED ONE Pantoprazole Sodium 40 mg 06/09/22 12:12 06/09/22 12:17 Pantoprazole 40 Mg Vial IV 06/09/22 12:13 40 mg STAT ONE Administration Pantoprazole Sodium Confirm 06/09/22 12:15 Pantoprazole 40 Mg Vial Administered 06/09/22 12:16 Dose 40 mg IV .STK-MED ONE Lab/Rad Data: Laboratory Result Diagrams 06/09/22 12:10 06/09/22 12:10 Laboratory Results 06/09/22 06/09/22 06/09/22 Range/Units 12:14 12:10 12:10 WBC (4.0-10.5) x10^3/uL RBC (4.1-5.4) x10^6/uL Hgb (12.0-16.0) g/dL Hct (35-47) % MCV (78-100) fL MCH (26-32) pg MCHC (32-36) g/dL RDW (11.5-14.0) % Plt Count (150-450) x10^3/uL MPV (7.5-11.0) fL Gran % (36.0-66.0) % Immature Gran % (Auto) (0.00-0.4) % Nucleat RBC Rel Count (0.00-0.1) % Eos # (Auto) (0-0.5) x10^3/uL Immature Gran # (Auto) (0.00-0.03) x10^3u/L Absolute Lymphs (auto) (1.0-4.6) x10^3/uL Absolute Monos (auto) (0.0-1.3) x10^3/uL Absolute Nucleated RBC (0.00-0.01) x10^3u/L Lymphocytes % (24.0-44.0) % Monocytes % (0.0-12.0) % Eosinophils % (0.00-5.0) % Basophils % (0.0-0.4) % Absolute Granulocytes (1.4-6.9) x10^3/uL Basophils # (0-0.4) x10^3/uL Sodium 136 L (137-145) mmol/L Potassium 3.8 (3.5-5.1) mmol/L Chloride 104 (98-107) mmol/L Carbon Dioxide 24 (22-30) mmol/L Anion Gap 11.7 (5-15) MEQ/L BUN 9 (7-17) mg/dL Creatinine 0.73 (0.52-1.04) mg/dL Estimated GFR > 60.0 ML/MIN Glucose 101 (74-106) mg/dL Calcium 9.2 (8.4-10.2) mg/dL Total Bilirubin 0.50 (0.2-1.3) mg/dL AST 46 H (14-36) U/L ALT 71 H (0-35) U/L Alkaline Phosphatase 174 H (38-126) U/L Serum Total Protein 8.1 (6.3-8.2) g/dL Albumin 4.6 (3.5-5.0) g/dL Amylase 123 H (30-110) U/L Lipase 77 (23-300) U/L Serum , Qual NEGATIVE (Negative) Urinalys Dipstick Clnc MAIN LAB Urine Color YELLOW (YELLOW) Urine Appearance CLEAR (CLEAR) Urine pH 5.0 (5-6) Ur Specific [place] 1.020 (1.005-1.025) POC Urine Protein Conf NEGATIVE (Negative) Urine Ketones NEGATIVE (NEGATIVE) Urine Nitrite NEGATIVE (NEGATIVE) Urine Bilirubin NEGATIVE (NEGATIVE) Urine Urobilinogen 0.2 (0-1) mg/dL Urine Leukocytes SMALL A (NEGATIVE) Urine WBC (Auto) 6-10 A (0-5) /HPF Urine RBC (Auto) 3-5 A (0-2) /HPF U Epithel Cells (Auto) FEW (FEW) /HPF Urine Bacteria (Auto) RARE (NEGATIVE) /HPF Urine RBC MODERATE A (0-5) Star/ul Urine Mucus (Auto) SLIGHT A (NEGATIVE) /HPF Ur Culture Indicated? YES Urine Glucose NEGATIVE (NEGATIVE) mg/dL 06/09/22 Range/Units 12:10 WBC 7.4 (4.0-10.5) x10^3/uL RBC 5.12 (4.1-5.4) x10^6/uL Hgb 15.0 (12.0-16.0) g/dL Hct 45.1 (35-47) % MCV 88.1 (78-100) fL MCH 29.3 (26-32) pg MCHC 33.3 (32-36) g/dL RDW 11.9 (11.5-14.0) % Plt Count 288 (150-450) x10^3/uL MPV 10.4 (7.5-11.0) fL Gran % 60.5 (36.0-66.0) % Immature Gran % (Auto) 1.5 H (0.00-0.4) % Nucleat RBC Rel Count 0.0 (0.00-0.1) % Eos # (Auto) 0.09 (0-0.5) x10^3/uL Immature Gran # (Auto) 0.11 H (0.00-0.03) x10^3u/L Absolute Lymphs (auto) 2.18 (1.0-4.6) x10^3/uL Absolute Monos (auto) 0.52 (0.0-1.3) x10^3/uL Absolute Nucleated RBC 0.00 (0.00-0.01) x10^3u/L Lymphocytes % 29.4 (24.0-44.0) % Monocytes % 7.0 (0.0-12.0) % Eosinophils % 1.2 (0.00-5.0) % Basophils % 0.4 (0.0-0.4) % Absolute Granulocytes 4.48 (1.4-6.9) x10^3/uL Basophils # 0.03 (0-0.4) x10^3/uL Sodium (137-145) mmol/L Potassium (3.5-5.1) mmol/L Chloride (98-107) mmol/L Carbon Dioxide (22-30) mmol/L Anion Gap (5-15) MEQ/L BUN (7-17) mg/dL Creatinine (0.52-1.04) mg/dL Estimated GFR ML/MIN Glucose (74-106) mg/dL Calcium (8.4-10.2) mg/dL Total Bilirubin (0.2-1.3) mg/dL AST (14-36) U/L ALT (0-35) U/L Alkaline Phosphatase (38-126) U/L Serum Total Protein (6.3-8.2) g/dL Albumin (3.5-5.0) g/dL Amylase (30-110) U/L Lipase (23-300) U/L Serum , Qual (Negative) Urinalys Dipstick Clnc Urine Color (YELLOW) Urine Appearance (CLEAR) Urine pH (5-6) Ur Specific [place] (1.005-1.025) POC Urine Protein Conf (Negative) Urine Ketones (NEGATIVE) Urine Nitrite (NEGATIVE) Urine Bilirubin (NEGATIVE) Urine Urobilinogen (0-1) mg/dL Urine Leukocytes (NEGATIVE) Urine WBC (Auto) (0-5) /HPF Urine RBC (Auto) (0-2) /HPF U Epithel Cells (Auto) (FEW) /HPF Urine Bacteria (Auto) (NEGATIVE) /HPF Urine RBC (0-5) Star/ul Urine Mucus (Auto) (NEGATIVE) /HPF Ur Culture Indicated? Urine Glucose (NEGATIVE) mg/dL - Progress Progress: improved, re-examined Progress Note: 06/09/22 13:06 CAT scan of the abdomen pelvis without contrast shows nonspecific tiny bibasilar effusions which is a new finding compared to an old CAT scan of the abdomen pelvis. There is also gallbladder sludge/gravel Counseled pt/family regarding: lab results, diagnosis, need for follow-up, rad results - Departure Departure Disposition: Home Clinical Impression: UTI (urinary tract infection) Condition: Stable Critical Care Time: No Referrals: LYNETTE WILLETT [Primary Care Provider] - Follow up/PCP as directed Additional Instructions: Drink plenty of clear liquids. Avoid fatty greasy spicy food intake. Take your medication as prescribed. 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
[2022-06-09] MEDS ORDERED: Sodium Chloride 0.9% 1000 ML 1,000 ML ONE (12:15)
[2022-06-09] MEDS ORDERED: Zofran 4 MG/2 ML VIAL ONE (12:15)
[2022-06-09 12:33] LABS: Bacteria RARE /HPF (NEGATIVE); Epithelial Cells FEW /HPF (FEW); Mucus SLIGHT /HPF (NEGATIVE)
[2022-06-09 12:34] LABS: Absolute Neutrophil Ct (ANC) 4.48 x10^3/uL (1.4-6.9); Basophil (Absolute #) 0.03 x10^3/uL (0-0.4); Eosinophil % 1.2 % (0.00-5.0); Eosinophil (Absolute #) 0.09 x10^3/uL (0-0.5); Hematocrit 45.1 % (35-47); Lymphocyte (Absolute #) 2.18 x10^3/uL (1.0-4.6); Lymphocytes % 29.4 % (24.0-44.0); Mean Cell Volume 88.1 fL (78-100); Mean Corpuscular Hemoglobin 29.3 pg (26-32); Mean Corpuscular Hgb Concent. 33.3 g/dL (32-36); Mean Platelet Volume 10.4 fL (7.5-11.0); Monocyte (Absolute #) 0.52 x10^3/uL (0.0-1.3); Neutrophil % 60.5 % (36.0-66.0); Platelet Count 288 x10^3/uL (150-450); Red Blood Count 5.12 x10^6/uL (4.1-5.4); Red Cell Distribution Width 11.9 % (11.5-14.0); White Blood Count 7.4 x10^3/uL (4.0-10.5)
[2022-06-09 12:36] LABS: Appearance CLEAR (CLEAR); Bilirubin NEGATIVE (NEGATIVE); Dipstick done @ ? MAIN LAB; Glucose NEGATIVE (NEGATIVE); Ketones NEGATIVE (NEGATIVE); Nitrite NEGATIVE (NEGATIVE); Protein,Urine Dip NEGATIVE (Negative); RBC MODERATE Ery/ul (0-5); Urobilinogen 0.2 mg/dL (0-1)
[2022-06-09 12:37] LABS: Urine Cultured Indicated? YES
[2022-06-09] MEDS ORDERED: ROCEPHIN 1 Gm-D5w 50 ml Bag** 1 G/50 ML IVPB IV STA (12:38)
[2022-06-09 12:39] LABS: ALBUMIN 4.6 g/dL (3.5-5.0); ALKALINE PHOSPHATASE 174 U/L (38-126); AMYLASE 123 U/L (30-110); ANION GAP 11.7 MEQ/L (5-15); BLOOD UREA NITROGEN 9 mg/dL (7-17); CHLORIDE 104 mmol/L (98-107); Calcium 9.2 mg/dL (8.4-10.2); Carbon Dioxide 24 mmol/L (22-30); Creatinine 1 0.73 mg/dL (0.52-1.04); EST GLOMERULAR FILTRATION RATE > 60.0 ML/MIN; Glucose 101 mg/dL (74-106); LIPASE 77 U/L (23-300); Potassium 3.8 mmol/L (3.5-5.1); SGOT/AST 46 U/L (14-36); SGPT/ALT 71 U/L (0-35); SODIUM 136 mmol/L (137-145); Total Protein 8.1 g/dL (6.3-8.2)
[2022-06-09] MEDS ORDERED: ROCEPHIN 1 Gm-D5w 50 ml Bag** 1 G/50 ML IVPB IV ONE (12:40)
--- NOTE | 2022-06-09 13:02 | XRAY ---
Indication: Abdomen pain, nausea, vomiting, and diarrhea. Multiple contiguous axial images obtained through the abdomen and pelvis without contrast. Comparison: July 17, 2020 Lung bases demonstrates new tiny bibasilar effusions. Heart not enlarged. Noncontrasted stomach and bowel loops appear nonobstructed again with normal appendix. Liver now demonstrates diffuse fatty attenuation. Gallbladder demonstrates new sludge/gravel in the dependent portion. No free fluid/air. Remaining liver, gallbladder, pancreas, spleen, adrenal glands, kidneys, ureters, bladder, uterus, and aorta are unremarkable for noncontrast exam. Osseous structures intact. Impression: 1. New findings including nonspecific tiny bibasilar effusions, fatty liver, and gallbladder sludge/gravel. 2. Remaining CT abdomen/pelvis without contrast exam is negative.
[2022-06-09 13:19] VITALS: BP 114/81; PULSE 79; O2SAT 98
== END 2022-06-09 13:58 | disposition home or self-care (01) ==
LOC: ED 11:34
DX: N39.0 Urinary tract infection, site not specified (principal); R10.31 Right lower quadrant pain; R10.32 Left lower quadrant pain; R11.2 Nausea with vomiting, unspecified; E11.9 Type 2 diabetes mellitus without complications; I10 Essential (primary) hypertension; Z79.84 Long term (current) use of oral hypoglycemic drugs; Z79.899 Other long term (current) drug therapy; Z86.16 Personal history of COVID-19
CPT/HCPCS: 36000; 36415; 74176; 80053; 81015; 82150; 83690; 84703; 85025; 87086; 96365; 96374; 96375; 99284; J0696; J2405

== ENCOUNTER 2022-07-13 14:33 | Emergency (ER) | payer OTHER ==
[2022-07-13] MEDS ORDERED: DUONEB 0.5-3 MG/3 ml Neb IH ONE ×2 (15:09→15:16)
[2022-07-13 15:57] VITALS: PULSE 89; O2SAT 97
--- NOTE | 2022-07-13 16:20 | XRAY ---
Indication: Short of breath. Comparison: May 13, 2022 Portable chest is now underinflated but remains clear. Heart not enlarged. Bony thorax intact. No new/acute findings.
--- NOTE | 2022-07-13 17:13 | ERPHSYRPT ---
- History of Present Illness Time Seen by Provider: 07/13/22 14:40 Source: patient Exam Limitations: no limitations Patient Subjective Stated Complaint: pt has felt short of breath today and has used her nebulizer and inhalers, pt had her gall bladder removed yesterday by the [facility] at [place], pt is an asthmatic and has a hard time moving carbon monoxide out of her lungs Triage Nursing Assessment: Pt was brought to the ER by her cousin, vitals wnl, rates pain in her chest from breathing as 5/10, pt's oxygen is 97-100% and doesn't appear to be in any distress or having any difficulty breathing, pt is answering questions without being short of breath, pulses normal, skin n/w/d, no edema noted Physician History: 22 years old female with history of asthma presented in the ER with chief complaint of difficulty breathing with pressure and tightness in the center. She noticed it this morning and has taken a breathing treatment with no significant relief. Patient has laparoscopic cholecystectomy done yesterday. No fever or chills reported. Patient is not tachypneic on presentation and has minimal wheezing. No fever or chills reported. Has mild abdominal pain without vomiting. Timing/Duration: today, gradual onset Severity of Dyspnea-Max: moderate Severity of Dyspnea-Current: mild Possible Cause: occasional episodes Modifying Factors: Improves With: nothing Associated Symptoms: chest pain/discomfort, tightness, No productive cough Allergies/Adverse Reactions: mirtazapine [From Remeron] Allergy (Severe, Verified 07/13/22 14:44) Tightness of Throat Home Medications: Empagliflozin [Jardiance] 25 mg PO DAILY 11/21/21 [History] Furosemide 20 mg [Lasix 20 mg] 20 mg PO DAILY PRN PRN 01/14/22 [History] Amlodipine Besylate 5 mg [Norvasc 5 mg] 2.5 mg PO DAILY 01/23/22 [History] Ergocalciferol (Vitamin D2) [Vitamin D2] 1.25 mg PO UD 01/23/22 [History] Ethinyl Estradiol/Drospirenone [Vestura 3 mg-0.02 mg Tablet] 3 mg PO DAILY 01/23/22 [History] Ferrous Sulfate [Iron] 325 mg PO DAILY 01/23/22 [History] Paliperidone Palmitate [Invega Sustenna] 234 mg IM UD 01/23/22 [History] Ropinirole HCl 0.5 mg [Requip 0.5 MG] 0.25 mg PO BID 01/23/22 [History] Metoprolol Succinate 50 mg [Toprol Xl 50 MG] 50 mg PO DAILY 05/13/22 [History] Gabapentin [Neurontin ] 1 cap PO BID 06/09/22 [History] [place] Carbonate [Regan Carbonate ER] 1 tab PO HS 06/09/22 [History] Hx Tetanus, Diphtheria Vaccination/Date Given: Yes Hx Influenza Vaccination/Date Given: No Hx Pneumococcal Vaccination/Date Given: No Travel Risk - International Travel Have you traveled outside of the country in past 3 weeks: No - Coronavirus Screening Are you exhibiting any of the following symptoms?: No - Vaccine Status Have you recieved a Covid-19 vaccination: Yes 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[email or web address] - Vaccination Dates Date of 2cond Vaccination (if applicable): 09/28/2020 - Review of Systems Constitutional: No Symptoms Eyes: No Symptoms Ears, Nose, & Throat: No Symptoms Respiratory: Dyspnea, Wheezing Cardiac: No Symptoms Abdominal/Gastrointestinal: Abdominal Pain Genitourinary Symptoms: No Symptoms Musculoskeletal: No Symptoms Neurological: No Symptoms Psychological: No Symptoms Endocrine: No Symptoms Hematologic/Lymphatic: No Symptoms Immunological/Allergic: No Symptoms - Past Medical History Pertinent Past Medical History: Yes Neurological History: Migraines, Other ENT History: No Pertinent History Cardiac History: Arrhythmia, Hypertension Respiratory History: Asthma Endocrine Medical History: Diabetes Type II Musculoskeletal History: Fractures GI Medical History: Pancreatitis, Ulcer, Other History: No Pertinent History Psycho-Social History: Anxiety, Bipolar, Depression, Other Female Reproductive Disorders: No Pertinent History, Other Other Medical History: Heart Murmur, R foot fx, unknown bone disease, Vertigo, Ovarian cysts, neurogenic bladder, PTSD, and borderline personality disorder - Past Surgical History Past Surgical History: Yes Neuro Surgical History: No Pertinent History Cardiac: No Pertinent History Respiratory: No Pertinent History Gastrointestinal: Exploratory Laparoscopy, Other Genitourinary: No Pertinent History Musculoskeletal: Orthopedic Surgery Female Surgical History: No Pertinent History Other Surgical History: EGD, colonoscopy, ERCP, foot and shoulder surgeries - Social History Smoking Status: Never smoker Exposure to second hand smoke: Yes Drug Use: none Patient Lives Alone: No - Female History Hx Last Menstrual Period: 2 weeks Hx Now: No - Nursing Vital Signs Nursing Vital Signs: Initial Vital Signs Temperature 98.3 F 07/13/22 14:34 Pulse Rate 97 H 07/13/22 14:34 Blood Pressure 134/93 07/13/22 14:34 O2 Sat by Pulse Oximetry 99 07/13/22 14:34 Pain Scale Pain Intensity 4 - Physical Exam General Appearance: no apparent distress, alert Eye Exam: PERRL/EOMI Ears, Nose, Throat Exam: hearing grossly normal, normal ENT inspection, normal pharynx Neck Exam: normal inspection, non-tender, supple, full range of motion Respiratory Exam: wheezing, No chest tenderness, No respiratory distress, No accessory muscle use Cardiovascular/Chest Exam: normal heart sounds, regular rate/rhythm Abdominal/Gastrointestinal Exam: soft, tenderness (Appropriate tenderness) Extremity Exam: non-tender, normal range of motion Neurologic Exam: alert, 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, cooperative Skin Exam: normal color SpO2 Interpretation: normal SpO2: 97 O2 Delivery: Room Air - Course EKG Interpreted by Me: RATE ([id number]), Sinus Rhythm, NORMAL AXIS, NORMAL INTERVALS, Other (Nonspecific T wave changes) Ordered Tests: Active Orders 24 hr Category Date Time Status CHEST 1 VIEW (PORTABLE) Stat Exams 07/13/22 15:09 Completed Respiratory Therapy Assessment DAILY RT 07/13/22 15:18 Completed Medication Summary Discontinued Medications Generic Name Dose Route Start Last Admin Trade Name Reynaldo PRN Reason Stop Dose Admin Albuterol/Ipratropium 3 ml 07/13/22 15:09 07/13/22 15:18 Ipratropium/Albuterol Sulfate 3 Ml Ampul.Neb IH 07/13/22 15:10 3 ml STAT ONE Administration Albuterol/Ipratropium Confirm 07/13/22 15:16 Ipratropium/Albuterol Sulfate 3 Ml Ampul.Neb Administered 07/13/22 15:17 Dose 3 ml IH .STK-MED ONE - Progress Progress: improved, re-examined Air Movement: good Progress Note: 07/13/22 17:14 22 years old asthmatic with laparoscopic cholecystectomy yesterday presented in the ER with chest tightness and pressure with some difficulty breathing. Patient is not tachypneic or tachycardic in presentation. Has minimal wheezing, given DuoNeb, feeling much better on reevaluation. EKG showed sinus rhythm with no acute ischemic changes and chest x-ray negative for any acute cardiopulmonary findings. Patient has I believe some atelectasis and recommended using neb treatments regularly. Do not think she needs any other work-up and is stable for discharge with outpatient follow-up. Discussed signs symptoms of worsening needing return to ER which she seems understanding. Blood Culture(s) Obtained: No Antibiotics given: No Counseled pt/family regarding: diagnosis, need for follow-up, rad results - Departure Departure Disposition: Home Clinical Impression: Dyspnea Condition: Stable Critical Care Time: No Referrals: LYNETTE DOHERTY [Primary Care Provider] - Follow up/PCP as directed (1-2 days for reevaluation) Instructions: Asthma, Adult (DC) Additional Instructions: Use neb treatments every 4-6 hourly as recommended. Follow-up with primary care for reevaluation. Return to ER for any worsening of difficulty breathing, chest pain etc.
[2022-07-13 17:23] VITALS: BP 137/100
== END 2022-07-13 17:28 | disposition home or self-care (01) ==
LOC: ED 14:33
DX: R06.00 Dyspnea, unspecified (principal); R07.9 Chest pain, unspecified; I10 Essential (primary) hypertension; E11.9 Type 2 diabetes mellitus without complications; Z79.84 Long term (current) use of oral hypoglycemic drugs; Z79.899 Other long term (current) drug therapy
CPT/HCPCS: 71045; 94640; 99283; A9270-GY

== ENCOUNTER 2022-09-27 16:00 | Emergency (ER) | payer OTHER ==
[2022-09-27 16:40] LABS: Absolute Neutrophil Ct (ANC) 5.31 x10^3/uL (1.4-6.9); BASOPHIL % 0.3 % (0.0-0.4); Basophil (Absolute #) 0.03 x10^3/uL (0-0.4); Eosinophil % 1.4 % (0.00-5.0); Eosinophil (Absolute #) 0.12 x10^3/uL (0-0.5); Hematocrit 45.3 % (35-47); Hemoglobin 14.3 g/dL (12.0-16.0); IMMATURE GRAN # 0.01 x10^3u/L (0.00-0.03); IMMATURE GRAN % 0.1 % (0.00-0.4); Lymphocytes % 30.5 % (24.0-44.0); Mean Cell Volume 89.7 fL (78-100); Mean Corpuscular Hemoglobin 28.3 pg (26-32); Mean Corpuscular Hgb Concent. 31.6 g/dL (32-36); Mean Platelet Volume 10.5 fL (7.5-11.0); Monocyte (Absolute #) 0.68 x10^3/uL (0.0-1.3); Monocytes % 7.7 % (0.0-12.0); Platelet Count 307 x10^3/uL (150-450); Red Blood Count 5.05 x10^6/uL (4.1-5.4); White Blood Count 8.9 x10^3/uL (4.0-10.5)
[2022-09-27 16:59] LABS: ALBUMIN 4.3 g/dL (3.5-5.0); ALKALINE PHOSPHATASE 143 U/L (38-126); BLOOD UREA NITROGEN 5 mg/dL (7-17); CHLORIDE 105 mmol/L (98-107); Calcium 8.8 mg/dL (8.4-10.2); Carbon Dioxide 23 mmol/L (22-30); Creatinine 1 0.76 mg/dL (0.52-1.04); EST GLOMERULAR FILTRATION RATE > 60.0 ML/MIN; Glucose 108 mg/dL (74-106); Potassium 3.9 mmol/L (3.5-5.1); SGOT/AST 74 U/L (14-36); SGPT/ALT 95 U/L (0-35); SODIUM 140 mmol/L (137-145); TROPONIN < 0.012 ng/mL (0.000-0.034); Total Protein 7.6 g/dL (6.3-8.2)
--- NOTE | 2022-09-27 17:09 | XRAY ---
Indication: Chest pain. Comparison: July 13, 2022 Portable chest remains inflated and clear. Heart not enlarged. Bony thorax intact. No new/acute findings.
--- NOTE | 2022-09-27 18:33 | ERPHSYRPT ---
- History of Present Illness Time Seen by Provider: 09/27/22 17:00 Historian: patient Exam Limitations: no limitations Patient Subjective Stated Complaint: C/O chest pain that started on 09/22/22 Triage Nursing Assessment: Patient ambulated back to ER without difficulties. No SOB. She is alert and oriented. No cough. Skin tone normal. No edmea. Tachy. Flat affect. Physician History: Patient is a 22-year-old female presents to our ED for evaluation of chest pain. Patient has had chest pain for approximately 1 week. Patient followed up at [facility] for the same. Patient was evaluated and discharged home. No significant findings observed. Patient is here for the same. Pain described as an ache that is localized to the anterior sternum costochondral junction. No trauma. No fever. No nausea vomiting or diaphoresis. Symptoms are constant. Symptoms are worsened by movement and palpation. Symptoms improved with rest. Patient otherwise feels well. She voices no other complaints or concerns at this time. Portions of this note were created with voice recognition technology. There may be grammatical, spelling, punctuation or sound alike errors Timing/Duration: week(s) Activities at Onset: none (1 week) Quality: aching Location: other (Chest pain is sternal. Pain reproduced with palpation to sternum) Chest Pain Radiation: no radiation Severity of Pain-Max: moderate Severity of Pain-Current: mild Associated Symptoms: denies symptoms Prior Chest Pain/Cardiac Workup: no prior chest pain Nitro Today/Relief: no nitro taken today Aspirin Treatment Today: no aspirin today Allergies/Adverse Reactions: mirtazapine [From Remeron] Allergy (Severe, Verified 09/27/22 16:02) Tightness of Throat Home Medications: Empagliflozin [Jardiance] 25 mg PO DAILY 11/21/21 [History] Furosemide 20 mg [Lasix 20 mg] 20 mg PO DAILY PRN PRN 01/14/22 [History] Ergocalciferol (Vitamin D2) [Vitamin D2] 1.25 mg PO UD 01/23/22 [History] Ethinyl Estradiol/Drospirenone [Vestura 3 mg-0.02 mg Tablet] 3 mg PO DAILY 01/23/22 [History] Ferrous Sulfate [Iron] 325 mg PO DAILY 01/23/22 [History] Paliperidone Palmitate [Invega Sustenna] 234 mg IM UD 01/23/22 [History] Ropinirole HCl 0.5 mg [Requip 0.5 MG] 0.25 mg PO BID 01/23/22 [History] Metoprolol Succinate 50 mg [Toprol Xl 50 MG] 50 mg PO DAILY 05/13/22 [History] Gabapentin [Neurontin ] 1 cap PO BID 06/09/22 [History] [place] Carbonate [[place] Carbonate ER] 1 tab PO HS 06/09/22 [History] Hx Tetanus, Diphtheria Vaccination/Date Given: Yes Hx Influenza Vaccination/Date Given: No Hx Pneumococcal Vaccination/Date Given: No Travel Risk - International Travel Have you traveled outside of the country in past 3 weeks: No - Coronavirus Screening Are you exhibiting any of the following symptoms?: No Close contact with a COVID-19 positive Pt in past 14-21 Days: No - Vaccine Status Have you recieved a Covid-19 vaccination: Yes 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[employer] - Vaccination Dates Date of 2cond Vaccination (if applicable): 09/28/2020 - Review of Systems Constitutional: No Symptoms, No Fever, No Chills Eyes: No Symptoms Ears, Nose, & Throat: No Symptoms Respiratory: No Symptoms, No Cough, No Dyspnea Cardiac: No Symptoms, No Chest Pain, No Edema, No Syncope Abdominal/Gastrointestinal: No Symptoms, No Abdominal Pain, No Nausea, No V omiting, No Diarrhea Genitourinary Symptoms: No Symptoms, No Dysuria Musculoskeletal: No Symptoms, No Back Pain, No Neck Pain Skin: No Symptoms, No Rash Neurological: No Symptoms, No Dizziness, No Focal Weakness, No Sensory Changes Psychological: No Symptoms Endocrine: No Symptoms Hematologic/Lymphatic: No Symptoms Immunological/Allergic: No Symptoms All Other Systems: Reviewed and Negative - Past Medical History Pertinent Past Medical History: Yes Neurological History: Migraines, Other ENT History: No Pertinent History Cardiac History: Arrhythmia, Hypertension Respiratory History: Asthma Endocrine Medical History: Diabetes Type II Musculoskeletal History: Fractures GI Medical History: Gallbladder Disease, Pancreatitis, Ulcer, Other History: No Pertinent History Psycho-Social History: Anxiety, Bipolar, Depression, Other Female Reproductive Disorders: No Pertinent History, Other Other Medical History: Heart Murmur and tachycardia (Seen by Dr. Warren for cardiac conditions), R foot fx, unknown bone disease, Vertigo, Ovarian cysts, neurogenic bladder, PTSD, and borderline personality disorder - Past Surgical History Past Surgical History: Yes Neuro Surgical History: No Pertinent History Cardiac: No Pertinent History Respiratory: No Pertinent History Gastrointestinal: Cholecystectomy, Exploratory Laparoscopy, Other Genitourinary: No Pertinent History Musculoskeletal: Orthopedic Surgery Female Surgical History: No Pertinent History Other Surgical History: EGD, colonoscopy, ERCP, foot and shoulder surgeries - Social History Smoking Status: Never smoker Exposure to second hand smoke: No Drug Use: none Patient Lives Alone: No - Female History Hx Last Menstrual Period: 2 WEEKS AGO Hx Now: No (NOT SEXUALLY ACTIVE) - Nursing Vital Signs Nursing Vital Signs: Initial Vital Signs Temperature 98.9 F 09/27/22 16:02 Pulse Rate 120 H 09/27/22 16:02 Respiratory Rate 24 09/27/22 16:02 Blood Pressure 164/93 09/27/22 16:02 O2 Sat by Pulse Oximetry 99 09/27/22 16:02 Pain Scale Pain Intensity 0 - Physical Exam General Appearance: no apparent distress, alert Eye Exam: PERRL/EOMI, eyes nml inspection Ears, Nose, Throat Exam: normal ENT inspection, TMs normal, moist mucous membranes, dry mucous membranes Neck Exam: normal inspection, non-tender, supple, full range of motion Respiratory Exam: normal breath sounds, chest tenderness (Pain reproduced with palpation to the sternum.), lungs clear, airway intact, No respiratory distress Cardiovascular Exam: regular rate/rhythm, normal heart sounds, normal peripheral pulses Gastrointestinal/Abdomen Exam: soft, normal bowel sounds, No tenderness, No mass Back Exam: normal inspection, No CVA tenderness, No vertebral tenderness Extremity Exam: normal inspection, normal range of motion Neurologic Exam: alert, 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, cooperative, normal mood/affect, sensation nml, No motor deficits Skin Exam: normal color, warm, dry Lymphatic Exam: No adenopathy SpO2 Interpretation: normal SpO2: 98 O2 Delivery: Room Air - Course Nursing assessment & vital signs reviewed: Yes EKG Interpreted by Me: RATE (112), Sinus Tach, NORMAL AXIS, NORMAL INTERVALS - Radiology Exams Chest X-ray Interpretation: Teleradiologist Report (Negative chest x-ray) Ordered Tests: Active Orders 24 hr Category Date Time Status Community Dietitian STAT Care 09/27/22 16:30 Active EKG-ER Only STAT Care 09/27/22 16:30 Active IV Insertion STAT Care 09/27/22 16:30 Active Pulse Oximetry (ED) STAT Care 09/27/22 16:30 Active CHEST 1 VIEW (PORTABLE) Stat Exams 09/27/22 16:30 Completed CBC W DIFF Stat Lab 09/27/22 Completed CMP Stat Lab 09/27/22 Completed D-DIMER QUANTITATIVE Stat Lab 09/27/22 Completed TROPONIN Q4H Lab 09/27/22 Completed TROPONIN Q4H Lab 09/27/22 18:41 Completed TROPONIN Q4H Lab 09/28/22 00:30 Ordered TSH [TSH, 3RD Generation] Stat Lab 09/27/22 17:30 Completed Medication Summary Discontinued Medications Generic Name Dose Route Start Last Admin Trade Name Freq PRN Reason Stop Dose Admin Ketorolac Tromethamine 30 mg 09/27/22 18:37 09/27/22 18:41 Ketorolac Tromethamine 30 Mg/Ml Inj IV 09/27/22 18:38 30 mg STAT ONE Administration Ketorolac Tromethamine Confirm 09/27/22 18:39 Ketorolac Tromethamine 30 Mg/Ml Inj Administered 09/27/22 18:40 Dose 30 mg .ROUTE .Zyante-MED ONE Lab/Rad Data: Laboratory Result Diagrams 09/27/22 Unknown 09/27/22 Unknown Laboratory Results 09/27/22 09/27/22 09/27/22 Range/Units Unknown Unknown Unknown WBC 8.9 (4.0-10.5) x10^3/uL RBC 5.05 (4.1-5.4) x10^6/uL Hgb 14.3 (12.0-16.0) g/dL Hct 45.3 (35-47) % MCV 89.7 (78-100) fL MCH 28.3 (26-32) pg MCHC 31.6 L (32-36) g/dL RDW 12.0 (11.5-14.0) % Plt Count 307 (150-450) x10^3/uL MPV 10.5 (7.5-11.0) fL Gran % 60.0 (36.0-66.0) % Immature Gran % (Auto) 0.1 (0.00-0.4) % Nucleat RBC Rel Count 0.0 (0.00-0.1) % Eos # (Auto) 0.12 (0-0.5) x10^3/uL Immature Gran # (Auto) 0.01 (0.00-0.03) x10^3u/L Absolute Lymphs (auto) 2.70 (1.0-4.6) x10^3/uL Absolute Monos (auto) 0.68 (0.0-1.3) x10^3/uL Absolute Nucleated RBC 0.00 (0.00-0.01) x10^3u/L Lymphocytes % 30.5 (24.0-44.0) % Monocytes % 7.7 (0.0-12.0) % Eosinophils % 1.4 (0.00-5.0) % Basophils % 0.3 (0.0-0.4) % Absolute Granulocytes 5.31 (1.4-6.9) x10^3/uL Basophils # 0.03 (0-0.4) x10^3/uL D-Dimer < 0.19 (0.0-0.50) mg/L Sodium 140 (137-145) mmol/L Potassium 3.9 (3.5-5.1) mmol/L Chloride 105 (98-107) mmol/L Carbon Dioxide 23 (22-30) mmol/L Anion Gap 15.0 (5-15) MEQ/L BUN 5 L (7-17) mg/dL Creatinine 0.76 (0.52-1.04) mg/dL Estimated GFR > 60.0 ML/MIN Glucose 108 H (74-106) mg/dL Calcium 8.8 (8.4-10.2) mg/dL Total Bilirubin 0.50 (0.2-1.3) mg/dL AST 74 H (14-36) U/L ALT 95 H (0-35) U/L Alkaline Phosphatase 143 H (38-126) U/L Troponin I < 0.012 (0.000-0.034) ng/mL Serum Total Protein 7.6 (6.3-8.2) g/dL Albumin 4.3 (3.5-5.0) g/dL TSH 3rd Generation (0.47-4.68) mIU/L 09/27/22 09/27/22 Range/Units 18:41 17:30 WBC (4.0-10.5) x10^3/uL RBC (4.1-5.4) x10^6/uL Hgb (12.0-16.0) g/dL Hct (35-47) % MCV (78-100) fL MCH (26-32) pg MCHC (32-36) g/dL RDW (11.5-14.0) % Plt Count (150-450) x10^3/uL MPV (7.5-11.0) fL Gran % (36.0-66.0) % Immature Gran % (Auto) (0.00-0.4) % Nucleat RBC Rel Count (0.00-0.1) % Eos # (Auto) (0-0.5) x10^3/uL Immature Gran # (Auto) (0.00-0.03) x10^3u/L Absolute Lymphs (auto) (1.0-4.6) x10^3/uL Absolute Monos (auto) (0.0-1.3) x10^3/uL Absolute Nucleated RBC (0.00-0.01) x10^3u/L Lymphocytes % (24.0-44.0) % Monocytes % (0.0-12.0) % Eosinophils % (0.00-5.0) % Basophils % (0.0-0.4) % Absolute Granulocytes (1.4-6.9) x10^3/uL Basophils # (0-0.4) x10^3/uL D-Dimer (0.0-0.50) mg/L Sodium (137-145) mmol/L Potassium (3.5-5.1) mmol/L Chloride (98-107) mmol/L Carbon Dioxide (22-30) mmol/L Anion Gap (5-15) MEQ/L BUN (7-17) mg/dL Creatinine (0.52-1.04) mg/dL Estimated GFR ML/MIN Glucose (74-106) mg/dL Calcium (8.4-10.2) mg/dL Total Bilirubin (0.2-1.3) mg/dL AST (14-36) U/L ALT (0-35) U/L Alkaline Phosphatase (38-126) U/L Troponin I < 0.012 (0.000-0.034) ng/mL Serum Total Protein (6.3-8.2) g/dL Albumin (3.5-5.0) g/dL TSH 3rd Generation 1.400 (0.47-4.68) mIU/L - Progress Progress: improved Air Movement: good Progress Note: Please a 22-year-old female presents to our ED for evaluation of sternal chest pain. Chest pain has been ongoing for approximately 1 week. Patient followed up at an outside hospital. Work-up there was negative. Patient was discharged home. Patient is here with complaints of ongoing chest pain. Pain described as an ache that is localized to the sternum. On physical examination pain is reproduced with palpation to the sternum. Otherwise no other complaints. No trauma. No fever. Symptoms are moderate in intensity. Patient has not taken any oral analgesics for pain control. Studies obtained include EKG. Patient was mildly tachycardic. TSH ordered. TSH is normal. Chest x-ray negative for acute pathology. CBC CMP normal. D-dimer negative. Troponin negative. Patient received Toradol for pain control pain almost completely gone. Troponin negative x2. Pain appears to be costochondritis. Patient states she feels well enough to go home. She voices no other complaints or concerns at this time. Portions of this note were created with voice recognition technology. There may be grammatical, spelling, punctuation or sound alike errors Patient's presentation is acute. Vital stable. Complexity of problem addressed his moderate. New diagnosis with uncertain prognosis. No critical care time. Complexity of data reviewed and analyzed is moderate. Test ordered. Test reviewed and analyzed. Patient served as an independent historian. EKG independently interpreted by Dr. Baird. Risk of complication and or risk of morbidity/mortality of patient management is moderate. Patient received a prescription for Toradol. Patient received IV Toradol for pain control. In light of patient's pain patient received cardiac monitoring. Patient agrees to follow-up with her primary care doctor within 48 hours. No social determinants of health present that would impede follow-up. Plan of care established via shared decision making model. Time spent at discharge is approximately 10 minutes. Discharge diagnosis is costochondritis. Vital stable. Patient voices no other complaints or concerns at this time. Portions of this note were created with voice recognition technology. There may be grammatical, spelling, punctuation or sound alike error 09/27/22 19:19 Blood Culture(s) Obtained: No Antibiotics given: No Counseled pt/family regarding: lab results, diagnosis, need for follow-up, rad results - Departure Departure Disposition: Home Clinical Impression: Chest pain, Costochondritis Condition: Stable Critical Care Time: No Referrals: LYNETTE DOHERTY [Primary Care Provider] - Follow up/PCP as directed Instructions: Costochondritis, Chest Pain Additional Instructions: Discharge/Care Plan FLAVIA OSORIO was seen on 09/27/22 in the Emergency Room. The patient was counseled regarding Diagnosis,Lab results, Imaging studies, need for follow up and when to return to the Emergency Room. Prescriptions given: Discharge Note I have spoken with the patient and/or caregivers. I have explained the patient's condition, diagnosis and treatment plan based on the information available to me at this time. I have answered the patient's and/or caregiver's questions and addressed any concerns. The patient and/or caregivers have as good understanding of the patient's diagnosis, condition and treatment plan as can be expected at this point. The vital signs have been stable. The patient's condition is stable and appropriate for discharge from the emergency department. The patient will pursue further outpatient evaluation with the primary care physician or other designated or consulting physician as outlined in the discharge instructions. The patient and/or caregivers are agreeable to this plan of care and follow-up instructions have been explained in detail. The patient and/or caregivers have received these instruction. The patient/and or caregivers are aware that any significant change in condition or worsening of symptoms should prompt an immediate return to this or the closest emergency department or call 911. Prescriptions: Ketorolac Trometh 10 mg Tab [TORAdol 10 MG TABLET] 10 mg PO TID 5 Days #15 tablet
[2022-09-27] MEDS ORDERED: TORAdol 30 mg Injection IV ONE (18:37)
[2022-09-27] MEDS ORDERED: TORAdol 30 mg Injection ONE (18:39)
[2022-09-27 19:07] VITALS: BP 119/72; PULSE 94
[2022-09-27 19:15] VITALS: O2SAT 98
== END 2022-09-27 19:35 | disposition home or self-care (01) ==
LOC: ED 16:00
DX: M94.0 Chondrocostal junction syndrome [Tietze] (principal); R07.9 Chest pain, unspecified; I10 Essential (primary) hypertension; E11.9 Type 2 diabetes mellitus without complications; Z79.84 Long term (current) use of oral hypoglycemic drugs; Z79.899 Other long term (current) drug therapy
CPT/HCPCS: 36000; 36415; 71045; 80053; 84443; 84484; 85025; 85379; 93005; 93041; 94760; 96374; 99284; J1885

== ENCOUNTER 2022-11-14 19:19 | Emergency (ER) | payer OTHER ==
--- NOTE | 2022-11-14 19:38 | ERPHSYRPT ---
- History of Present Illness Time Seen by Provider: 11/14/22 19:38 Source: patient Exam Limitations: no limitations Physician History: This is a 22-year-old female who felt dizzy most of the day and had a headache. She came home from work and then "passed out" she hit her head after she passed out. Patient currently denies chest pain. She denies shortness of breath and denies abdominal pain. There were some visual changes that were brief after she woke up from hitting her head. 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 She has a history of tachycardia that he treats. Patient has a history of diabetes, migraine headaches, hypertension, anxiety, PTSD and bipolar disorder. Timing/Duration: today Severity: mild Character of Deficits: none Deficits: no difficulties Baseline/Normal Cognition: alert 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 Current Cognition: alert 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 Baseline Gait: walks w/o assistance Associated Symptoms: vision changes (Brief and resolved completely), headache (Brief and resolved), other (Dizziness) Allergies/Adverse Reactions: mirtazapine [From Remeron] Allergy (Severe, Verified 11/14/22 19:32) Tightness of Throat Home Medications: Empagliflozin [Jardiance] 25 mg PO DAILY 11/21/21 [History] Furosemide 20 mg [Lasix 20 mg] 20 mg PO DAILY PRN PRN 01/14/22 [History] Ethinyl Estradiol/Drospirenone [Vestura 3 mg-0.02 mg Tablet] 3 mg PO DAILY 01/23/22 [History] Ferrous Sulfate [Iron] 325 mg PO DAILY 01/23/22 [History] Paliperidone Palmitate [Invega Sustenna] 234 mg IM UD 01/23/22 [History] Ropinirole HCl 0.5 mg [Requip 0.5 MG] 0.25 mg PO BID 01/23/22 [History] Metoprolol Succinate 50 mg [Toprol Xl 50 MG] 50 mg PO DAILY 05/13/22 [History] Gabapentin [Neurontin ] 1 cap PO BID 06/09/22 [History] [place] Carbonate [[place] Carbonate ER] 1 tab PO HS 06/09/22 [History] Hx Tetanus, Diphtheria Vaccination/Date Given: Yes Hx Influenza Vaccination/Date Given: No Hx Pneumococcal Vaccination/Date Given: No Travel Risk - International Travel Have you traveled outside of the country in past 3 weeks: No - Coronavirus Screening Are you exhibiting any of the following symptoms?: No Close contact with a COVID-19 positive Pt in past 14-21 Days: No - Vaccine Status Have you recieved a Covid-19 vaccination: Yes 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[employer] - Vaccination Dates Date of 2cond Vaccination (if applicable): 09/28/2020 - Review of Systems Constitutional: No Symptoms Eyes: No Symptoms Ears, Nose, & Throat: No Symptoms Respiratory: No Symptoms Cardiac: No Symptoms Abdominal/Gastrointestinal: No Symptoms Genitourinary Symptoms: No Symptoms Musculoskeletal: No Symptoms Skin: No Symptoms Neurological: Dizziness, Headache Psychological: No Symptoms Endocrine: No Symptoms Hematologic/Lymphatic: No Symptoms Immunological/Allergic: No Symptoms All Other Systems: Reviewed and Negative - Past Medical History Pertinent Past Medical History: Yes Neurological History: Migraines, Other ENT History: No Pertinent History Cardiac History: Arrhythmia, Hypertension Respiratory History: Asthma Endocrine Medical History: Diabetes Type II Musculoskeletal History: Fractures GI Medical History: Gallbladder Disease, Pancreatitis, Ulcer, Other History: No Pertinent History Psycho-Social History: Anxiety, Bipolar, Depression, Other Female Reproductive Disorders: No Pertinent History, Other Other Medical History: Heart Murmur and tachycardia (Seen by Dr. Warren for cardiac conditions), R foot fx, unknown bone disease, Vertigo, Ovarian cysts, neurogenic bladder, PTSD, and borderline personality disorder, head injury - Past Surgical History Past Surgical History: Yes Neuro Surgical History: No Pertinent History Cardiac: No Pertinent History Respiratory: No Pertinent History Gastrointestinal: Cholecystectomy, Exploratory Laparoscopy, Other Genitourinary: No Pertinent History Musculoskeletal: Orthopedic Surgery Female Surgical History: No Pertinent History Other Surgical History: EGD, colonoscopy, ERCP, foot and shoulder surgeries - Social History Smoking Status: Never smoker Exposure to second hand smoke: No Drug Use: none Patient Lives Alone: No - Nursing Vital Signs Nursing Vital Signs: Initial Vital Signs Temperature 97.2 F 11/14/22 19:38 Pulse Rate 100 H 11/14/22 19:38 Blood Pressure 130/66 11/14/22 19:38 O2 Sat by Pulse Oximetry 98 11/14/22 19:38 Pain Scale Pain Intensity 6 - Foss Coma Scale Best Eye Response (Foss): (4) open spontaneously Best Verbal Response (Foss): (5) oriented Best Motor Response ([place]): (6) obeys commands Foss Total: 15 - Physical Exam General Appearance: no apparent distress, alert, anxiety Eye Exam: bilateral eye: normal inspection, PERRL, EOMI Ears, Nose, Throat Exam: normal ENT inspection, moist mucous membranes Neck Exam: normal inspection, non-tender, supple, full range of motion Respiratory: normal breath sounds, lungs clear, airway intact, No chest tenderness, No respiratory distress Cardiovascular: regular rate/rhythm, normal heart sounds, normal peripheral pulses Gastrointestinal: soft, normal bowel sounds, No tenderness Pelvic Exam: not done Rectal Exam: not done Back Exam: normal inspection, normal range of motion, No CVA tenderness, No vertebral tenderness Extremity Exam: normal inspection, normal range of motion, pelvis stable 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, 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, 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 Exam: normal hearing, normal speech, PERRL, tongue midline Coordination/Gait: normal finger to nose, normal gait Motor/Sensory: no motor deficit, no sensory deficit, no pronator drift Skin Exam: normal color, warm, dry SpO2 Interpretation: normal O2 Delivery: Room Air - Course Nursing assessment & vital signs reviewed: Yes EKG Interpreted by Me: RATE (98), Sinus Rhythm, NORMAL AXIS, NORMAL INTERVALS, NORMAL QRS, NORMAL ST-T, Other (No acute ischemic changes on today's twelve-lead EKG.) Ordered Tests: Active Orders 24 hr Category Date Time Status EKG-ER Only STAT Care 11/14/22 19:38 Active IV Insertion STAT Care 11/14/22 19:38 Active POCT Glucose Check STAT Care 11/14/22 19:38 Active HEAD WITHOUT CONTRAST [CT] Stat Exams 11/14/22 19:39 Taken CBC W DIFF Stat Lab 11/14/22 19:45 Completed CMP Stat Lab 11/14/22 19:45 Completed CULTURE,URINE Stat Lab 11/14/22 19:44 Received ETHYL ALCOHOL Stat Lab 11/14/22 19:45 Completed HCG QUALITATIVE, SERUM Stat Lab 11/14/22 19:45 Completed POCT GLUCOSE Stat Lab 11/14/22 19:51 Completed UA W/RFX UR CULTURE Stat Lab 11/14/22 19:44 Completed Urine Triage Profile Stat Lab 11/14/22 19:44 Received Medication Summary Generic Name Dose Route Start Last Admin Trade Name Freq PRN Reason Stop Dose Admin Ceftriaxone Sodium/Dextrose 1 g in 50 mls @ 100 mls/hr 11/14/22 21:25 Rocephin 1 Gm-D5w 50 Ml Bag IV 11/14/22 21:54 STAT STA Lab/Rad Data: Laboratory Result Diagrams 11/14/22 19:45 11/14/22 19:45 Laboratory Results 11/14/22 11/14/22 11/14/22 Range/Units 19:51 19:45 19:45 WBC (4.0-10.5) x10^3/uL RBC (4.1-5.4) x10^6/uL Hgb (12.0-16.0) g/dL Hct (35-47) % MCV (78-100) fL MCH (26-32) pg MCHC (32-36) g/dL RDW (11.5-14.0) % Plt Count (150-450) x10^3/uL MPV (7.5-11.0) fL Gran % (36.0-66.0) % Immature Gran % (Auto) (0.00-0.4) % Nucleat RBC Rel Count (0.00-0.1) % Eos # (Auto) (0-0.5) x10^3/uL Immature Gran # (Auto) (0.00-0.03) x10^3u/L Absolute Lymphs (auto) (1.0-4.6) x10^3/uL Absolute Monos (auto) (0.0-1.3) x10^3/uL Absolute Nucleated RBC (0.00-0.01) x10^3u/L Lymphocytes % (24.0-44.0) % Monocytes % (0.0-12.0) % Eosinophils % (0.00-5.0) % Basophils % (0.0-0.4) % Absolute Granulocytes (1.4-6.9) x10^3/uL Basophils # (0-0.4) x10^3/uL Sodium 140 (137-145) mmol/L Potassium 3.9 (3.5-5.1) mmol/L Chloride 105 (98-107) mmol/L Carbon Dioxide 25 (22-30) mmol/L Anion Gap 14.3 (5-15) MEQ/L BUN 11 (7-17) mg/dL Creatinine 0.75 (0.52-1.04) mg/dL Estimated GFR > 60.0 ML/MIN Glucose 111 H (74-106) mg/dL POC Glucometer 109 H (74 to 106) mg/dL Calcium 9.0 (8.4-10.2) mg/dL Total Bilirubin 0.40 (0.2-1.3) mg/dL AST 56 H (14-36) U/L ALT 68 H (0-35) U/L Alkaline Phosphatase 145 H (38-126) U/L Serum Total Protein 7.1 (6.3-8.2) g/dL Albumin 4.0 (3.5-5.0) g/dL Serum HCG, Qual NEGATIVE (NEGATIVE) Urine Color (Yellow) Urine Appearance (Clear) Urine pH (4.6-8.0) Ur Specific [place] (1.005-1.030) Urine Protein (Negative) Urine Glucose (UA) (Negative) mg/dL Urine Ketones (Negative) Urine Blood (Negative) Urine Nitrite (Negative) Urine Bilirubin (Negative) Urine Urobilinogen (0.2) mg/dL Ur Leukocyte Esterase (Negative) U Hyaline Cast (Auto) (0-2) /LPF Urine Microscopic RBC (0-5) /HPF Urine Microscopic WBC (0-5) /HPF Ur Epithelial Cells (None Seen) /HPF Urine Bacteria (None Seen) /HPF Urine Culture Reflexed (NO) Ethyl Alcohol < 10 (0-10) mg/dL 11/14/22 11/14/22 Range/Units 19:45 19:44 WBC 12.9 H (4.0-10.5) x10^3/uL RBC 4.69 (4.1-5.4) x10^6/uL Hgb 13.2 (12.0-16.0) g/dL Hct 41.8 (35-47) % MCV 89.1 (78-100) fL MCH 28.1 (26-32) pg MCHC 31.6 L (32-36) g/dL RDW 12.2 (11.5-14.0) % Plt Count 327 (150-450) x10^3/uL MPV 9.8 (7.5-11.0) fL Gran % 66.4 H (36.0-66.0) % Immature Gran % (Auto) 0.2 (0.00-0.4) % Nucleat RBC Rel Count 0.0 (0.00-0.1) % Eos # (Auto) 0.08 (0-0.5) x10^3/uL Immature Gran # (Auto) 0.03 (0.00-0.03) x10^3u/L Absolute Lymphs (auto) 3.43 (1.0-4.6) x10^3/uL Absolute Monos (auto) 0.79 (0.0-1.3) x10^3/uL Absolute Nucleated RBC 0.00 (0.00-0.01) x10^3u/L Lymphocytes % 26.6 (24.0-44.0) % Monocytes % 6.1 (0.0-12.0) % Eosinophils % 0.6 (0.00-5.0) % Basophils % 0.1 (0.0-0.4) % Absolute Granulocytes 8.56 H (1.4-6.9) x10^3/uL Basophils # 0.01 (0-0.4) x10^3/uL Sodium (137-145) mmol/L Potassium (3.5-5.1) mmol/L Chloride (98-107) mmol/L Carbon Dioxide (22-30) mmol/L Anion Gap (5-15) MEQ/L BUN (7-17) mg/dL Creatinine (0.52-1.04) mg/dL Estimated GFR ML/MIN Glucose (74-106) mg/dL POC Glucometer (74 to 106) mg/dL Calcium (8.4-10.2) mg/dL Total Bilirubin (0.2-1.3) mg/dL AST (14-36) U/L ALT (0-35) U/L Alkaline Phosphatase (38-126) U/L Serum Total Protein (6.3-8.2) g/dL Albumin (3.5-5.0) g/dL Serum HCG, Qual (NEGATIVE) Urine Color Yellow (Yellow) Urine Appearance Cloudy A (Clear) Urine pH 7.0 (4.6-8.0) Ur Specific [place] 1.020 (1.005-1.030) Urine Protein Negative (Negative) Urine Glucose (UA) Negative (Negative) mg/dL Urine Ketones Negative (Negative) Urine Blood Negative (Negative) Urine Nitrite Negative (Negative) Urine Bilirubin Negative (Negative) Urine Urobilinogen 1.0 A (0.2) mg/dL Ur Leukocyte Esterase Small A (Negative) U Hyaline Cast (Auto) NONE SEEN (0-2) /LPF Urine Microscopic RBC 0-2 (0-5) /HPF Urine Microscopic WBC 11-20 A (0-5) /HPF Ur Epithelial Cells Few (None Seen) /HPF Urine Bacteria Rare A (None Seen) /HPF Urine Culture Reflexed YES (NO) Ethyl Alcohol (0-10) mg/dL - Progress Progress: improved, re-examined Progress Note: 11/14/22 21:27 CT scan of the head without contrast was interpreted by the radiologist. He states that this is a normal CT of the head without contrast. This patient's medical issues 1 of moderate complexity. Level of complexity and the work-up performed is based on review of the patient's past medical history, review of the patient's medication list, review of the drug allergy list, history present illness and physical examination findings. The work-up performed included CT scan of the head, urinalysis, test, twelve-lead EKG, CBC and CMP. The work-up results were reviewed and the patient has a urinary tract infection. We will treat the urinary tract infection with a gram of Rocephin intravenously and then send a prescription remotely to her pharmacy for Cipro 500 mg orally twice a day for 7 days. Counseled pt/family regarding: lab results, diagnosis, need for follow-up, rad results Medical Desision Making - Diagnostic Testing Radiological Interpretation: Reviewed by ks, Teleradiologist Report - Risk of complications The pt has a mod risk of morbidity or mortality based on: Need for prescription drug management - Departure Departure Disposition: Home Clinical Impression: Syncopal episodes, Urinary tract infection Condition: Stable Critical Care Time: No Referrals: LYNETTE DOHERTY [Primary Care Provider] - Follow up/PCP as directed Additional Instructions: Plenty of fluids. Take your antibiotics and other medication as prescribed. Follow-up with your prescribing provider tomorrow, 11/15/2022, to make arrange for follow-up appointment in the next 3 to 5 days. Prescriptions: Ciprofloxacin [Cipro 500 MG] 500 mg PO BID #14 tablet
[2022-11-14 19:56] LABS: Absolute Neutrophil Ct (ANC) 8.56 x10^3/uL (1.4-6.9); BASOPHIL % 0.1 % (0.0-0.4); Basophil (Absolute #) 0.01 x10^3/uL (0-0.4); Eosinophil % 0.6 % (0.00-5.0); Eosinophil (Absolute #) 0.08 x10^3/uL (0-0.5); Hematocrit 41.8 % (35-47); Hemoglobin 13.2 g/dL (12.0-16.0); IMMATURE GRAN # 0.03 x10^3u/L (0.00-0.03); IMMATURE GRAN % 0.2 % (0.00-0.4); Lymphocyte (Absolute #) 3.43 x10^3/uL (1.0-4.6); Lymphocytes % 26.6 % (24.0-44.0); Mean Cell Volume 89.1 fL (78-100); Mean Corpuscular Hemoglobin 28.1 pg (26-32); Mean Corpuscular Hgb Concent. 31.6 g/dL (32-36); Mean Platelet Volume 9.8 fL (7.5-11.0); Monocyte (Absolute #) 0.79 x10^3/uL (0.0-1.3); Monocytes % 6.1 % (0.0-12.0); Neutrophil % 66.4 % (36.0-66.0); Platelet Count 327 x10^3/uL (150-450); Red Blood Count 4.69 x10^6/uL (4.1-5.4); Red Cell Distribution Width 12.2 % (11.5-14.0); White Blood Count 12.9 x10^3/uL (4.0-10.5)
[2022-11-14 20:05] LABS: Appearance Cloudy (Clear); Bacteria Rare /HPF (None Seen); Bilirubin Negative (Negative); Blood Negative (Negative); Epithelial Cells Few /HPF (None Seen); Glucose, Urine Negative (Negative); Hyaline Casts NONE SEEN /LPF (0-2); Ketones Negative (Negative); Leukocyte Esterase Small (Negative); Nitrite Negative (Negative); Protein,Urine Dip Negative (Negative); RBC 0-2 /HPF (0-5)
[2022-11-14 20:09] LABS: HCG SERUM TEST NEGATIVE (NEGATIVE)
[2022-11-14 20:10] LABS: ADD URINE CULTURE? YES (NO)
[2022-11-14 20:12] LABS: ALKALINE PHOSPHATASE 145 U/L (38-126); ANION GAP 14.3 MEQ/L (5-15); BLOOD UREA NITROGEN 11 mg/dL (7-17); CHLORIDE 105 mmol/L (98-107); Carbon Dioxide 25 mmol/L (22-30); Creatinine 1 0.75 mg/dL (0.52-1.04); EST GLOMERULAR FILTRATION RATE > 60.0 ML/MIN; ETHYL ALCOHOL < 10 mg/dL (0-10); Glucose 111 mg/dL (74-106); Potassium 3.9 mmol/L (3.5-5.1); SGOT/AST 56 U/L (14-36); SGPT/ALT 68 U/L (0-35); SODIUM 140 mmol/L (137-145); Total Protein 7.1 g/dL (6.3-8.2)
[2022-11-14] MEDS ORDERED: ROCEPHIN 1 Gm-D5w 50 ml Bag** 1 G/50 ML IVPB IV STA (21:25)
[2022-11-14] MEDS ORDERED: ROCEPHIN 1 Gm-D5w 50 ml Bag** 1 G/50 ML IVPB IV ONE (21:31)
[2022-11-14 21:35] LABS: Amphetamine,Urine NEGATIVE (NEGATIVE); Barbiturate,Urine NEGATIVE (NEGATIVE); Benzodiazepine,Urine NEGATIVE (NEGATIVE); Cocaine,Urine NEGATIVE (NEGATIVE); Methadone,Urine NEGATIVE (NEGATIVE); PCP,Urine NEGATIVE (NEGATIVE); THC,Urine NEGATIVE (NEGATIVE)
[2022-11-14 21:57] VITALS: BP 113/72; PULSE 88; O2SAT 99
[2022-11-14 22:01] LABS: Opiate,Urine NEGATIVE (NEGATIVE)
--- NOTE | 2022-11-15 08:41 | XRAY ---
Indication: Syncope. Right head injury. Multiple contiguous axial images obtained through the head without contrast. Comparison: December 20, 2021 Normal appearing brain parenchyma, ventricles, and bony calvarium for patient's age. Visualized paranasal sinuses and mastoid air cells are clear Impression: Continued normal CT head without contrast exam.
== END 2022-11-14 21:59 | disposition home or self-care (01) ==
LOC: ED 19:19
DX: N39.0 Urinary tract infection, site not specified (principal); R55 Syncope and collapse; R51.9 Headache, unspecified; E11.9 Type 2 diabetes mellitus without complications; I10 Essential (primary) hypertension; Z79.84 Long term (current) use of oral hypoglycemic drugs; Z79.899 Other long term (current) drug therapy
CPT/HCPCS: 36000; 36415; 70450; 80053; 80307; 81001; 82077; 82947; 84703; 85025; 87086; 93005; 96365; 99284; J0696

== ENCOUNTER 2022-11-29 11:30 | Emergency (ER) | payer OTHER ==
--- NOTE | 2022-11-29 13:34 | XRAY ---
Indication: Left upper extremity edema following IV infusion. Two-dimensional sonogram and color Doppler imaging of the major venous vessels of the left upper extremity performed. Comparison: None Entire forearm demonstrates occluding thrombi in a superficial vein. No thrombus seen in the remaining visualized left internal jugular, subclavian, axillary, cephalic, brachial, basilic, radial, and ulnar veins. Impression: Forearm demonstrates occluding thrombi in a superficial vein. Left upper extremity negative for deep venous thrombosis.
--- NOTE | 2022-11-29 13:36 | XRAY ---
Indication: Left upper extremity edema following IV infusion. Targeted soft tissue ultrasound left forearm is negative for focal solid/cystic soft tissue mass or abnormal fluid collection. Left upper extremity venous sonogram reported separately.
--- NOTE | 2022-11-29 13:58 | ERPHSYRPT ---
- History of Present Illness Source: patient Exam Limitations: no limitations Patient Subjective Stated Complaint: pt here for redness and swelling to left forearm, pt was released from hospital yesterday, and states that is wear she had and iv at, was seen by infectious dr today and was told to come here Triage Nursing Assessment: pt alert, flat affect, walked in, resp easy, skin w/d/p. has redness and swelling to left foream, she also states she is unable to hold antiboitics down Physician History: 22 yo F w L ventral, proximal forearm erythema and edema x 2 days. Pt just released from [facility] yesterday where she was admitted for nausea/vominting. She had IV's in that arm. Pain is 4/10 and worse w movement. Fever/dyspnea/chest pain are all denied. Pt was seen at Dr. Blackwell's today for recurring infections and was sent to the ER for cellulitis. Occurred: days ago (2 days) Method of Injury: other (IV placement) Quality: constant Severity of Pain-Max: moderate Severity of Pain-Current: moderate Extremities Pain Location: elbow: left, forearm: left Modifying Factors: Improves With: movement Associated Symptoms: none Allergies/Adverse Reactions: mirtazapine [From Remeron] Allergy (Severe, Verified 11/29/22 11:42) Tightness of Throat Home Medications: Empagliflozin [Jardiance] 25 mg PO DAILY 11/21/21 [History] Furosemide 20 mg [Lasix 20 mg] 20 mg PO DAILY PRN PRN 01/14/22 [History] Ethinyl Estradiol/Drospirenone [Vestura 3 mg-0.02 mg Tablet] 3 mg PO DAILY 01/23 [History] Ferrous Sulfate [Iron] 325 mg PO DAILY 01/23/22 [History] Paliperidone Palmitate [Invega Sustenna] 234 mg IM UD 01/23/22 [History] Ropinirole HCl 0.5 mg [Requip 0.5 MG] 0.25 mg PO BID 01/23/22 [History] Metoprolol Succinate 50 mg [Toprol Xl 50 MG] 50 mg PO DAILY 05/13/22 [H istory] Gabapentin [Neurontin ] 1 cap PO BID 06/09/22 [History] [place] Carbonate [[place] Carbonate ER] 1 tab PO HS 06/09/22 [History] Hx Tetanus, Diphtheria Vaccination/Date Given: Yes Hx Influenza Vaccination/Date Given: No Hx Pneumococcal Vaccination/Date Given: No Immunizations Up to Date: Yes Travel Risk - International Travel Have you traveled outside of the country in past 3 weeks: No - Coronavirus Screening Are you exhibiting any of the following symptoms?: No Close contact with a COVID-19 positive Pt in past 14-21 Days: No - Vaccine Status Have you recieved a Covid-19 vaccination: 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[employer] - Vaccination Dates Date of 2cond Vaccination (if applicable): 09/28/2020 - Review of Systems Constitutional: No Symptoms Eyes: No Symptoms Ears, Nose, & Throat: No Symptoms Respiratory: No Symptoms Cardiac: No Symptoms Abdominal/Gastrointestinal: No Symptoms Genitourinary Symptoms: No Symptoms Neurological: No Symptoms Psychological: No Symptoms Endocrine: No Symptoms Hematologic/Lymphatic: No Symptoms Immunological/Allergic: No Symptoms - Past Medical History Pertinent Past Medical History: Yes Neurological History: Migraines, Other ENT History: No Pertinent History Cardiac History: Arrhythmia, Hypertension Respiratory History: Asthma Endocrine Medical History: Diabetes Type II Musculoskeletal History: Fractures GI Medical History: Gallbladder Disease, Pancreatitis, Ulcer, Other History: No Pertinent History Psycho-Social History: Anxiety, Bipolar, Depression, Other Female Reproductive Disorders: No Pertinent History, Other Other Medical History: Heart Murmur and tachycardia (Seen by Dr. Warren for cardiac conditions), R foot fx, unknown bone disease, Vertigo, Ovarian cysts, neurogenic bladder, PTSD, and borderline personality disorder, head injury - Past Surgical History Past Surgical History: Yes Neuro Surgical History: No Pertinent History Cardiac: No Pertinent History Respiratory: No Pertinent History Gastrointestinal: Cholecystectomy, Exploratory Laparoscopy, Other Genitourinary: No Pertinent History Musculoskeletal: Orthopedic Surgery Female Surgical History: No Pertinent History Other Surgical History: EGD, colonoscopy, ERCP, foot and shoulder surgeries - Social History Smoking Status: Never smoker Exposure to second hand smoke: No Drug Use: none Patient Lives Alone: No (mom) - Female History Hx Last Menstrual Period: 4 weeks ago Hx Now: No - Nursing Vital Signs Nursing Vital Signs: Initial Vital Signs O2 Sat by Pulse Oximetry 100 11/29/22 11:47 Pain Scale Pain Intensity 4 T97.3/HR 82/100% sat/140/90 BP - Physical Exam General Appearance: no apparent distress Eyes, Ears, Nose, Throat Exam: normal ENT inspection, TMs normal, pharynx normal, moist mucous membranes Neck Exam: normal inspection, non-tender, supple, full range of motion, No Brudzinski, No Kernig's, No meningismus, No carotid bruit Cardiovascular/Respiratory Exam: normal breath sounds, regular rate/rhythm, heart sounds normal Abdominal Exam: non-tender, soft Back Exam: normal inspection, normal range of motion, No CVA tenderness, No vertebral tenderness Shoulder Exam: normal inspection, non-tender, no evidence of injury Elbow/Forearm Exam: swelling (Pt has mild edema/erythema/TTP L ventral forearm/Good radial pulse, distal sensation, and capillary return) Wrist Exam: normal inspection, non-tender, no evidence of injury Hand Exam: normal inspection, non-tender, no evidence of injury Neuro/Tendon Exam: normal sensation, normal motor functions, normal tendon functions, responds to pain Mental Status Exam: alert, 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, cooperative SpO2 Interpretation: normal SpO2: 94 O2 Delivery: Room Air - Course Nursing assessment & vital signs reviewed: Yes - Radiology Ultrasound Exam Venous Upper Extremity Ultrasound: discussed w/radiologist (ELZBIETA superficial thrombi/Soft tissue neg ) Ordered Tests: Active Orders 24 hr Category Date Time Status EXTREMITY NON VASCULAR [US] Stat Exams 11/29/22 12:22 Completed VENOUS UNILAT/LIMITED EXTREMIT [US] Stat Exams 11/29/22 12:23 Completed CBC W DIFF Stat Lab 11/29/22 14:14 Completed CMP Stat Lab 11/29/22 14:14 Completed Lactic Acid Stat Lab 11/29/22 12:22 Completed Lab/Rad Data: Laboratory Result Diagrams 11/29/22 14:14 11/29/22 14:14 Laboratory Results 11/29/22 11/29/22 11/29/22 Range/Units 14:14 14:14 12:22 WBC 17.1 H (4.0-10.5) x10^3/uL RBC 5.10 (4.1-5.4) x10^6/uL Hgb 14.4 (12.0-16.0) g/dL Hct 44.8 (35-47) % MCV 87.8 (78-100) fL MCH 28.2 (26-32) pg MCHC 32.1 (32-36) g/dL RDW 12.8 (11.5-14.0) % Plt Count 302 (150-450) x10^3/uL MPV 10.2 (7.5-11.0) fL Gran % 74.6 H (36.0-66.0) % Immature Gran % (Auto) 0.4 (0.00-0.4) % Nucleat RBC Rel Count 0.0 (0.00-0.1) % Eos # (Auto) 0.06 (0-0.5) x10^3/uL Immature Gran # (Auto) 0.06 H (0.00-0.03) x10^3u/L Absolute Lymphs (auto) 2.98 (1.0-4.6) x10^3/uL Absolute Monos (auto) 1.18 (0.0-1.3) x10^3/uL Absolute Nucleated RBC 0.00 (0.00-0.01) x10^3u/L Lymphocytes % 17.5 L (24.0-44.0) % Monocytes % 6.9 (0.0-12.0) % Eosinophils % 0.4 (0.00-5.0) % Basophils % 0.2 (0.0-0.4) % Absolute Granulocytes 12.74 H (1.4-6.9) x10^3/uL Basophils # 0.04 (0-0.4) x10^3/uL Sodium 137 (137-145) mmol/L Potassium 3.9 (3.5-5.1) mmol/L Chloride 100 (98-107) mmol/L Carbon Dioxide 25 (22-30) mmol/L Anion Gap 16.1 H (5-15) MEQ/L BUN 10 (7-17) mg/dL Creatinine 0.65 (0.52-1.04) mg/dL Estimated GFR > 60.0 ML/MIN Glucose 93 (74-106) mg/dL Lactic Acid 1.1 (0.4-2.0) Calcium 9.1 (8.4-10.2) mg/dL Total Bilirubin 0.70 (0.2-1.3) mg/dL AST 39 H (14-36) U/L ALT 49 H (0-35) U/L Alkaline Phosphatase 159 H (38-126) U/L Serum Total Protein 8.5 H (6.3-8.2) g/dL Albumin 4.5 (3.5-5.0) g/dL - Progress Progress Note: 11/29/22 19:24 Nursing note and vital signs reviewed No food or housing insecurities noted US results reviewed and shared w pt Lab results reviewed and shared w pt Pt has superficial thrombophlebitis due IV during recent admit Pt has chronic leukocytosis which she was seeing ID for today Counseled pt/family regarding: lab results, diagnosis, need for follow-up, rad results Medical Desision Making - Diagnostic Testing Radiological Interpretation: Reviewed by me - Risk of complications The pt has a mod risk of morbidity or mortality based on: Need for prescription drug management - Departure Departure Disposition: Home Clinical Impression: Thrombophlebitis arm Condition: Stable Critical Care Time: No Referrals: LYNETTE DOHERTY [Primary Care Provider] - Follow up/PCP as directed Instructions: Superficial Phlebitis Additional Instructions: Warm compresses Take a Aspirin 342mg once daily Start doxycycline twice a day for 1 week Zofran as needed for nausea/vomiting Follow up with your family MD in 1-2 days Prescriptions: Ondansetron ODT 4 MG [Zofran Odt 4 mg] 4 mg PO Q6H PRN PRN #10 tablet PRN Reason: Nausea Doxycycline Monohydrate 100 mg PO BID 7 Days #14 cap
[2022-11-29 14:16] LABS: Absolute Neutrophil Ct (ANC) 12.74 x10^3/uL (1.4-6.9); BASOPHIL % 0.2 % (0.0-0.4); Basophil (Absolute #) 0.04 x10^3/uL (0-0.4); Eosinophil % 0.4 % (0.00-5.0); Eosinophil (Absolute #) 0.06 x10^3/uL (0-0.5); Hematocrit 44.8 % (35-47); Hemoglobin 14.4 g/dL (12.0-16.0); IMMATURE GRAN # 0.06 x10^3u/L (0.00-0.03); IMMATURE GRAN % 0.4 % (0.00-0.4); Lymphocyte (Absolute #) 2.98 x10^3/uL (1.0-4.6); Lymphocytes % 17.5 % (24.0-44.0); Mean Cell Volume 87.8 fL (78-100); Mean Corpuscular Hemoglobin 28.2 pg (26-32); Mean Corpuscular Hgb Concent. 32.1 g/dL (32-36); Mean Platelet Volume 10.2 fL (7.5-11.0); Monocyte (Absolute #) 1.18 x10^3/uL (0.0-1.3); Monocytes % 6.9 % (0.0-12.0); Neutrophil % 74.6 % (36.0-66.0); Platelet Count 302 x10^3/uL (150-450); Red Cell Distribution Width 12.8 % (11.5-14.0); White Blood Count 17.1 x10^3/uL (4.0-10.5)
[2022-11-29 14:39] LABS: ALBUMIN 4.5 g/dL (3.5-5.0); ALKALINE PHOSPHATASE 159 U/L (38-126); ANION GAP 16.1 MEQ/L (5-15); BLOOD UREA NITROGEN 10 mg/dL (7-17); CHLORIDE 100 mmol/L (98-107); Calcium 9.1 mg/dL (8.4-10.2); Carbon Dioxide 25 mmol/L (22-30); Creatinine 1 0.65 mg/dL (0.52-1.04); EST GLOMERULAR FILTRATION RATE > 60.0 ML/MIN; Glucose 93 mg/dL (74-106); Potassium 3.9 mmol/L (3.5-5.1); SGOT/AST 39 U/L (14-36); SGPT/ALT 49 U/L (0-35); SODIUM 137 mmol/L (137-145); Total Protein 8.5 g/dL (6.3-8.2)
[2022-11-29 14:51] VITALS: BP 125/71; PULSE 76
[2022-11-29 19:27] VITALS: O2SAT 94
== END 2022-11-29 14:51 | disposition home or self-care (01) ==
LOC: ED 11:30
DX: T80.1XXA Vascular complications following infusion, transfusion and therapeutic injection, initial encounter (principal); I80.8 Phlebitis and thrombophlebitis of other sites; R60.0 Localized edema; I10 Essential (primary) hypertension; E11.9 Type 2 diabetes mellitus without complications; Z79.84 Long term (current) use of oral hypoglycemic drugs; Z79.899 Other long term (current) drug therapy
CPT/HCPCS: 36415; 76881; 80053; 83605; 85025; 93971; 99283

== ENCOUNTER 2023-03-25 17:33 | Emergency (ER) | payer OTHER ==
--- NOTE | 2023-03-25 17:46 | ERPHSYRPT ---
- History of Present Illness Time Seen by Provider: 03/25/23 17:45 Source: patient, family Exam Limitations: no limitations Physician History: 3 pts came at once and it was not possible to see them all in 10 minutes so by priority this was was held an extra few minutes. Pt has hx of vertigo without change for years and known and followed by PMD per pt hx. Fell with a typical episode onto porch 3 days ago and still has right hip pain. Tender with ROM right hip and to palpation. NV intact. All other ext and spine full ROm without pain and nontender to aplp. Abd soft nontender without peritoneal signs or mass or distension. PERRL Neuro exam normal. fundi bening - no LOC no headache. TM normal. no nystagmus at this time or vertigo now. CHest clear and nontender Ht reg without M. discussed risk/benefit of x-ray with Family and pt and they wish to proceed. this is ordered. later results discussed. Method of Injury: fell Occurred: days ago Quality: constant, sharpness, throbbing Severity of Pain-Max: moderate Severity of Pain-Current: moderate Lower Extremities Pain: hip: right Modifying Factors: Improves With: immobilization, movement Associated Symptoms: other (vertigo episode ( chronic) caused the fall) Allergies/Adverse Reactions: mirtazapine [From Remeron] Allergy (Severe, Verified 03/25/23 17:40) Tightness of Throat hydrocodone Allergy (Verified 03/25/23 17:40) Home Medications: Empagliflozin [Jardiance] 25 mg PO DAILY 11/21/21 [History] Paliperidone Palmitate [Invega Sustenna] 234 mg IM UD 01/23/22 [History] Metoprolol Succinate 50 mg [Toprol Xl 50 MG] 50 mg PO BID 05/13/22 [History] Amlodipine Besylate [Norvasc] 2.5 mg PO DAILY 03/25/23 [History] Colestipol HCl [Colestid] 1 gm PO BID 03/25/23 [History] Pioglitazone 30 mg [Actos 30 MG] 30 mg PO HS 03/25/23 [History] Hx Tetanus, Diphtheria Vaccination/Date Given: Yes Hx Influenza Vaccination/Date Given: No Hx Pneumococcal Vaccination/Date Given: No Travel Risk - Vaccine Status Have you recieved a Covid-19 vaccination: Yes [employer]: [employer] - Vaccination Dates Date of 2cond Vaccination (if applicable): 09/28/2020 - Review of Systems Constitutional: No Fever, No Chills Eyes: No Symptoms Ears, Nose, & Throat: No Symptoms Respiratory: No Cough, No Dyspnea Cardiac: No Chest Pain, No Edema, No Syncope Abdominal/Gastrointestinal: No Abdominal Pain, No Nausea, No Vomiting, No Diarrhea Genitourinary Symptoms: No Dysuria Musculoskeletal: Fall, Injury, Joint Pain, No Back Pain, No Neck Pain Skin: No Rash Neurological: No Dizziness, No Focal Weakness, No Sensory Changes Psychological: No Symptoms Endocrine: No Symptoms Hematologic/Lymphatic: No Symptoms Immunological/Allergic: No Symptoms All Other Systems: Reviewed and Negative - Past Medical History Pertinent Past Medical History: Yes Neurological History: Migraines, Other ENT History: No Pertinent History Cardiac History: Arrhythmia, Hypertension Respiratory History: Asthma Endocrine Medical History: Diabetes Type II Musculoskeletal History: Fractures GI Medical History: Gallbladder Disease, Pancreatitis, Ulcer, Other History: No Pertinent History Psycho-Social History: Anxiety, Bipolar, Depression, Other Female Reproductive Disorders: No Pertinent History, Other Other Medical History: Heart Murmur and tachycardia (Seen by Dr. Warren for cardiac conditions), R foot fx, unknown bone disease, Vertigo, Ovarian cysts, neurogenic bladder, PTSD, and borderline personality disorder, head injury - Past Surgical History Past Surgical History: Yes Neuro Surgical History: No Pertinent History Cardiac: No Pertinent History Respiratory: No Pertinent History Gastrointestinal: Cholecystectomy, Exploratory Laparoscopy, Other Genitourinary: No Pertinent History Musculoskeletal: Orthopedic Surgery Female Surgical History: No Pertinent History Other Surgical History: EGD, colonoscopy, ERCP, foot and shoulder surgeries - Social History Smoking Status: Never smoker Exposure to second hand smoke: No Drug Use: none Patient Lives Alone: No (mom) - Nursing Vital Signs Nursing Vital Signs: Initial Vital Signs Pulse Rate 102 H 03/25/23 17:48 Respiratory Rate 17 03/25/23 17:48 Blood Pressure 152/95 03/25/23 17:48 O2 Sat by Pulse Oximetry 100 03/25/23 17:48 Pain Scale Pain Intensity 4 - Physical Exam General Appearance: no apparent distress, alert Eyes, Ears, Nose, Throat Exam: moist mucous membranes Neck Exam: non-tender, supple Cardiovascular/Respiratory Exam: chest non-tender, normal breath sounds, regular rate/rhythm, no respiratory distress Gastrointestinal/Abdominal Exam: non-tender, guarding Back Exam: normal inspection, No vertebral tenderness Hips Exam: right: bone tenderness, limited range of motion, pain, soft tissue tenderness, left: non-tender, normal inspection, normal range of motion, no evidence of injury Legs Exam: bilateral leg: non-tender, normal inspection, normal range of motion, no evidence of injury Knees Exam: bilateral knee: non-tender, normal inspection, normal range of motion, no evidence of injury Ankle Exam: bilateral ankle: non-tender, normal inspection, normal range of motion, no evidence of injury Foot Exam: bilateral foot: non-tender, normal inspection, normal range of motion, no evidence of injury DTR - Lower Extremities Exam: knee (R): 2+, knee (L): 2+, ankle (R): 2+, ankle (L): 2+ Neuro/Tendon Exam: normal sensation, normal motor functions, normal tendon functions Mental Status Exam: alert, 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, cooperative Skin Exam: normal color, warm, dry SpO2 Interpretation: normal SpO2: 100 O2 Delivery: Room Air - Course Nursing assessment & vital signs reviewed: Yes - Radiology Exams Left Hip X-ray Interpretation: Reviewed by me, Other (no obvious fracture final report next week) Ordered Tests: Active Orders 24 hr Category Date Time Status Crutches STAT Care 03/25/23 19:19 Ordered HIP UNI (2V) INCL PEL IF DONE Stat Exams 03/25/23 18:14 Taken - Progress Progress: improved, re-examined Counseled pt/family regarding: diagnosis, need for follow-up, rad results Medical Desision Making - Independent Historian Additional History obtained from: Family - Discussion of managment Reviewed:: Test results, Need for additional workup Agreed on:: Treatment plan, need for follow-up - Diagnostic Testing Diagnostic test were ordered, analyzed, and reviewed by me: Yes Radiological Interpretation: Reviewed by me - Risk of complications The pt has a mod risk of morbidity or mortality based on: Diagnosis or treatment limited by SDOH (pt has chronic illness placing at risk for furhter falls - following with PMD. ) - Departure Clinical Impression: right hip contussion/occult fx/ligament Condition: Good Critical Care Time: No Referrals: LYNETTE DOHERTY [Primary Care Provider] - Follow up/PCP as directed Instructions: Preventing falls in adults, Contusion (DC) Additional Instructions: There may be a hairline hip fracture or ligament injury and there is a contusion in the muscle. Followup with your Dr. this week for final x-ray reading and referral to ortho or MRI if he determines that need. Followup for your blood pressure as well and continue to followup for your vertigo condition. Sometimes in a fall there are additional undetected injuries and therefore followup for any new symptoms is important or return here if these occur. Return meantime if not improving or additional concerns.
[2023-03-25 17:49] VITALS: PULSE 102; O2SAT 100
[2023-03-25 19:24] VITALS: BP 146/109; RESP 18
--- NOTE | 2023-03-25 20:30 | XRAY ---
Indication: Pain following fall. Comparison: None AP pelvis and 2 view right hip demonstrates old left superior pubic ramus fracture. No other bony, articular, or soft tissue abnormalities.
== END 2023-03-25 19:37 | disposition home or self-care (01) ==
LOC: ED 17:33
DX: S70.01XA Contusion of right hip, initial encounter (principal); W19.XXXA Unspecified fall, initial encounter; I10 Essential (primary) hypertension; E11.9 Type 2 diabetes mellitus without complications; Z79.84 Long term (current) use of oral hypoglycemic drugs; Z79.899 Other long term (current) drug therapy
CPT/HCPCS: 73502; 99282

== ENCOUNTER 2023-06-22 17:43 | Emergency (ER) | payer OTHER ==
[2023-06-22 18:15] VITALS: TEMP 98.4
--- NOTE | 2023-06-22 18:20 | ERPHSYRPT ---
- History of Present Illness Time Seen by Provider: 06/22/23 18:20 Source: patient Exam Limitations: no limitations Patient Subjective Stated Complaint: C/O swelling behind left ear that started 2 days ago. Triage Nursing Assessment: Patient ambulated back to ER. She is alert and oriented; flat affect. No SOB. Examined behind left ear. No skin alterations or discolorations noted. Slight swelling noted. Patient states pain from behind ear is spreading into her face on the left side when nurse pressing behind ear. Physician History: This is a 23-year-old female patient of Dr. Willett who presents to the emergency department with painful left posterior auricular pain and swelling for 2 days. Patient was seen in outpatient clinic 2 days ago and started on cefdinir antibiotic. Since that time, the patient states the swelling and pain has traveled onto her scalp on the left side as well as the left face. She has a headache. She wants a CAT scan of the head. Patient has a history of migraine headaches, arrhythmia, hypertension, diabetes, anxiety, bipolar disorder and depression. Timing/Duration: day(s) (2) Quality: painful Severity: mild Location: scalp, face (Moderate), other (Behind left ear) Possible Causes: no cause identified Associated Symptoms: headache (Left side), swelling/mass/lumps (Her complaint of this behind her left ear) Allergies/Adverse Reactions: mirtazapine [From Remeron] Allergy (Severe, Verified 06/22/23 18:02) Tightness of Throat hydrocodone Allergy (Verified 06/22/23 18:02) Home Medications: Empagliflozin [Jardiance] 25 mg PO DAILY 11/21/21 [History] Paliperidone Palmitate [Invega Sustenna] 234 mg IM UD 01/23/22 [History] Metoprolol Succinate 50 mg [Toprol Xl 50 MG] 50 mg PO BID 05/13/22 [History] Amlodipine Besylate [Norvasc] 2.5 mg PO DAILY 03/25/23 [History] Colestipol HCl [Colestid] 1 gm PO BID 03/25/23 [History] Pioglitazone 30 mg [Actos 30 MG] 30 mg PO HS 03/25/23 [History] Cefdinir 1 cap PO BID 06/22/23 [History] Hx Tetanus, Diphtheria Vaccination/Date Given: Yes Hx Influenza Vaccination/Date Given: No Hx Pneumococcal Vaccination/Date Given: No Immunizations Up to Date: Yes Travel Risk - International Travel Have you traveled outside of the country in past 3 weeks: No - Coronavirus Screening Are you exhibiting any of the following symptoms?: No Close contact with a COVID-19 positive Pt in past 14-21 Days: No - Vaccine Status Have you 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 She also feels that the redness swelling and tenderness is traveling to her left side of her face and the left scalp causing a headache) Neurological: Headache Psychological: No Symptoms Endocrine: No Symptoms Hematologic/Lymphatic: No Symptoms Immunological/Allergic: No Symptoms All Other Systems: Reviewed and Negative - Past Medical History Pertinent Past Medical History: Yes Neurological History: Migraines, Other ENT History: No Pertinent History Cardiac History: Arrhythmia, Hypertension Respiratory History: Asthma Endocrine Medical History: Diabetes Type II Musculoskeletal History: Fractures GI Medical History: Gallbladder Disease, Pancreatitis, Ulcer, Other History: No Pertinent History Psycho-Social History: Anxiety, Bipolar, Depression, Other Female Reproductive Disorders: No Pertinent History, Other Other Medical History: Heart Murmur and tachycardia (Seen by Dr. Warren for ca rdiac conditions), R foot fx, unknown bone disease, Vertigo, Ovarian cysts, neurogenic bladder, PTSD, and borderline personality disorder, head injury - Past Surgical History Past Surgical History: Yes Neuro Surgical History: No Pertinent History Cardiac: No Pertinent History Respiratory: No Pertinent History Gastrointestinal: Cholecystectomy, Exploratory Laparoscopy, Other Genitourinary: No Pertinent History Musculoskeletal: Orthopedic Surgery Female Surgical History: No Pertinent History Other Surgical History: EGD, colonoscopy, ERCP, foot and shoulder surgeries - Social History Smoking Status: Never smoker Exposure to second hand smoke: No Drug Use: none Patient Lives Alone: No - Female History Hx Last Menstrual Period: 3 weeks ago Hx Now: No - Nursing Vital Signs Nursing Vital Signs: Initial Vital Signs Pulse Rate 91 H 01/05/24 18:02 Respiratory Rate 17 06/22/23 18:02 Blood Pressure 148/94 06/22/23 18:02 O2 Sat by Pulse Oximetry 98 06/22/23 18:02 Pain Scale Pain Intensity 5 - Physical Exam General Appearance: no apparent distress, alert, anxiety Eye Exam: PERRL/EOMI, eyes nml inspection Ears, Nose, Throat Exam: normal ENT inspection, moist mucous membranes Neck Exam: normal inspection, non-tender, supple, full range of motion Respiratory Exam: normal breath sounds, lungs clear, airway intact, No chest tenderness, No respiratory distress Cardiovascular Exam: regular rate/rhythm, normal heart sounds, normal peripheral pulses Gastrointestinal/Abdomen Exam: soft, normal bowel sounds, tenderness Pelvic Exam: not done Rectal Exam: not done Back Exam: normal inspection, normal range of motion, No CVA tenderness, No vertebral tenderness Extremity Exam: normal inspection, normal range of motion, pelvis stable Neurologic Exam: alert, 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, cooperative, stretcher operator II-XII nml as tested, normal mood/affect, nml cerebellar function, nml station & gait, sensation nml Skin Exam: normal color, warm, dry Lymphatic Exam: No adenopathy SpO2 Interpretation: normal SpO2: 97 O2 Delivery: Room Air - Course Nursing assessment & vital signs reviewed: Yes Ordered Tests: Active Orders 24 hr Category Date Time Status HEAD WITHOUT CONTRAST [CT] Stat Exams 06/22/23 18:31 Ordered - Progress Progress Note: 06/22/23 18:45 This patient's medical issue is 1 of low complexity. Level complexity in the workup performed is based on review of the patient's past medical history, review of the patient's medication list, review patient drug allergy list, history present illness and physical findings on examination. Workup of this patient includes CAT scan of the head without contrast. This patient care be transferred to Dr. Will at shift change. He will follow- up on the test results and make final disposition. Counseled pt/family regarding: diagnosis Medical Desision Making - Diagnostic Testing Diagnostic test were ordered, analyzed, and reviewed by me: No - Departure Departure Disposition: Home Clinical Impression: Left facial pain, Headache Condition: Stable Critical Care Time: No Referrals: LYNETTE WILLETT [Primary Care Provider] - Follow up/PCP as directed
--- NOTE | 2023-06-22 20:15 | XRAY ---
Indication: Left facial and posterior left ear pain. Multiple contiguous axial images obtained through the head without contrast. Comparison: November 14, 2022 Normal appearing brain parenchyma, ventricles, and bony calvarium. Visualized paranasal sinuses and mastoid air cells are clear. Impression: Continued normal CT head without contrast exam.
[2023-06-22 22:09] VITALS: BP 124/93; PULSE 67; RESP 17; O2SAT 98
== END 2023-06-22 22:12 | disposition home or self-care (01) ==
LOC: ED 17:43
DX: R51.9 Headache, unspecified (principal); R22.0 Localized swelling, mass and lump, head; I10 Essential (primary) hypertension; E11.9 Type 2 diabetes mellitus without complications; Z79.84 Long term (current) use of oral hypoglycemic drugs; Z79.899 Other long term (current) drug therapy
CPT/HCPCS: 70450; 99283

== ENCOUNTER 2023-10-26 05:32 | Day surgery (SDC) | payer BC ==
[2023-10-26 06:12] LABS: HCG URINE TEST NEGATIVE (NEGATIVE)
[2023-10-26 06:19] VITALS: RESP 18
[2023-10-26] MEDS: Lactated Ringers 1,000 ML IV SCH (06:41)
[2023-10-26 06:54] LABS: ANION GAP 13.6 MEQ/L (5-15); Calcium 8.8 mg/dL (8.4-10.2); Creatinine 1 0.84 mg/dL (0.52-1.04); EST GLOMERULAR FILTRATION RATE 99.5 ML/MIN; Potassium 3.6 mmol/L (3.5-5.1)
[2023-10-26] MEDS ORDERED: Xylocaine-Mpf 2% 5 Ml Vial ONE (07:45)
[2023-10-26] MEDS ORDERED: DIPRIVAN 200 MG/20 ML IV ONE ×2 (07:45→07:57)
[2023-10-26] MEDS ORDERED: Versed 2 MG/2 ML Injection ONE (07:45)
[2023-10-26] MEDS ORDERED: DEXMEDETOMIDINE 80 MCG/20ML-NS IV ONE (08:01)
[2023-10-26] MEDS ORDERED: ATROPINE SULFATE 1MG ONE (08:13)
[2023-10-26 08:45] VITALS: TEMP 97.4
[2023-10-26 08:59] VITALS: BP 116/74; PULSE 71; O2SAT 96
--- NOTE | 2023-10-26 09:09 | OP ---
SURGERY DATE/TIME: 10/26/2023 0745 PREOPERATIVE DIAGNOSIS: Melanotic stools. POSTOPERATIVE DIAGNOSES: 1) Normal upper scope. 2) Normal lower scope. PROCEDURES: 1) Esophagogastroduodenoscopy. 2) Colonoscopy. SURGEON: Dr. Willett. ANESTHESIA: Medications were given by the anesthesia department. HISTORY: The patient is a 23-year-old mulatto female who presents now for endoscopic evaluation. She apparently had some melanotic stools. The patient was felt the need to have endoscopic evaluation. She was appraised of the risks of the procedure including the risk of perforation, phlebitis, untoward reaction to medication, bleeding and missed lesions. The patient verbalized her understanding and desired to have the procedure performed. DESCRIPTION OF PROCEDURE: The patient was given the medications by the anesthesia department. She had continuous pulse oximetry, ECG monitoring and intermittent blood pressure monitoring during the examination. She was placed in the left lateral decubitus position. A bite block was placed. The flexible Olympus gastroscope was used to intubate the oropharynx. A view of the larynx was obtained and was normal. The scope was easily introduced in the esophagus which appeared to be normal throughout its length. The stomach was entered where normal gastric rugal folds were seen and these distended nicely with insufflation of air. The scope was passed along the greater curvature of the stomach to the antrum. The pylorus encountered and intubated. The duodenum inspected and found to be normal. The scope was withdrawn towards the stomach and a retroflex view was obtained of the lesser curvature, fundus and cardia regions of the stomach. These appeared to be essentially normal as well. The scope was then withdrawn from the patient. Next, a digital rectal examination was performed and revealed normal anal sphincter tone and no masses. The flexible Olympus pediatric colonoscope was used to intubate the rectum. A view of the colon was developed sequentially to the cecum including a short distance in the terminal ileum. Upon insertion and withdrawal including retroflex view in the rectum, no mucosal lesions were noted. The scope was removed from the patient who tolerated the procedure well and was sent to OP recovery in good condition. The prep was noted to be fair to good.
== END 2023-10-26 09:05 | disposition home or self-care (01) ==
LOC: SDC 05:32
PROVIDERS: ATTEND Family Medicine
DX: K92.1 Melena (principal); E11.9 Type 2 diabetes mellitus without complications
CPT/HCPCS: 36415; 80048; 81025; 82947; J0461; J2250; J2704

== ENCOUNTER 2024-08-22 15:07 | Emergency (ER) | payer BC, OTHER, SELFPAY ==
[2024-08-22 15:51] VITALS: TEMP 97.6
[2024-08-22 17:01] LABS: HCG URINE TEST NEGATIVE (NEGATIVE)
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
[2024-08-22] MEDS ORDERED: Norflex 100 MG Tablet PO ONE (18:33)
[2024-08-22 19:08] VITALS: BP 156/110; PULSE 70; RESP 18; O2SAT 99
[2024-08-22] MEDS: Norflex 100 MG Tablet PO ONE (19:23)
[2024-08-22] MEDS: Naprosyn 500 MG PO ONE (19:24)
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
== END 2024-08-22 19:30 | disposition home or self-care (01) ==
LOC: ED 15:07
DX: S16.1XXA Strain of muscle, fascia and tendon at neck level, initial encounter (principal); V89.2XXA Person injured in unspecified motor-vehicle accident, traffic, initial encounter; M25.511 Pain in right shoulder; I10 Essential (primary) hypertension; E11.9 Type 2 diabetes mellitus without complications; Z79.84 Long term (current) use of oral hypoglycemic drugs; Z79.899 Other long term (current) drug therapy
CPT/HCPCS: 72050; 81025; 99284; A9270-GY

== ENCOUNTER 2024-10-01 19:18 | Observation (INO) | payer OTHER ==
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
[2024-10-01 20:03] LABS: Absolute Neutrophil Ct (ANC) 4.48 x10^3/uL (1.56-6.13); BASOPHIL % 0.5 % (0.1-1.2); Basophil (Absolute #) 0.05 x10^3/uL (0.01-0.08); Eosinophil (Absolute #) 0.09 x10^3/uL (0.04-0.36); Hematocrit 40.5 % (34.1-44.9); Hemoglobin 13.5 g/dL (11.2-15.7); IMMATURE GRAN # 0.02 x10^3u/L (0.001-0.031); IMMATURE GRAN % 0.2 % (0.001-0.429); Lymphocyte (Absolute #) 4.08 x10^3/uL (1.18-3.74); Lymphocytes % 43.4 % (19.3-51.7); Mean Cell Volume 86.4 fL (79.4-94.8); Mean Corpuscular Hemoglobin 28.8 pg (25.6-32.2); Mean Corpuscular Hgb Concent. 33.3 g/dL (32.2-35.5); Monocyte (Absolute #) 0.68 x10^3/uL (0.24-0.86); Monocytes % 7.2 % (4.7-12.5); Neutrophil % 47.7 % (34.0-71.1); Platelet Count 300 x10^3/uL (182-369); Red Blood Count 4.69 x10^6/uL (3.93-5.22); Red Cell Distribution Width 11.9 % (11.7-14.4); White Blood Count 9.4 x10^3/uL (3.98-10.04)
[2024-10-01 20:15] LABS: ALBUMIN 4.6 g/dL (3.5-5.0); BILIRUBIN,TOTAL 0.6 mg/dL (0.2-1.3); Calcium 9.3 mg/dL (8.4-10.2); Creatinine 1 0.83 mg/dL (0.52-1.04); EST GLOMERULAR FILTRATION RATE 100.3 ML/MIN; Potassium 3.7 mmol/L (3.5-5.1); Total Protein 7.3 g/dL (6.3-8.2)
--- NOTE | 2024-10-01 22:27 | PCM.CONS ---
History of Present Illness - Reason for Consult Chief Complaint: Headache and vision changes Date of Consultation Date: 10/01/24 Reason for Consult: Headache and neuro changes Requesting Provider: Dr. Baird Consulting Provider: AJ AGUILA MD History of Present Illness: Reason for Consultation: Headache and neuro changes Chief complaint: Headache and R eye droop Time called: 2146 Patient seen: 2149 Spoke to ER: 2205 HPI: This is a 24 year old Afro Malaysian female with past medical history of hypertension, diabetes, pancreatic disease, migraine headache came to the hospital for concern for sudden onset of headache and right eye vision trouble. According to patient, she started having sudden onset of headache about an hour ago. She described headache as posterior slightly to the left and then she noticed that her right eye was shutting down in the form of inability to open the eye. She denies any significant visual field cut off or vision loss as such. There is some limitation in the peripheral vision but central vision appears to be OK. About a year ago a similar symptoms happened when she started having a headache and her left eye was shutting down. She tells me that since previous episode, her left eye is always shut and it is difficult for her to open the eye. However when she opens the eyes, she can see through it. She has seen the eye doctor and she was told that she will need a surgery for the left eye ptosis. No formal diagnosis was made in the past. when I asked whether patient got a brain MRI done, she denied. She told me that it was thought that she may have had a stroke. But she never got brain MRI done. She does have a history of migraine but this is different from her usual migraine. She will have migraine roughly 2 to three times per year. She's also feeling somewhat nauseous and does have photophobia today.she denies other localizing or lateralizing symptoms such as numbness, tingling, weakness, aphasia, slurred speech, facial droop. Of 9.4 hemoglobin 13.5 hematocrit 40.5 platelet count of 300 sodium 140 potassium 3.7 chloride 06/20/25 B UN8 creatinine .83 St. 44 alt 62 alkaline phosphatase of 139 Blood pressure 148 / 95 oxygen saturation of 99 respiratory rate of 18 and pulse rate of 67 Medical history: see above Surgical history: Cholecystectomy Family history: heart disease, hyperlipidemia, hypertension Social history: none Labs, Vitals, imaging personally reviewed. REVIEW OF SYSTEMS: 12-point review of system is negative unless otherwise mentioned in the HPI VITALS Vitals reviewed from today Physical Exam: (done with the help of RN) Constitutional: Gen: NAD, pleasant, well nourished HEENT: NC/AT CHRISTINA, Neurologic Exam: Higher Functions: AA&Ox3; Tracks; Regards Follows simple and complex commands Communicates fluently and appropriately Memory is intact Concentration is normal Fund of Knowledge is appropriate. Language : Comprehension is intact; no aphasia; no dysarthria; repetition is intact; naming is normal; CN II : Visual vizcaino appears Somewhat restricted in the peripheral vision on both sides CN III, IV, : EOMI; pursuit is smooth; no nystagmus, Left eye ptosis, R eye? CN V : Facial sensation is full and symmetric CN VII : Facial movement is full and symmetric CN VIII : hearing intact BL CN IX, X : LOUIS CN XI : SCM 5/5 BL CN XII : Tongue protrudes midline Sensory : intact to soft touch Motor : Strength 5/5 UE and LE BL Deep tendon reflexes : LOUIS Plantar response : LOUIS [id number] : normal BL, no dysmetria Abnormal Movements : none seen Gait and Station : Deferred Assessment: 24 year old Afro Malaysian female came to the hospital for headache and right eye vision changes. 1-Headache/R eye vision changes: Symptoms started roughly about an hour ago with the headache which started in the back with associated photophobia and nausea. She also then noticed right eye to be shutting down in a way that she is unable to completely open it. There is some restriction in the peripheral vision but central vision appears to be Ok. No visual field cut off. SHe's also complaining of some visual floaters and visual field obscurations. About a year ago, similar symptom happened in the form of headache and left eye shutting down. She told me ever since episode last year, her left eye is shut and she has been unable to open it. She has seen eye doctor and she was told that she will need a surgery for the left eye droop. No formal diagnosis was made. CTH reviewed from today and there is no acute intracranial process, personally reviewed images (official report pending) She never had an MRI brain done She does not have any other localizing or lateralizing neurological symptoms. No unilateral weakness, no paresthesias, no aphasia, no slurred speech, no painful eye movements. No neck rigidity. Etiology for neurological symptoms is unclear at this time. However it is important to rule out few neurological conditions such as cerebral venous sinus thrombosis, multiple sclerosis. She doesn't have typical history of headache from idiopathic intracranial hypertension but certainly that is also in the list of differential diagnosis. Another neurological condition to think about with ptosis could be myasthenia gravis and certainly can be checked Plan: MRI brain w/wout CTA/CTV TSH, B12 Check myasthenia panel Patient may need LP depending on the initial work up I communicate a plan with the ER physician. Thank you for allowing us to participate in this patients care. Please call [facility] with questions, concerns, or change in patients neurological status. This consult was performed via secure telemedicine 2 way audio/visual platform, patient consent obtained. This note was partially generated using a Dictation system, and there may be some incorrect words, spellings, and punctuation that were not noted in checking the note before saving. For clarifications, please call [facility]. Medications & Allergies Home Medications: Home Medication List Albuterol 2.5 mg/3 ml Neb [Proventil 2.5 mg/3 ml Neb] 2 puffs IH DAILY 10/05/23 [History Confirmed 10/01/24] Ergocalciferol (Vitamin D2) [Drisdol] 1 cap PO TID 10/05/23 [History Confirmed 10/01/24] Furosemide 20 mg [Lasix 20 mg] 20 mg PO DAILY PRN 10/05/23 [History Confirmed 10/01/24] Tiotropium [place] [Spiriva Respimat] 1 blist IH UD 10/05/23 [History Confirmed 10/01/24] Benztropine Mesylate 0.5 mg PO DAILY 10/26/23 [History Confirmed 10/01/24] Cabergoline 0.5 mg PO . TWICE A WEEK 10/01/24 [History Confirmed 10/01/24] Lipase/Protease/Amylase [Amena Boyd 24,000 Unit Capsule] 1 cap PO .WITH EVERY MEAL 10/01/24 [History Confirmed 10/01/24] Lumateperone Tosylate [Caplyta] 10.5 mg PO DAILY 10/01/24 [History Confirmed 10/01/24] Allergies/Adverse Reactions: Allergies Allergy/AdvReac Type Severity Reaction Status Date / Time mirtazapine [From Remeron] Allergy Severe Tightness Verified 10/01/24 19:41 of Throat hydrocodone Allergy Intermediate hallucionat Verified 10/01/24 19:41 ions - Past Medical History Past Medical History: Yes Neurological History: Migraines, Other ENT History: No Pertinent History Cardiac History: Arrhythmia, Hypertension Respiratory History: Asthma Endocrine Medical History: Diabetes Type II Musculoskelatal History: Fractures GI Medical History: Gallbladder Disease, Pancreatitis, Ulcer, Other History: No Pertinent History Pyscho-Social History: Anxiety, Bipolar, Depression, Other Reproductive Disorders: No Pertinent History, Other Comment: Heart Murmur and tachycardia (Seen by Dr. Warren for cardiac conditions), R foot fx, unknown bone disease, Vertigo, Ovarian cysts, neurogenic bladder, PTSD, and borderline personality disorder, head injury - Female History Hx Last Menstrual Period: 2 weeks ago Are you now?: No - Past Surgical History Past Surgical History: Yes Neuro Surgical History: No Pertinent History Cardiac History: No Pertinent History Respiratory Surgery: No Pertinent History GI Surgical History: Cholecystectomy, Exploratory Laparoscopy, Other Genitourinary Surgical Hx: No Pertinent History Musculskeletal Surgical Hx: Orthopedic Surgery Female Surgical History: No Pertinent History Other Surgical History: EGD, colonoscopy, ERCP, foot and shoulder surgeries - Social History Smoking Status: Never smoker Exposure to second hand smoke: Yes Alcohol: None Drug Use: none - Social Determinants of Health Will the patient participate in the screening: Yes Do you worry about a steady place to live?: No Do you have any problems with any of the following?: No known problems In the past 12 months,have you had to go without utilities?: No Have you or anyone in your house had to go without enough: No Transportation Issues: No Has anyone in your support network made you feel unsafe?: No - Physical Exam Vital Signs: Vital Signs - 24 hr Temp Pulse Resp BP BP Pulse Ox 10/01/24 22:13 98 10/01/24 21:20 67 18 148/95 99 10/01/24 21:10 98 10/01/24 21:05 100 10/01/24 20:33 98 10/01/24 20:30 72 18 145/93 98 10/01/24 20:12 148/114 98 10/01/24 19:31 150/124 99 10/01/24 19:30 98.6 F 90 18 150/124 98 Results - Labs Lab/Micro Results: Lab Results-Last 24 Hours 10/01/24 10/01/24 10/01/24 Range/Units 20:00 20:00 20:00 WBC 9.4 (3.98-10.04) x10^3/uL RBC 4.69 (3.93-5.22) x10^6/uL Hgb 13.5 (11.2-15.7) g/dL Hct 40.5 (34.1-44.9) % MCV 86.4 (79.4-94.8) fL MCH 28.8 (25.6-32.2) pg MCHC 33.3 (32.2-35.5) g/dL RDW 11.9 (11.7-14.4) % Plt Count 300 (182-369) x10^3/uL MPV 10.0 (9.4-12.3) fL Gran % 47.7 (34.0-71.1) % Immature Gran % (Auto) 0.2 (0.001-0.429) % Nucleat RBC Rel Count 0.0 (0.00-0.2) % Eos # (Auto) 0.09 (0.04-0.36) x10^3/uL Immature Gran # (Auto) 0.02 (0.001-0.031) x10^3u/L Absolute Lymphs (auto) 4.08 H (1.18-3.74) x10^3/uL Absolute Monos (auto) 0.68 (0.24-0.86) x10^3/uL Absolute Nucleated RBC 0.00 (0.00-0.012) x10^3u/L Lymphocytes % 43.4 (19.3-51.7) % Monocytes % 7.2 (4.7-12.5) % Eosinophils % 1.0 (0.7-5.8) % Basophils % 0.5 (0.1-1.2) % Absolute Granulocytes 4.48 (1.56-6.13) x10^3/uL Basophils # 0.05 (0.01-0.08) x10^3/uL Sodium 140 (135-145) mmol/L Potassium 3.7 (3.5-5.1) mmol/L Chloride 103 (98-107) mmol/L Carbon Dioxide 26 (22-30) mmol/L Anion Gap 15.0 (5-15) MEQ/L BUN 8 (7-17) mg/dL Creatinine 0.83 (0.52-1.04) mg/dL Estimated GFR 100.3 ML/MIN Glucose 96 (74-106) mg/dL Calcium 9.3 (8.4-10.2) mg/dL Total Bilirubin 0.60 (0.2-1.3) mg/dL AST 44 H (14-36) U/L ALT 62 H (0-35) U/L Alkaline Phosphatase 139 H (38-126) U/L Troponin I < 0.012 (0.000-0.033) ng/mL Serum Total Protein 7.3 (6.3-8.2) g/dL Albumin 4.6 (3.5-5.0) g/dL - Radiology Impressions Radiology Exams & Impressions: Radiology Procedures Category Date Time Status CT ANGIOGRAPHY NECK [CT] Stat Exams 10/01/24 22:10 Ordered CTA HEAD W AND/OR WO CONTRAST [CT] Stat Exams 10/01/24 22:11 Ordered HEAD WITH CONTRAST [CT] Stat Exams 10/01/24 22:17 Ordered HEAD WITHOUT CONTRAST [CT] Stat Exams 10/01/24 19:50 Taken
[2024-10-01 22:45] LABS: HCG URINE TEST NEGATIVE (NEGATIVE)
[2024-10-01 22:49] LABS: Appearance Clear (Clear); Bacteria Rare /HPF (None Seen); Bilirubin Negative (Negative); Blood Negative (Negative); Epithelial Cells Few /HPF (None Seen); Glucose, Urine Negative (Negative); Hyaline Casts NONE SEEN /LPF (0-2); Ketones Negative (Negative); Leukocyte Esterase Moderate (Negative); Nitrite Negative (Negative); Ph 7.5 (4.6-8.0); Protein,Urine Dip Negative (Negative); RBC 0-2 /HPF (0-5); Specific Gravity 1.015 (1.005-1.030)
--- NOTE | 2024-10-01 23:40 | XRAY ---
CLINICAL HISTORY: LVO COMPARISON: - TECHNIQUE: Contrast enhanced thin slice CT angiography scan of the carotid vessels was performed with intravenous contrast. Angiographic images were processed, 3D MIP images were acquired for interpretation.Contiguous axial images were obtained. Reformatted coronal and sagittal images were also reviewed. If IV contrast material had not been administered, the likelihood of detecting abnormalities relevant to the patients condition would have been substantially decreased. CT scan was performed according to ALARA (as low as reasonable achievable). FINDINGS: Included great vessels of the aortic arch are grossly unremarkable. Common carotid artery, carotid Bulb, internal carotid artery , and origin of the external carotid artery are well opacified. Vertebral arteries are well opacified. Jugular veins are well opacified. Included lung apices are grossly unremarkable. Thyroid gland appears unremarkable. IMPRESSION: 1. No evidence of stenosis or aneurysm. No evidence of dissection. Electronically Signed by: Shane Barrow MD. (10/01/2024 23:35:15 EDT)
--- NOTE | 2024-10-02 00:01 | XRAY ---
CLINICAL HISTORY: LVO COMPARISON: None TECHNIQUE: Contrast enhanced thin slice CT angiography scan of the cerebral vessels was performed with intravenous contrast. Contiguous axial images were obtained. Reformatted coronal and sagittal images were also reviewed. If IV contrast material had not been administered, the likelihood of detecting abnormalities relevant to the patient's condition would have been substantially decreased. CT scan was performed according to ALARA (as low as reasonably achievable). FINDINGS: Bilateral internal carotid arteries show normal course, caliber and opacification in the canalicular and cavernous part. Their division into the anterior cerebral artery and middle cerebral artery is defined. A1, A2 and M1, M2 segments are normal on both the sides. Bilateral vertebral arteries are seen to unite the form the basilar artery in a normal fashion. Basilar artery shows normal course, caliber and opacification. Its division into the posterior cerebral arteries is defined. Bilateral P1 and P2 segments are normal. Visualized venous structures show normal opacification. No evidence of intracranial aneurysm or AV malformation is seen. IMPRESSION: 1. No evidence of stenosis or aneurysm. No evidence of dissection. Electronically Signed by: Shane Barorw MD. (10/01/2024 23:57:47 EDT)
--- NOTE | 2024-10-02 00:03 | XRAY ---
CLINICAL HISTORY: cerebral benous sinus thrombosis COMPARISON: None TECHNIQUE: Multiple contiguous axial images are obtained from the skull base to the vertex after administration of IV contrast. If IV contrast material had not been administered, the likelihood of detecting abnormalities relevant to the patient's condition would have been substantially decreased. CT scan was performed according to ALARA (as low as reasonably achievable). FINDINGS: The brain demonstrates normal morphology, attenuation, and volume for age. No evidence of space occupying lesion, hemorrhage, edema, mass effect, midline shift, extra axial collection, or hydrocephalus is noted. Ventricles, sulci, and basal cisterns are symmetric and normal in size and configuration. No abnormal enhancement is seen following administration of IV contrast. The paranasal sinuses and mastoid air cells are well aerated. Orbital contents are within normal limits. The bony calvarium is intact. The cerebral venous sinuses are well opacified and are unremarkable. IMPRESSION: 1. No acute intracranial abnormality or abnormal enhancement.? 2. No evidence of cerebral venous sinus thrombosis. Electronically Signed by: Shane Barrow MD. (10/01/2024 23:59:44 EDT)
[2024-10-02] MEDS ORDERED: ROCEPHIN 1 GM / 100 ML NaCl 1 GM/100 ML IVPB IV ONE (00:25)
[2024-10-02] MEDS: ROCEPHIN 1 GM / 100 ML NaCl 1 GM/100 ML IVPB IV ONE (00:27)
[2024-10-02] MEDS ORDERED: TORAdol 30 mg Injection ONE (00:44)
[2024-10-02] MEDS: TORAdol 30 mg Injection IV ONE (00:49)
[2024-10-02] MEDS ORDERED: HUMALOG SQ PRN (01:54)
--- NOTE | 2024-10-02 01:54 | PCM.HP ---
History of Present Illness - Chief Complaint Chief Complaint: headache, vision changes Date: 10/01/24 History of Present Illness: 24 years old young lady with past medical history significant for diabetes mellitus type 2 getting controlled with diet, hypertension not taking any antihypertensives for 1 month, asthma, chronic pancreatic insufficiency chronic leg swelling taking Lasix as needed, history of migraine, came to the ER sudden onset of headache on the left side with right eye ptosis. She told me 1 year ago she got headache followed by left eye ptosis and vision loss. She does not get any MRI at that time to rule out stroke. She denied having any weakness numbness ataxia, she complain of some nausea. In regard to headache she told me is already getting better, in the ER hemodynamically she was stable, blood workup unremarkable urine was positive for infection. she was seen by teleneurologist in the ER, CT angio head and neck remain negative patient admitted for MRI to rule out stroke. - Review of Systems All Other Systems: Reviewed and Negative (14 systems reviewed and marked -ve except mentioned in [facility]) Medications & Allergies Home Medications: Home Medication List Albuterol 2.5 mg/3 ml Neb [Proventil 2.5 mg/3 ml Neb] 2 puffs IH DAILY 10/05/23 [History Confirmed 10/01/24] Ergocalciferol (Vitamin D2) [Drisdol] 1 cap PO TID 10/05/23 [History Confirmed 10/01/24] Furosemide 20 mg [Lasix 20 mg] 20 mg PO DAILY PRN 10/05/23 [History Confirmed 10/01/24] Tiotropium Mcdonald [Spiriva Respimat] 1 blist IH UD 10/05/23 [History Confirmed 10/01/24] Benztropine Mesylate 0.5 mg PO DAILY 10/26/23 [History Confirmed 10/01/24] Cabergoline 0.5 mg PO . TWICE A WEEK 10/01/24 [History Confirmed 10/01/24] Lipase/Protease/Amylase [Amena Boyd 24,000 Unit Capsule] 1 cap PO .WITH EVERY MEAL 10/01/24 [History Confirmed 10/01/24] Lumateperone Tosylate [Caplyta] 10.5 mg PO DAILY 10/01/24 [History Confirmed 10/01/24] Budesonide/Formoterol Fumarate [Budesonide-Formoterol 160-4.5] 2 puffs IH BID 10/02/24 [History Confirmed 10/02/24] Allergies/Adverse Reactions: Allergies Allergy/AdvReac Type Severity Reaction Status Date / Time mirtazapine [From Remeron] Allergy Severe Tightness Verified 10/01/24 19:41 of Throat hydrocodone Allergy Intermediate hallucionat Verified 10/01/24 19:41 ions - Past Medical History Past Medical History: Yes Neurological History: Migraines, Other ENT History: No Pertinent History Cardiac History: Arrhythmia, Hypertension Respiratory History: Asthma Endocrine Medical History: Diabetes Type II Musculoskelatal History: Fractures GI Medical History: Gallbladder Disease, Pancreatitis, Ulcer, Other History: No Pertinent History Pyscho-Social History: Anxiety, Bipolar, Depression, Other Reproductive Disorders: No Pertinent History, Other Comment: Heart Murmur and tachycardia (Seen by Dr. Warren for cardiac conditions), R foot fx, unknown bone disease, Vertigo, Ovarian cysts, neurogenic bladder, PTSD, and borderline personality disorder, head injury - Female History Are you now?: No - Past Surgical History Past Surgical History: Yes Neuro Surgical History: No Pertinent History Cardiac History: No Pertinent History Respiratory Surgery: No Pertinent History GI Surgical History: Cholecystectomy, Exploratory Laparoscopy, Other Genitourinary Surgical Hx: No Pertinent History Musculskeletal Surgical Hx: Orthopedic Surgery Female Surgical History: No Pertinent History Other Surgical History: EGD, colonoscopy, ERCP, foot and shoulder surgeries Significant Family History: no pertinent family hx - Social History Smoking Status: Never smoker Exposure to second hand smoke: Yes Alcohol: None Drug Use: none - Social Determinants of Health Will the patient participate in the screening: Yes Do you worry about a steady place to live?: No Do you have any problems with any of the following?: No known problems In the past 12 months,have you had to go without utilities?: No Have you or anyone in your house had to go without enough: No Transportation Issues: No Has anyone in your support network made you feel unsafe?: No Does the patient want assistance with any of the above?: No - Physical Exam Vital Signs: Vital Signs - 24 hr Temp Pulse Resp BP BP Pulse Ox 10/02/24 01:17 97.9 F 75 17 167/93 97 10/02/24 00:42 98 10/02/24 00:30 70 20 129/87 99 10/02/24 00:20 79 15 98 10/02/24 00:10 73 17 99 10/02/24 00:08 75 12 98 10/01/24 23:30 146/98 10/01/24 23:07 70 18 170/114 99 10/01/24 22:31 152/99 10/01/24 22:00 85 18 158/103 99 10/01/24 21:30 162/101 98 10/01/24 21:27 148/95 99 10/01/24 21:26 98 10/01/24 21:20 67 18 148/95 99 10/01/24 21:10 98 10/01/24 21:05 100 10/01/24 20:33 98 10/01/24 20:30 72 18 145/93 98 10/01/24 20:12 148/114 98 10/01/24 19:31 150/124 99 10/01/24 19:30 98.6 F 90 18 150/124 98 Additional Findings: 10/02/24 01:48 HEENT Young aged, Obese built in no distress NECK Supple,no thyromegaly, CVS S1+S2 + 0, no murmers RESP Bilateral equal air entry without Crepts/Wheezes heard GIT Soft non tender,non distended Skin, No rah, no Bruises LEGS No Edema PSYCH Normal,mood, judgement and insight NEURO AOX3, no focal deficit Results - Labs Lab/Micro Results: Lab Results-Last 24 Hours 10/01/24 10/01/24 10/01/24 Range/Units 20:00 20:00 20:00 WBC 9.4 (3.98-10.04) x10^3/uL RBC 4.69 (3.93-5.22) x10^6/uL Hgb 13.5 (11.2-15.7) g/dL Hct 40.5 (34.1-44.9) % MCV 86.4 (79.4-94.8) fL MCH 28.8 (25.6-32.2) pg MCHC 33.3 (32.2-35.5) g/dL RDW 11.9 (11.7-14.4) % Plt Count 300 (182-369) x10^3/uL MPV 10.0 (9.4-12.3) fL Gran % 47.7 (34.0-71.1) % Immature Gran % (Auto) 0.2 (0.001-0.429) % Nucleat RBC Rel Count 0.0 (0.00-0.2) % Eos # (Auto) 0.09 (0.04-0.36) x10^3/uL Immature Gran # (Auto) 0.02 (0.001-0.031) x10^3u/L Absolute Lymphs (auto) 4.08 H (1.18-3.74) x10^3/uL Absolute Monos (auto) 0.68 (0.24-0.86) x10^3/uL Absolute Nucleated RBC 0.00 (0.00-0.012) x10^3u/L Lymphocytes % 43.4 (19.3-51.7) % Monocytes % 7.2 (4.7-12.5) % Eosinophils % 1.0 (0.7-5.8) % Basophils % 0.5 (0.1-1.2) % Absolute Granulocytes 4.48 (1.56-6.13) x10^3/uL Basophils # 0.05 (0.01-0.08) x10^3/uL Sodium 140 (135-145) mmol/L Potassium 3.7 (3.5-5.1) mmol/L Chloride 103 (98-107) mmol/L Carbon Dioxide 26 (22-30) mmol/L Anion Gap 15.0 (5-15) MEQ/L BUN 8 (7-17) mg/dL Creatinine 0.83 (0.52-1.04) mg/dL Estimated GFR 100.3 ML/MIN Glucose 96 (74-106) mg/dL Calcium 9.3 (8.4-10.2) mg/dL Total Bilirubin 0.60 (0.2-1.3) mg/dL AST 44 H (14-36) U/L ALT 62 H (0-35) U/L Alkaline Phosphatase 139 H (38-126) U/L Troponin I < 0.012 (0.000-0.033) ng/mL Serum Total Protein 7.3 (6.3-8.2) g/dL Albumin 4.6 (3.5-5.0) g/dL Urine Color (Yellow) Urine Appearance (Clear) Urine pH (4.6-8.0) Ur Specific Eckley (1.005-1.030) Urine Protein (Negative) Urine Glucose (UA) (Negative) mg/dL Urine Ketones (Negative) Urine Blood (Negative) Urine Nitrite (Negative) Urine Bilirubin (Negative) Urine Urobilinogen (0.2) mg/dL Ur Leukocyte Esterase (Negative) U Hyaline Cast (Auto) (0-2) /LPF Urine Microscopic RBC (0-5) /HPF Urine Microscopic WBC (0-5) /HPF Ur Epithelial Cells (None Seen) /HPF Urine Bacteria (None Seen) /HPF Urine Culture Reflexed (NO) Urine HCG, Qual (NEGATIVE) 10/01/24 10/01/24 10/02/24 Range/Units 22:26 22:26 00:18 WBC (3.98-10.04) x10^3/uL RBC (3.93-5.22) x10^6/uL Hgb (11.2-15.7) g/dL Hct (34.1-44.9) % MCV (79.4-94.8) fL MCH (25.6-32.2) pg MCHC (32.2-35.5) g/dL RDW (11.7-14.4) % Plt Count (182-369) x10^3/uL MPV (9.4-12.3) fL Gran % (34.0-71.1) % Immature Gran % (Auto) (0.001-0.429) % Nucleat RBC Rel Count (0.00-0.2) % Eos # (Auto) (0.04-0.36) x10^3/uL Immature Gran # (Auto) (0.001-0.031) x10^3u/L Absolute Lymphs (auto) (1.18-3.74) x10^3/uL Absolute Monos (auto) (0.24-0.86) x10^3/uL Absolute Nucleated RBC (0.00-0.012) x10^3u/L Lymphocytes % (19.3-51.7) % Monocytes % (4.7-12.5) % Eosinophils % (0.7-5.8) % Basophils % (0.1-1.2) % Absolute Granulocytes (1.56-6.13) x10^3/uL Basophils # (0.01-0.08) x10^3/uL Sodium (135-145) mmol/L Potassium (3.5-5.1) mmol/L Chloride (98-107) mmol/L Carbon Dioxide (22-30) mmol/L Anion Gap (5-15) MEQ/L BUN (7-17) mg/dL Creatinine (0.52-1.04) mg/dL Estimated GFR ML/MIN Glucose (74-106) mg/dL Calcium (8.4-10.2) mg/dL Total Bilirubin (0.2-1.3) mg/dL AST (14-36) U/L ALT (0-35) U/L Alkaline Phosphatase (38-126) U/L Troponin I < 0.012 (0.000-0.033) ng/mL Serum Total Protein (6.3-8.2) g/dL Albumin (3.5-5.0) g/dL Urine Color Yellow (Yellow) Urine Appearance Clear (Clear) Urine pH 7.5 (4.6-8.0) Ur Specific Eckley 1.015 (1.005-1.030) Urine Protein Negative (Negative) Urine Glucose (UA) Negative (Negative) mg/dL Urine Ketones Negative (Negative) Urine Blood Negative (Negative) Urine Nitrite Negative (Negative) Urine Bilirubin Negative (Negative) Urine Urobilinogen 1.0 A (0.2) mg/dL Ur Leukocyte Esterase Moderate A (Negative) U Hyaline Cast (Auto) NONE SEEN (0-2) /LPF Urine Microscopic RBC 0-2 (0-5) /HPF Urine Microscopic WBC 11-20 A (0-5) /HPF Ur Epithelial Cells Few (None Seen) /HPF Urine Bacteria Rare A (None Seen) /HPF Urine Culture Reflexed YES (NO) Urine HCG, Qual NEGATIVE (NEGATIVE) - Radiology Impressions Radiology Exams & Impressions: Radiology Procedures Category Date Time Status CT ANGIOGRAPHY NECK [CT] Stat Exams 10/01/24 22:10 Completed CTA HEAD W AND/OR WO CONTRAST [CT] Stat Exams 10/01/24 22:11 Completed HEAD WITH CONTRAST [CT] Stat Exams 10/01/24 22:17 Completed HEAD WITHOUT CONTRAST [CT] Stat Exams 10/01/24 19:50 Taken Assessment/Plan (1) Headache Current Visit: Yes Status: Acute Code(s): R51 - HEADACHE * DO NOT USE * (2) UTI (urinary tract infection) Current Visit: Yes Status: Acute Code(s): N39.0 - URINARY TRACT INFECTION, SITE NOT SPECIFIED (3) Diabetes mellitus Current Visit: Yes Status: Acute Code(s): E11.9 - TYPE 2 DIABETES MELLITUS WITHOUT COMPLICATIONS (4) Hypertension Current Visit: Yes Status: Acute Code(s): I10 - ESSENTIAL (PRIMARY) HYPERTENSION Telemedicine Encounter - Telemedicine Encounter Telemedicine Encounter: The entirety of this encounter was performed via Telemedicine"This visit was performed using real-time audio and video connection between my location and thepatients locationwith the assistance of a surrogateat the patients location. Written or verbal consent was obtained from the patient/guardian to perform this visit [email or web address]. Any patient questions regarding the telemedicine interaction were answered. Headache with ptosis and vision changes in right eye Patient reported having similar episode 1 year ago followed by vision loss in her left eye. She told me she is following up eyeglass fitter regularly CT head unremarkable CT angio head and neck unremarkable for aneurysm/stenosis Patient is getting admitted for MRI rule out stroke May consider MRV as well to rule out venous thrombosis Tele neuro inputs appreciated Hypertension Patient is not taking any meds for 1 month Will start with hydrochlorothiazide Target blood pressure should be less than 130/80 Urinary tract infection Urine +ve for LE/WBC Started on ceftriaxone Keep f/up cultures Diabetes mellitus type 2 As per patient she is controlling with diet Will check HbA1c Continue sliding scale coverage Asthma Resume home inhalers Resume Spiriva Chronic pancreatic insufficiency Continue Creon's Obesity/chronic lower extremity swelling Patient takes Lasix as needed With exercise and diet advised weight reduction Social determinant of health Noncompliance not taking any antihypertensives and antidiabetics DVT prophylaxis SCD/Lovenox CODE STATUS full Discharge planning pending clinical stability. I have reviewed patient lab vitals and imaging detail all question and concerns addressed
[2024-10-02] MEDS ORDERED: [UNRECOGNIZED DRUG - OTHER] PO SCH (02:00)
[2024-10-02] MEDS ORDERED: AMYLASE PO SCH (02:00)
[2024-10-02] MEDS ORDERED: NON-FORMULARY ITEM (Tiotropium Bromide [Spiriva Respimat] 4 GM Mist.Inhal) IH SCH (02:00)
[2024-10-02] MEDS ORDERED: LIPASE PO SCH (02:00)
[2024-10-02] MEDS ORDERED: CABERGOLINE 0.5 MG PO SCH (02:00)
[2024-10-02] MEDS ORDERED: PROTEASE PO SCH (02:00)
[2024-10-02] MEDS ORDERED: APRESOLINE 20 MG/ML INJ IV PRN (02:07)
[2024-10-02 05:02] LABS: Hematocrit 40.7 % (34.1-44.9); Hemoglobin 13.5 g/dL (11.2-15.7); Mean Corpuscular Hemoglobin 28.5 pg (25.6-32.2); Mean Corpuscular Hgb Concent. 33.2 g/dL (32.2-35.5); Mean Platelet Volume 10.5 fL (9.4-12.3); Platelet Count 316 x10^3/uL (182-369); Red Blood Count 4.73 x10^6/uL (3.93-5.22); Red Cell Distribution Width 11.9 % (11.7-14.4); White Blood Count 8.9 x10^3/uL (3.98-10.04)
[2024-10-02 05:40] LABS: ANION GAP 14.6 MEQ/L (5-15); Calcium 8.8 mg/dL (8.4-10.2); Creatinine 1 0.74 mg/dL (0.52-1.04); EST GLOMERULAR FILTRATION RATE 115.1 ML/MIN; Potassium 3.7 mmol/L (3.5-5.1)
[2024-10-02] MEDS: MOTRIN 600 MG PO PRN ×2 (06:33→17:32)
--- NOTE | 2024-10-02 07:42 | XRAY ---
Indication: Headache. Multiple contiguous axial images obtained through the head without contrast. Comparison: June 22, 2023. Normal appearing brain parenchyma, ventricles, and bony calvarium. Visualized paranasal sinuses and mastoid air cells are clear. Impression: Continued normal CT head without contrast exam.
[2024-10-02] MEDS ORDERED: MEDICATION INTERVENTION MC SCH ×5 (07:45)
[2024-10-02] MEDS: COGENTIN 0.5 MG PO SCH (09:34)
[2024-10-02] MEDS: ENOXAPARIN SODIUM SQ SCH (09:35)
[2024-10-02] MEDS: ZENPEP DR 5,000 UNIT CAPSULE PO SCH (09:38)
[2024-10-02] MEDS: hydroDIURIL 25 MG PO SCH (09:40)
[2024-10-02] MEDS ORDERED: LUMATEPERONE TOSYLATE PO SCH (10:00)
[2024-10-02] MEDS ORDERED: VITAMIN D2 PO SCH (10:00)
[2024-10-02] MEDS ORDERED: NON-FORMULARY ITEM (Budesonide/Formoterol Fumarate [Budesonide-Formoterol 160-4.5] 10.2 GM IH SCH (10:00)
[2024-10-02] MEDS ORDERED: Zofran 4 MG/2 ML VIAL ONE (11:37)
[2024-10-02] MEDS: Zofran 4 MG/2 ML VIAL IV PRN (11:45)
--- NOTE | 2024-10-02 14:56 | XRAY ---
CLINICAL HISTORY: R/o Stroke COMPARISON: CT conducted the same day reviewed. TECHNIQUE: Different pulse sequences were performed in different planes without GD-DTPA injection for the brain. Images were sent through PACs for interpretation. FINDINGS: Brain Parenchyma: Normal signal intensity in the cerebral hemispheres, cerebellum, and brainstem. No hyperacute or acute infarctions could be depicted. No intracerebral or extra-axial hematomas or masses. Prominent Virchow's Jose spaces of the centrum semi-ovale Ventricular System: Ventricles are normal in size and configuration. Temporal horns of bilateral lateral ventricles are seen. No evidence of hydrocephalus or ventricular enlargement. Subarachnoid Spaces: Normal sulci and cisterns. No evidence of subarachnoid hemorrhage or extra-axial fluid collections. Cerebellum and Brainstem: Normal size and signal. No masses, lesions, or areas of abnormal signal. Pituitary Gland: Normal size and morphology. No evidence of pituitary adenoma or other sellar/suprasellar mass. Orbits: Normal appearance of the globes, optic nerves, and extraocular muscles. No evidence of orbital masses or abnormal signal. Sinuses: Clear paranasal sinuses. No evidence of sinusitis or mucosal thickening. Mastoid Air Cells: Clear mastoid air cells. No evidence of mastoiditis. Vascular Structures: Major intracranial vessels appear unremarkable. Skull and Meninges: Normal skull morphology. No evidence of meningeal enhancement or thickening. Note is made of bilateral subcentimeter intraparotid lymph nodes. IMPRESSION: No acute intracranial abnormality. Electronically Signed by: Billy Mckee MD. (10/02/2024 14:51:48 EDT)
[2024-10-02] MEDS: PROVENTIL 2.5 MG/3 ML NEB IH SCH (16:09)
[2024-10-02 19:35] LABS: TSH, 3RD Generation 3.888 mIU/L (0.470-4.680)
[2024-10-02] MEDS: ROCEPHIN 1 GM / 100 ML NaCl 1 GM/100 ML IVPB IV SCH (22:27)
[2024-10-03 04:54] LABS: BASOPHIL % 0.4 % (0.1-1.2); Basophil (Absolute #) 0.03 x10^3/uL (0.01-0.08); Eosinophil % 1.1 % (0.7-5.8); Eosinophil (Absolute #) 0.08 x10^3/uL (0.04-0.36); Hematocrit 40.9 % (34.1-44.9); Hemoglobin 13.3 g/dL (11.2-15.7); IMMATURE GRAN # 0.01 x10^3u/L (0.001-0.031); IMMATURE GRAN % 0.1 % (0.001-0.429); Lymphocyte (Absolute #) 3.31 x10^3/uL (1.18-3.74); Lymphocytes % 44.3 % (19.3-51.7); Mean Cell Volume 86.3 fL (79.4-94.8); Mean Corpuscular Hemoglobin 28.1 pg (25.6-32.2); Mean Corpuscular Hgb Concent. 32.5 g/dL (32.2-35.5); Mean Platelet Volume 10.3 fL (9.4-12.3); Monocyte (Absolute #) 0.55 x10^3/uL (0.24-0.86); Monocytes % 7.4 % (4.7-12.5); Neutrophil % 46.7 % (34.0-71.1); Platelet Count 298 x10^3/uL (182-369); Red Blood Count 4.74 x10^6/uL (3.93-5.22); Red Cell Distribution Width 11.8 % (11.7-14.4); White Blood Count 7.5 x10^3/uL (3.98-10.04)
[2024-10-03 05:20] LABS: ANION GAP 12.9 MEQ/L (5-15); BILIRUBIN,TOTAL 0.5 mg/dL (0.2-1.3); Calcium 8.7 mg/dL (8.4-10.2); Creatinine 1 0.79 mg/dL (0.52-1.04); EST GLOMERULAR FILTRATION RATE 106.4 ML/MIN; Potassium 3.8 mmol/L (3.5-5.1); Total Protein 6.6 g/dL (6.3-8.2)
--- NOTE | 2024-10-03 11:58 | PCM.NOTE ---
Date and Time: 10/03/24 1156 Subjective Assessment: [facility] Follow up Progress Note: patient seen at the bedside. Patient still complaints of mild headache which is 4 out of 10 intensity and is in the back of the head. She otherwise feels OK. Left eye continues to be shut. This is a chronic finding for her. No visual field deficits. Patient had brain MRI which is negative for any concerning process. Med Hx, Surgical Hx, Family Hx, Social hx reviewed Labs, Vitals, imaging personally reviewed. REVIEW OF SYSTEMS: 12-point review of system is negative unless otherwise mentioned in the HPI VITALS Vitals reviewed from today Physical Exam: (done with the help of RN) Constitutional: Gen: NAD, pleasant, well nourished HEENT: NC/AT CHRISTINA, Neurologic Exam: Higher Functions: AA&Ox3; Tracks; Regards Follows simple and complex commands Communicates fluently and appropriately Memory is intact Concentration is normal Fund of Knowledge is appropriate. Language : Comprehension is intact; no aphasia; no dysarthria; repetition is intact; naming is normal; CN II : Visual vizcaino appears Somewhat restricted in the peripheral vision on both sides CN III, IV, : EOMI; pursuit is smooth; no nystagmus, Left eye ptosis, R eye? CN V : Facial sensation is full and symmetric CN VII : Facial movement is full and symmetric CN VIII : hearing intact BL CN IX, X : LOUIS CN XI : SCM 5/5 BL CN XII : Tongue protrudes midline Sensory : intact to soft touch Motor : Strength 5/5 UE and LE BL Deep tendon reflexes : LOUIS Plantar response : LOUIS [id number] : normal BL, no dysmetria Abnormal Movements : none seen Gait and Station : Deferred Assessment: 24 year old Afro Egyptian female came to the hospital for headache and right eye vision changes. 1-Headache/R eye vision changes: Symptoms started roughly about an hour ago with the headache which started in the back with associated photophobia and nausea. She also then noticed right eye to be shutting down in a way that she is unable to completely open it. There is some restriction in the peripheral vision but central vision appears to be Ok. No visual field cut off. SHe's also complaining of some visual floaters and visual field obscurations. About a year ago, similar symptom happened in the form of headache and left eye shutting down. She told me ever since episode last year, her left eye is shut and she has been unable to open it. She has seen eye doctor and she was told that she will need a surgery for the left eye droop. No formal diagnosis was made. CTH reviewed from today and there is no acute intracranial process, personally reviewed images (official report pending) She never had an MRI brain done She does not have any other localizing or lateralizing neurological symptoms. No unilateral weakness, no paresthesias, no aphasia, no slurred speech, no painful eye movements. No neck rigidity. Etiology for neurological symptoms is unclear at this time. However it is important to rule out few neurological conditions such as cerebral venous sinus thrombosis, multiple sclerosis. She doesn't have typical history of headache from idiopathic intracranial hypertension but certainly that is also in the list of differential diagnosis. Another neurological condition to think about with ptosis could be myasthenia gravis and certainly can be checked. 10/03/24: patient is doing somewhat better but still complaining of headache which is 4 out of 10 intensity and is on the back of the head. She continues to feel the same. MRI brain is negative. CT/CTA -ve, venous structures without abnormal opacification per report Idiopathic intracranial hypertension remains in the differential diagnosis, though seems low probability. However idiopathic intracranial hypertension can have associated cranial nerve deficits. Plan: LP to rule out IIH Ophthalmology eval if possible. Check Myasthenia panel if not already obtained. Thank you for allowing us to participate in this patients care. Please call [facility] with questions, concerns, or change in patients neurological status. This consult was performed via secure telemedicine 2 way audio/visual platform, patient consent obtained. This note was partially generated using a Dictation system, and there may be some incorrect words, spellings, and punctuation that were not noted in checking the note before saving. For clarifications, please call [facility] [employer]. Objective Data Vital Signs: Vital Signs - 24 hr Temp Pulse Resp BP Pulse Ox 10/03/24 11:29 97.8 F 87 20 141/88 94 L 10/03/24 07:35 97.7 F 92 H 12 129/71 96 10/03/24 05:31 107 H 18 95 10/03/24 04:00 97.2 F 71 16 132/81 95 10/03/24 00:00 97.9 F 76 19 134/78 97 10/02/24 20:00 97.8 F 79 16 132/88 98 10/02/24 19:35 98 10/02/24 16:10 74 14 98 10/02/24 16:00 97.5 F 93 H 24 132/87 95 10/02/24 12:00 97.9 F 71 20 131/82 94 L Pain Assessment - Last Documented Pain Intensity 4 Pain Scale Used 0-10 Pain Scale Intake and Output: Intake & Output 10/01/24 10/02/24 10/03/24 10/04/24 06:59 06:59 06:59 06:59 Intake Total 480 1180 350 Output Total 1300 Balance 480 -120 350 Weight 87.7 kg Lab Results: Lab Results-Last 24 Hours 10/02/24 10/02/24 10/02/24 Range/Units 04:57 16:18 20:46 WBC (3.98-10.04) x10^3/uL RBC (3.93-5.22) x10^6/uL Hgb (11.2-15.7) g/dL Hct (34.1-44.9) % MCV (79.4-94.8) fL MCH (25.6-32.2) pg MCHC (32.2-35.5) g/dL RDW (11.7-14.4) % Plt Count (182-369) x10^3/uL MPV (9.4-12.3) fL Gran % (34.0-71.1) % Immature Gran % (Auto) (0.001-0.429) % Nucleat RBC Rel Count (0.00-0.2) % Eos # (Auto) (0.04-0.36) x10^3/uL Immature Gran # (Auto) (0.001-0.031) x10^3u/L Absolute Lymphs (auto) (1.18-3.74) x10^3/uL Absolute Monos (auto) (0.24-0.86) x10^3/uL Absolute Nucleated RBC (0.00-0.012) x10^3u/L Lymphocytes % (19.3-51.7) % Monocytes % (4.7-12.5) % Eosinophils % (0.7-5.8) % Basophils % (0.1-1.2) % Absolute Granulocytes (1.56-6.13) x10^3/uL Basophils # (0.01-0.08) x10^3/uL Sodium (135-145) mmol/L Potassium (3.5-5.1) mmol/L Chloride (98-107) mmol/L Carbon Dioxide (22-30) mmol/L Anion Gap (5-15) MEQ/L BUN (7-17) mg/dL Creatinine (0.52-1.04) mg/dL Estimated GFR ML/MIN Glucose (74-106) mg/dL POC Glucometer 80 105 (74 to 106) mg/dL Calcium (8.4-10.2) mg/dL Total Bilirubin (0.2-1.3) mg/dL AST (14-36) U/L ALT (0-35) U/L Alkaline Phosphatase (38-126) U/L Serum Total Protein (6.3-8.2) g/dL Albumin (3.5-5.0) g/dL Vitamin B12 334 (239-931) pg/mL TSH 3rd Generation 3.888 (0.470-4.680) mIU/L 10/03/24 10/03/24 10/03/24 Range/Units 04:48 04:48 07:22 WBC 7.5 (3.98-10.04) x10^3/uL RBC 4.74 (3.93-5.22) x10^6/uL Hgb 13.3 (11.2-15.7) g/dL Hct 40.9 (34.1-44.9) % MCV 86.3 (79.4-94.8) fL MCH 28.1 (25.6-32.2) pg MCHC 32.5 (32.2-35.5) g/dL RDW 11.8 (11.7-14.4) % Plt Count 298 (182-369) x10^3/uL MPV 10.3 (9.4-12.3) fL Gran % 46.7 (34.0-71.1) % Immature Gran % (Auto) 0.1 (0.001-0.429) % Nucleat RBC Rel Count 0.0 (0.00-0.2) % Eos # (Auto) 0.08 (0.04-0.36) x10^3/uL Immature Gran # (Auto) 0.01 (0.001-0.031) x10^3u/L Absolute Lymphs (auto) 3.31 (1.18-3.74) x10^3/uL Absolute Monos (auto) 0.55 (0.24-0.86) x10^3/uL Absolute Nucleated RBC 0.00 (0.00-0.012) x10^3u/L Lymphocytes % 44.3 (19.3-51.7) % Monocytes % 7.4 (4.7-12.5) % Eosinophils % 1.1 (0.7-5.8) % Basophils % 0.4 (0.1-1.2) % Absolute Granulocytes 3.50 (1.56-6.13) x10^3/uL Basophils # 0.03 (0.01-0.08) x10^3/uL Sodium 138 (135-145) mmol/L Potassium 3.8 (3.5-5.1) mmol/L Chloride 105 (98-107) mmol/L Carbon Dioxide 23 (22-30) mmol/L Anion Gap 12.9 (5-15) MEQ/L BUN 10 (7-17) mg/dL Creatinine 0.79 (0.52-1.04) mg/dL Estimated GFR 106.4 ML/MIN Glucose 97 (74-106) mg/dL POC Glucometer 105 (74 to 106) mg/dL Calcium 8.7 (8.4-10.2) mg/dL Total Bilirubin 0.50 (0.2-1.3) mg/dL AST 34 (14-36) U/L ALT 50 H (0-35) U/L Alkaline Phosphatase 109 (38-126) U/L Serum Total Protein 6.6 (6.3-8.2) g/dL Albumin 4.0 (3.5-5.0) g/dL Vitamin B12 (239-931) pg/mL TSH 3rd Generation (0.470-4.680) mIU/L // Range/Units 11:21 WBC (3.98-10.04) x10^3/uL RBC (3.93-5.22) x10^6/uL Hgb (11.2-15.7) g/dL Hct (34.1-44.9) % MCV (79.4-94.8) fL MCH (25.6-32.2) pg MCHC (32.2-35.5) g/dL RDW (11.7-14.4) % Plt Count (182-369) x10^3/uL MPV (9.4-12.3) fL Gran % (34.0-71.1) % Immature Gran % (Auto) (0.001-0.429) % Nucleat RBC Rel Count (0.00-0.2) % Eos # (Auto) (0.04-0.36) x10^3/uL Immature Gran # (Auto) (0.001-0.031) x10^3u/L Absolute Lymphs (auto) (1.18-3.74) x10^3/uL Absolute Monos (auto) (0.24-0.86) x10^3/uL Absolute Nucleated RBC (0.00-0.012) x10^3u/L Lymphocytes % (19.3-51.7) % Monocytes % (4.7-12.5) % Eosinophils % (0.7-5.8) % Basophils % (0.1-1.2) % Absolute Granulocytes (1.56-6.13) x10^3/uL Basophils # (0.01-0.08) x10^3/uL Sodium (135-145) mmol/L Potassium (3.5-5.1) mmol/L Chloride (98-107) mmol/L Carbon Dioxide (22-30) mmol/L Anion Gap (5-15) MEQ/L BUN (7-17) mg/dL Creatinine (0.52-1.04) mg/dL Estimated GFR ML/MIN Glucose (74-106) mg/dL POC Glucometer 112 H (74 to 106) mg/dL Calcium (8.4-10.2) mg/dL Total Bilirubin (0.2-1.3) mg/dL AST (14-36) U/L ALT (0-35) U/L Alkaline Phosphatase (38-126) U/L Serum Total Protein (6.3-8.2) g/dL Albumin (3.5-5.0) g/dL Vitamin B12 (239-931) pg/mL TSH 3rd Generation (0.470-4.680) mIU/L Radiology Exams: Radiology Procedures Category Date Time Status CT ANGIOGRAPHY NECK [CT] Stat Exams 10/01/24 22:10 Completed CTA HEAD W AND/OR WO CONTRAST [CT] Stat Exams 10/01/24 22:11 Completed HEAD WITH CONTRAST [CT] Stat Exams 10/01/24 22:17 Completed HEAD WITHOUT CONTRAST [CT] Stat Exams 10/01/24 19:50 Completed MRI BRAIN W/O CONTRAST [MRI] Stat Exams 10/02/24 13:47 Completed Medications: Medications Generic Name Dose Route Start Last Admin Trade Name Freq PRN Reason Stop Dose Admin Albuterol Sulfate 2.5 mg 10/02/24 10:00 10/03/24 05:29 Albuterol Sulfate 2.5 Mg/3 Ml Neb IH 11/01/24 09:59 2.5 mg DAILY SUSY Administration Lipase/Protease/Amylase 5 each 10/02/24 08:00 10/03/24 08:34 Lipase/Protease/Amylase 1 Each Capsule.Dr PO 11/01/24 07:59 5 each TIDWM SUSY Administration Benztropine Mesylate 0.5 mg 10/02/24 10:00 10/03/24 11:10 Benztropine Mesylate 0.5 Mg Tablet PO 11/01/24 09:59 0.5 mg DAILY SUSY Administration Enoxaparin Sodium 40 mg 10/02/24 10:00 10/03/24 11:10 Enoxaparin Sodium 40 Mg/0.4 Ml Syringe SQ 11/01/24 09:59 40 mg DAILY SUSY Administration Hydralazine HCl 10 mg 10/02/24 02:07 Hydralazine Hcl 20 Mg/Ml Vial IV 11/01/24 02:06 Q4H PRN PRN HYPERTENSION Hydrochlorothiazide 25 mg 10/02/24 10:00 10/03/24 11:11 Hydrochlorothiazide 25 Mg Tablet PO 11/01/24 09:59 Not Given DAILY SUSY Ceftriaxone Sodium 1 gm in 100 mls @ 200 mls/hr 10/02/24 22:00 10/02/24 22:27 Rocephin 1 Gm / 100 Ml Nacl IV 11/01/24 21:59 200 mls/hr Q24H22 SUSY Administration Ibuprofen 600 mg 10/02/24 07:12 10/03/24 08:35 Ibuprofen 600 Mg Tablet PO 11/01/24 07:11 600 mg Q6H PRN PRN Administration MODERATE PAIN Insulin Human Lispro 0 unit 10/02/24 01:54 Insulin Lispro 1 Unit SQ 11/01/24 01:53 UD PRN HYPERGLYCEMIA Miscellaneous Information 1 each 10/02/24 07:45 Medication Intervention 1 Each Each 11/01/24 07:44 .RN TO CHECK SUSY Miscellaneous Information 1 each 10/02/24 07:45 Medication Intervention 1 Each Each 11/01/24 07:44 .RN TO CHECK SUSY Miscellaneous Information 1 each 10/02/24 07:45 Medication Intervention 1 Each Each 11/01/24 07:44 .RN TO CHECK SUSY Miscellaneous Information 1 each 10/02/24 07:45 Medication Intervention 1 Each Each 11/01/24 07:44 .RN TO CHECK WITH PT SUSY Miscellaneous Information 1 each 10/02/24 07:45 Medication Intervention 1 Each Each 11/01/24 07:44 .RN TO CHECK SUSY Ondansetron HCl 4 mg 10/02/24 12:32 10/02/24 11:45 Ondansetron Hcl 4 Mg/2 Ml Vial IV 11/01/24 12:31 4 mg Q6H PRN PRN Administration NAUSEA/VOMITING Discontinued Medications Generic Name Dose Route Start Last Admin Trade Name Freq PRN Reason Stop Dose Admin Ceftriaxone Sodium 1 gm in 100 mls @ 200 mls/hr 10/02/24 00:14 10/02/24 00:27 Rocephin 1 Gm / 100 Ml Nacl IV 10/02/24 00:43 200 mls/hr STAT ONE 200 mls/hr Administration Ceftriaxone Sodium Confirm 10/02/24 00:25 Rocephin 1 Gm / 100 Ml Nacl Administered 10/02/24 00:26 Dose 1 gm in 100 mls @ ud IV .STK-MED ONE Ibuprofen 600 mg 10/02/24 06:28 10/02/24 06:33 Ibuprofen 600 Mg Tablet PO 11/01/24 06:27 600 mg Q6H PRN Administration MODERATE PAIN Ketorolac Tromethamine 30 mg 10/02/24 00:35 10/02/24 00:49 Ketorolac Tromethamine 30 Mg/Ml Inj IV 10/02/24 00:36 30 mg STAT ONE Administration Ketorolac Tromethamine Confirm 10/02/24 00:44 Ketorolac Tromethamine 30 Mg/Ml Inj Administered 10/02/24 00:45 Dose 30 mg .ROUTE .STK-MED ONE Ondansetron HCl Confirm 10/02/24 11:37 Ondansetron Hcl 4 Mg/2 Ml Vial Administered 10/02/24 11:38 Dose 4 mg .ROUTE .STK-MED ONE Multi-Disciplinary Progress Notes: Multi-Disciplinary Progress Notes 10/03/24 10:05 Case Management Note by Alexa Mata S/W PATIENT -SHE CONTINUES TO DENY ANY NEW NEEDS AT TIME OF DC. SHE PLANS TO DC HOME TO HER PLF WITH HER MOTHER TO HELP AT TIME OF DC Initialized on 10/03/24 10:05 - END OF NOTE
--- NOTE | 2024-10-03 12:09 | PCM.DS ---
Discharge Summary Date of Admission: 10/02/24 00:40 Date of Discharge: 10/03/24 Admitting Physician: EMIL MCKINNEY MD Consults: Consults on Case 10/02/24 10:00 Case Management SDNE DC Needs Assessment ROUTINE Primary Care Provider: LYNETTE DOHERTY Allergies Allergies mirtazapine [From Remeron] Allergy (Severe, Verified 10/01/24 19:41) Tightness of Throat hydrocodone Allergy (Intermediate, Verified 10/01/24 19:41) hallucionations Hospital Summary - Hospital Course Hospital Course: Ms. Juarez is a 24-year-old female who presented to ED 10/02/24 with acute-onset headache localized to the occipital region, associated with photophobia, nausea, and right eye ptosis with subjective peripheral visual changes. She has a history of a similar episode one year ago involving left eye ptosis, which has since remained persistent. [facility] has evaluated the patient. Initial workup, including CT head, CTA, and MRI brain, revealed no acute intracranial pathology. However, due to ongoing symptoms and concern for underlying neurological etiologies such as idiopathic intracranial hypertension (IIH), myasthenia gravis, or demyelinating disease, further diagnostic evaluation is warranted. A lumbar puncture is required to assess for elevated intracranial pressure and cerebrospinal fluid abnormalities, but this procedure is not available at our facility. Therefore, the patient is being discharged to a higher level of care for continued evaluation and management. Ophthalmologic and neurologic assessments, along with CSF analysis and myasthenia gravis antibody testing, are recommended as part of the ongoing diagnostic workup. Patient has been accepted to [facility] awaiting transfer. Initially treated for UTI - UCult negative - antibiotics discontinued. I spent 35 minutes [id number] with the patient on the day of discharge performing discharge exam, discussing hospital stay and discharge instructions with patient and caregivers, preparation of discharge records, prescriptions & referral forms and addressing any questions/concerns the patient had as documented above. - Vitals & Intake/Output Vital Signs: Vital Signs Temperature 97.8 F 10/03/24 11:29 Pulse Rate 87 10/03/24 11:29 Respiratory Rate 20 10/03/24 11:29 Blood Pressure 141/88 10/03/24 11:29 O2 Sat by Pulse Oximetry 94 L 10/03/24 11:29 Intake & Output: Intake & Output 0410/02/24 10/03/24 10/04/24 11:59 11:59 11:59 11:59 Intake Total 480 1530 Output Total 1300 Balance 480 230 Weight 87.7 kg - Lab Result Diagrams: 10/03/24 04:48 10/03/24 04:48 Lab Results-Last 24 Hrs: Lab Results-Last 24 Hours 10/02/24 10/02/24 10/02/24 Range/Units 04:57 16:18 20:46 WBC (3.98-10.04) x10^3/uL RBC (3.93-5.22) x10^6/uL Hgb (11.2-15.7) g/dL Hct (34.1-44.9) % MCV (79.4-94.8) fL MCH (25.6-32.2) pg MCHC (32.2-35.5) g/dL RDW (11.7-14.4) % Plt Count (182-369) x10^3/uL MPV (9.4-12.3) fL Gran % (34.0-71.1) % Immature Gran % (Auto) (0.001-0.429) % Nucleat RBC Rel Count (0.00-0.2) % Eos # (Auto) (0.04-0.36) x10^3/uL Immature Gran # (Auto) (0.001-0.031) x10^3u/L Absolute Lymphs (auto) (1.18-3.74) x10^3/uL Absolute Monos (auto) (0.24-0.86) x10^3/uL Absolute Nucleated RBC (0.00-0.012) x10^3u/L Lymphocytes % (19.3-51.7) % Monocytes % (4.7-12.5) % Eosinophils % (0.7-5.8) % Basophils % (0.1-1.2) % Absolute Granulocytes (1.56-6.13) x10^3/uL Basophils # (0.01-0.08) x10^3/uL Sodium (135-145) mmol/L Potassium (3.5-5.1) mmol/L Chloride (98-107) mmol/L Carbon Dioxide (22-30) mmol/L Anion Gap (5-15) MEQ/L BUN (7-17) mg/dL Creatinine (0.52-1.04) mg/dL Estimated GFR ML/MIN Glucose (74-106) mg/dL POC Glucometer 80 105 (74 to 106) mg/dL Calcium (8.4-10.2) mg/dL Total Bilirubin (0.2-1.3) mg/dL AST (14-36) U/L ALT (0-35) U/L Alkaline Phosphatase (38-126) U/L Serum Total Protein (6.3-8.2) g/dL Albumin (3.5-5.0) g/dL Vitamin B12 334 (239-931) pg/mL TSH 3rd Generation 3.888 (0.470-4.680) mIU/L 10/03/24 10/03/24 10/03/24 Range/Units 04:48 04:48 07:22 WBC 7.5 (3.98-10.04) x10^3/uL RBC 4.74 (3.93-5.22) x10^6/uL Hgb 13.3 (11.2-15.7) g/dL Hct 40.9 (34.1-44.9) % MCV 86.3 (79.4-94.8) fL MCH 28.1 (25.6-32.2) pg MCHC 32.5 (32.2-35.5) g/dL RDW 11.8 (11.7-14.4) % Plt Count 298 (182-369) x10^3/uL MPV 10.3 (9.4-12.3) fL Gran % 46.7 (34.0-71.1) % Immature Gran % (Auto) 0.1 (0.001-0.429) % Nucleat RBC Rel Count 0.0 (0.00-0.2) % Eos # (Auto) 0.08 (0.04-0.36) x10^3/uL Immature Gran # (Auto) 0.01 (0.001-0.031) x10^3u/L Absolute Lymphs (auto) 3.31 (1.18-3.74) x10^3/uL Absolute Monos (auto) 0.55 (0.24-0.86) x10^3/uL Absolute Nucleated RBC 0.00 (0.00-0.012) x10^3u/L Lymphocytes % 44.3 (19.3-51.7) % Monocytes % 7.4 (4.7-12.5) % Eosinophils % 1.1 (0.7-5.8) % Basophils % 0.4 (0.1-1.2) % Absolute Granulocytes 3.50 (1.56-6.13) x10^3/uL Basophils # 0.03 (0.01-0.08) x10^3/uL Sodium 138 (135-145) mmol/L Potassium 3.8 (3.5-5.1) mmol/L Chloride 105 (98-107) mmol/L Carbon Dioxide 23 (22-30) mmol/L Anion Gap 12.9 (5-15) MEQ/L BUN 10 (7-17) mg/dL Creatinine 0.79 (0.52-1.04) mg/dL Estimated GFR 106.4 ML/MIN Glucose 97 (74-106) mg/dL POC Glucometer 105 (74 to 106) mg/dL Calcium 8.7 (8.4-10.2) mg/dL Total Bilirubin 0.50 (0.2-1.3) mg/dL AST 34 (14-36) U/L ALT 50 H (0-35) U/L Alkaline Phosphatase 109 (38-126) U/L Serum Total Protein 6.6 (6.3-8.2) g/dL Albumin 4.0 (3.5-5.0) g/dL Vitamin B12 (239-931) pg/mL TSH 3rd Generation (0.470-4.680) mIU/L 10/03/24 Range/Units 11:21 WBC (3.98-10.04) x10^3/uL RBC (3.93-5.22) x10^6/uL Hgb (11.2-15.7) g/dL Hct (34.1-44.9) % MCV (79.4-94.8) fL MCH (25.6-32.2) pg MCHC (32.2-35.5) g/dL RDW (11.7-14.4) % Plt Count (182-369) x10^3/uL MPV (9.4-12.3) fL Gran % (34.0-71.1) % Immature Gran % (Auto) (0.001-0.429) % Nucleat RBC Rel Count (0.00-0.2) % Eos # (Auto) (0.04-0.36) x10^3/uL Immature Gran # (Auto) (0.001-0.031) x10^3u/L Absolute Lymphs (auto) (1.18-3.74) x10^3/uL Absolute Monos (auto) (0.24-0.86) x10^3/uL Absolute Nucleated RBC (0.00-0.012) x10^3u/L Lymphocytes % (19.3-51.7) % Monocytes % (4.7-12.5) % Eosinophils % (0.7-5.8) % Basophils % (0.1-1.2) % Absolute Granulocytes (1.56-6.13) x10^3/uL Basophils # (0.01-0.08) x10^3/uL Sodium (135-145) mmol/L Potassium (3.5-5.1) mmol/L Chloride (98-107) mmol/L Carbon Dioxide (22-30) mmol/L Anion Gap (5-15) MEQ/L BUN (7-17) mg/dL Creatinine (0.52-1.04) mg/dL Estimated GFR ML/MIN Glucose (74-106) mg/dL POC Glucometer 112 H (74 to 106) mg/dL Calcium (8.4-10.2) mg/dL Total Bilirubin (0.2-1.3) mg/dL AST (14-36) U/L ALT (0-35) U/L Alkaline Phosphatase (38-126) U/L Serum Total Protein (6.3-8.2) g/dL Albumin (3.5-5.0) g/dL Vitamin B12 (239-931) pg/mL TSH 3rd Generation (0.470-4.680) mIU/L Micro Results-Entire Visit: Microbiology 10/01/24 22:26 Urine Culture - Final Urine, Void MIXED NITIN; 3 OR MORE TYPES. NO PREDOMINANT ORGANISM. NO FURTHER WORKUP. PLEASE RESUBMIT IF CLINICALLY INDICATED. - Radiology Exams Ordered Rad Exams-Entire Visit: Radiology Procedures Category Date Time Status CT ANGIOGRAPHY NECK [CT] Stat Exams 10/01/24 22:10 Completed CTA HEAD W AND/OR WO CONTRAST [CT] Stat Exams 10/01/24 22:11 Completed HEAD WITH CONTRAST [CT] Stat Exams 10/01/24 22:17 Completed HEAD WITHOUT CONTRAST [CT] Stat Exams 10/01/24 19:50 Completed MRI BRAIN W/O CONTRAST [MRI] Stat Exams 10/02/24 13:47 Completed - Procedures and Test Procedures and Tests throughout Hospitalization: Therapy Orders & Screens 10/02/24 02:46 Respiratory Therapy Assessment DAILY Comment: Diagnosis: headache, vision changes Discharge Exam General Appearance: no apparent distress Neurologic Exam: alert, 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, cooperative, motor weakness (Left arm/hand) Eye Exam: photophobia, other (Left eye ptosis) Ears, Nose, Throat Exam: normal ENT inspection Neck Exam: normal inspection Respiratory Exam: normal breath sounds, lungs clear Cardiovascular Exam: regular rate/rhythm, normal heart sounds Gastrointestinal/Abdomen Exam: soft, normal bowel sounds Pelvic Exam: deferred Rectal Exam: deferred Back Exam: normal inspection Extremity Exam: normal inspection Skin Exam: normal color Final Diagnosis/Problem List - Final Discharge Diagnosis/Problem (1) Ptosis of left eyelid Current Visit: Yes Status: Acute Code(s): H02.402 - UNSPECIFIED PTOSIS OF LEFT EYELID (2) Changes in vision Current Visit: Yes Status: Acute Code(s): H53.9 - UNSPECIFIED VISUAL DISTURBANCE (3) Acute headache Current Visit: Yes Status: Acute Code(s): R51.9 - HEADACHE, UNSPECIFIED (4) Diabetes mellitus Current Visit: Yes Status: Chronic Code(s): E11.9 - TYPE 2 DIABETES MELLITUS WITHOUT COMPLICATIONS (5) Hypertension Current Visit: Yes Status: Chronic Code(s): I10 - ESSENTIAL (PRIMARY) HYPERTENSION (6) UTI (urinary tract infection) Current Visit: Yes Status: Ruled-out Code(s): N39.0 - URINARY TRACT INFECTION, SITE NOT SPECIFIED - Discharge Discharge Date: 10/03/24 (Jimbo) Disposition: DC TO OTHER HOSP Condition: Stable Prescriptions: New HydrALAzine HCL 20 MG INJ [Apresoline 20 mg/ml Inj] 10 mg IV Q4H PRN PRN PRN Reason: Hypertension Enoxaparin Sodium [Enoxaparin Sodium] 40 mg SQ DAILY Ondansetron HCl 4 mg/2 ml [Zofran 4 MG/2 ML VIAL] 4 mg IV Q6H PRN PRN PRN Reason: Nausea/Vomiting Continue Tiotropium Crozier [Spiriva Respimat] 1 blist IH UD Furosemide 20 mg [Lasix 20 mg] 20 mg PO DAILY PRN PRN Reason: fluid retention Ergocalciferol (Vitamin D2) [Drisdol] 1 cap PO TID Albuterol 2.5 mg/3 ml Neb [Proventil 2.5 mg/3 ml Neb] 2 puffs IH DAILY Benztropine Mesylate 0.5 mg PO DAILY Cabergoline 0.5 mg PO . TWICE A WEEK Lumateperone Tosylate [Caplyta] 10.5 mg PO DAILY Lipase/Protease/Amylase [Creon Dr 24,000 Unit Capsule] 1 cap PO .WITH EVERY MEAL Budesonide/Formoterol Fumarate [Budesonide-Formoterol 160-4.5] 2 puffs IH BID Follow up with: LYNETTE DOHERTY [Primary Care Provider] - 10/09/24 10:00 am
[2024-10-03 16:01] VITALS: O2SAT 96
[2024-10-03 19:00] VITALS: BP 131/84; PULSE 72; RESP 20; TEMP 97.6
== END 2024-10-03 21:12 ==
LOC: ED 19:18 → MED SURG 10-02 00:40
PROVIDERS: ADMIT Internal Medicine; ATTEND Internal Medicine
DX: H02.402 Unspecified ptosis of left eyelid (principal); H53.9 Unspecified visual disturbance; R51.9 Headache, unspecified; E11.9 Type 2 diabetes mellitus without complications; I10 Essential (primary) hypertension; N39.0 Urinary tract infection, site not specified; R60.0 Localized edema; Z79.899 Other long term (current) drug therapy; Z91.148 Patient's other noncompliance with medication regimen for other reason
CPT/HCPCS: 36415; 70450; 70460; 70496; 70498; 70551; 80048; 80053; 81001; 81025; 82607; 82947; 84443; 84484; 85025; 85027; 87086; 93005; 93041; 94640; 94760; 99285; Q3014; 93268; J0696; J1650; J1885; J2405; J7609; A9270-GY; G0378

== ENCOUNTER 2024-11-04 05:51 | Day surgery (SDC) | payer OTHER ==
[2024-11-04] MEDS: CEFAZOLIN 2 GM/100 ML NaCl 2 GM/100 ML IVPB IV SCH (06:08)
[2024-11-04] MEDS: Lactated Ringers 1,000 ML IV SCH (06:09)
[2024-11-04 06:14] LABS: HCG URINE TEST NEGATIVE (NEGATIVE)
[2024-11-04 06:19] VITALS: RESP 16
[2024-11-04 06:30] LABS: Hematocrit 40.1 % (34.1-44.9); Hemoglobin 13.4 g/dL (11.2-15.7); Mean Cell Volume 86.4 fL (79.4-94.8); Mean Corpuscular Hemoglobin 28.9 pg (25.6-32.2); Mean Corpuscular Hgb Concent. 33.4 g/dL (32.2-35.5); Mean Platelet Volume 10.3 fL (9.4-12.3); Platelet Count 275 x10^3/uL (182-369); Red Blood Count 4.64 x10^6/uL (3.93-5.22); Red Cell Distribution Width 11.9 % (11.7-14.4); White Blood Count 7.8 x10^3/uL (3.98-10.04)
[2024-11-04 07:01] LABS: ALBUMIN 4.3 g/dL (3.5-5.0); ANION GAP 13.8 MEQ/L (5-15); BILIRUBIN,TOTAL 0.8 mg/dL (0.2-1.3); Calcium 9.1 mg/dL (8.4-10.2); Creatinine 1 0.77 mg/dL (0.52-1.04); EST GLOMERULAR FILTRATION RATE 109.7 ML/MIN; Potassium 3.9 mmol/L (3.5-5.1)
[2024-11-04] MEDS ORDERED: Sensorcaine 0.25% 10 ML ONE (07:26)
[2024-11-04] MEDS ORDERED: XYLOCAINE 1% HCL 20 ML MDV ONE (07:26)
[2024-11-04] MEDS ORDERED: Xylocaine-Mpf 2% 5 Ml Vial ONE (07:47)
[2024-11-04] MEDS ORDERED: propofoL IV ONE ×2 (07:47→08:14)
[2024-11-04] MEDS ORDERED: SUBLIMAZE 100 MCG/2 ML ONE ×2 (07:47→08:39)
[2024-11-04] MEDS ORDERED: Versed 2 MG/2 ML Injection ONE (07:47)
[2024-11-04] MEDS ORDERED: ROBINUL ONE (07:58)
[2024-11-04] MEDS ORDERED: Lactated Ringers 1,000 ML IV ONE (08:02)
--- NOTE | 2024-11-04 09:10 | XRAY ---
Indication: Right 3rd metatarsal bone biopsy. Intraoperative fluoroscopy provided for 11 seconds. 2 digital spot images submitted for interpretation demonstrates metallic localizer tip projecting over distal 3rd metatarsal. Correlate with intraoperative findings/report.
[2024-11-04 09:16] VITALS: O2SAT 98
[2024-11-04 09:26] VITALS: BP 132/86; PULSE 85; TEMP 96.5
--- NOTE | 2024-11-04 09:37 | XRAY ---
11 seconds of fluoroscopy were used in surgery for a right 3rd metatarsal bone biopsy.
--- NOTE | 2024-11-05 10:59 | OP ---
SURGERY DATE/TIME: 11/04/2024 [id number] PREOPERATIVE DIAGNOSES: 1) Diabetes mellitus type 2. 2) Diabetic peripheral neuropathy. 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 4) Avascular necrosis third metatarsal head. 5) History of resolved brachymetatarsia. 6) Osteomyelitis. POSTOPERATIVE DIAGNOSES: 1) Diabetes mellitus type 2. 2) Diabetic peripheral neuropathy. 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 4) Avascular necrosis third metatarsal head. 5) History of resolved brachymetatarsia. 6) Osteomyelitis. PROCEDURE: Open bone biopsy of third metatarsal head. SURGEON: Spike Galdamez DPM TEAR DOWN MATCHER: ADIN Whitfield HEMOSTASIS: Pressure dressing. ESTIMATED BLOOD LOSS: Approximately 3 mL. MATERIALS: 3-0 nylon. INJECTABLES: 20 mL of 1:1 mixture of 1% lidocaine plain and 0.5% bupivacaine plain injected in a metatarsal block-type fashion. INDICATIONS: The patient is a very pleasant 24-year-old female who has had several procedures from multiple providers for brachymetatarsia. When she arrived at my service, she had had one procedure for direct lengthening of the third metatarsal which was seemingly successful, albeit there was some residual deformity to the toes and discomfort at the level of the third metatarsal head. From that standpoint, decision was made, secondary to the osteoarthritis and the avascular necrosis of the third metatarsal head and given her age, as well as healing potential, to proceed with an interpositional dermal allograft to salvage the joint. Patient has done well for approximately 2 to 3 years at this point. At this time, she had noticed some increasing pain and has sought out second opinion. Some providers have brought to her attention that there may be a possibility of osteomyelitis on MRI. She did return and an MRI was obtained demonstrating potential degenerative changes, which I do believe are part of the index procedure as resurfacing of the metatarsal head was necessary to place the dermal graft and get this to take. However, this has led to some concern secondary to the increase in pain. Patient, at this time, is willing to proceed with a bone biopsy given the increase in pain to assess there was no evidence of stress fracture, stress reaction, and pain is not responding to conservative care. From that standpoint, patient wishes to proceed with a bone biopsy to rule out the bone infection definitively. Patient understands all the risks, complications and benefits of surgical intervention at this time, including but limited to infection, hematoma, seroma, possibility of delayed wound healing, non-wound healing and possible need for further surgical intervention at a later date. This is potentially a staged procedure if osteomyelitis is found for certain and then options will be discussed from a conservative or surgical standpoint if osteomyelitis is ruled out. From that standpoint, she wishes to proceed. All questions answered to patient's apparent satisfaction, we have decided to proceed. DESCRIPTION OF PROCEDURE AND FINDINGS: Patient was brought into the operating room and placed on the operating room table in the supine position. At this time, monitored anesthesia care was administered until the patient was adequately sedated. The right lower extremity was then prepped and draped in the typical sterile fashion and lowered onto the surgical field. At this time, attention was directed to, under fluoroscopic guidance, the third metatarsal head where a stab incision was made, after a 20 mL block consisting of a 1:1 mixture of 1% lidocaine plain and 0.5% bupivacaine plain was injected in a metatarsal block-type fashion surrounding the third metatarsal. Once the metatarsal was identified and the stab incision was made, blunt dissection was made down utilizing a curved mini-hemostat. Once the curved mini-hemostat was utilized, a Jamshidi needle was then utilized to retrieve a portion of bone. This was proven difficult given the firmness of the cortex of the bone, so decision was made to convert to a small open incision. Approximately 1 cm incision was then made and then a rongeur was utilized to remove a dorsal portion of the degenerative bone just behind the dermal allograft. From that standpoint, copious amounts of sterile saline were utilized to flush the surgical site. Then 3-0 nylon was utilized in a horizontal mattress-type fashion to coapt the incision. A dressing consisting of Betadine, Adaptic, 4 x 4, Kerlix, ABD and Av was then applied to the patient's right lower extremity. Patient was then returned to the postoperative anesthesia care unit with vital signs stable and vascular status intact. The patient handled the anesthesia, as well as the procedure, without significant complication. Postoperative orders as indicated in the patient's discharge chart.
== END 2024-11-04 09:36 | disposition home or self-care (01) ==
LOC: SDC 05:51
PROVIDERS: ATTEND Podiatrist Foot & Ankle Surgery
DX: M87.877 Other osteonecrosis, right toe(s) (principal); M86.9 Osteomyelitis, unspecified; E11.42 Type 2 diabetes mellitus with diabetic polyneuropathy; Z87.760 Personal history of (corrected) congenital diaphragmatic hernia or other congenital diaphragm malformations
CPT/HCPCS: 20240; 36415; 73630; 76000; 80053; 81025; 85027; 87070; 87075; J0690; J2250; J2704; J3010